=== PATIENT | female | born 1945 ===

== ENCOUNTER 2017-02-23 07:35 | Day surgery (SDC) | payer MEDICARE, MEDICAID ==
[2017-02-14 12:06] VITALS: BMI 34.5
[2017-02-23] MEDS ORDERED: Lactated Ringer's 1,000 ML IV ONE (14:15)
[2017-02-23] MEDS ORDERED: Bupivacaine/Epi 0.25%-1:200,000 10 ml PF inj IJ ONE (14:15)
[2017-02-23] MEDS ORDERED: Lidocaine 2% Inj (20ml) ONE (14:15)
[2017-02-23] MEDS ORDERED: ceFAZolin IV 2 gm in Dextrose 1 GM/50 ML BAG IVPB ONE (14:16)
[2017-02-23] MEDS ORDERED: Midazolam 2 MG/2 ML VIAL ONE (14:19)
[2017-02-23] MEDS ORDERED: Propofol 10 mg/ml Inj (20 ML) ONE (14:19)
--- NOTE | 2017-02-23 15:02 | MAM ---
PROCEDURE: Knee localization procedure. HISTORY: LEFT BREAST NEEDLE LOCALIZATION COMPARISON: None TECHNIQUE: Standard protocol for this study/examination. FINDINGS: Informed consent obtained Time-out procedure performed. Sterile technique utilized. Needle localization procedure employing 5 cm hookwire. IMPRESSION: Confirmation of the and of the hook wire and the adjacent micro clip. Pathology results are pending.
[2017-02-23] MEDS ORDERED: HYDROmorphone 0.5 mg/0.5 ml ISec IVP PRN (15:06)
[2017-02-23] MEDS ORDERED: HYDROmorphone 0.5 mg/0.5 ml ISec ONE (15:18)
[2017-02-23] MEDS ORDERED: Oxycodone/Acetaminophen 5/325 mg Tab PO PRN (15:29)
--- NOTE | 2017-02-23 15:44 | OP ---
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 PROCEDURE PERFORMED: Needle localization left excisional breast biopsy. SURGEON: Vincent Miller MD ANESTHESIA: General. ESTIMATED BLOOD LOSS: 30 mL. POSTOPERATIVE CONDITION: Stable. INDICATIONS FOR SURGERY: This is a 71-year-old female who presents with a diagnosis of carcinoma in situ with the central portion of the left breast diagnosed by an ultrasound-guided needle biopsy. Sh e now presents for a wider excision of the area to determine the extent of the carcinoma in situ by u ndergoing needle localization and open breast biopsy. PROCEDURE: The patient taken to the operating room after the lesion was localized in the radiologic suite. General anesthesia administered and the left breast was prepped and draped. A generous curvi linear incision was made over the nipple near the wire and superior and inferior flaps were raised in cluding the wire which was then transected. This was carried down to the chest wall and a large wedg e of tissue was removed. Bleeding was controlled using the Bovie. A chest wall blood vessel was rep aired. Wound was irrigated with saline. After irrigation took place, generous tissue flaps were powell sed using the Bovie and adjacent tissue transfer closure was performed using multiple layers of Monoc ryl, subcuticular Monocryl, and skin clips. The patient tolerated procedure well, [facility]. Vincent Miller MD cc: [id number] TT: 02/23/2017 15:42:37 jn
[2017-02-23 16:20] VITALS: O2SAT 99
[2017-02-23 17:06] VITALS: BP 160/60; PULSE 77; RESP 18; TEMP 97
== END 2017-02-23 17:08 | disposition home or self-care (01) ==
LOC: C.SDS 07:35
PROVIDERS: ATTEND Surgery
DX: D05.92 Unspecified type of carcinoma in situ of left breast (principal)
CPT/HCPCS: 19125; 19281; 88307; J0690; J2250; J2704; J3010; J7120

== ENCOUNTER 2017-08-16 17:14 | Observation (INO) | payer MEDICARE, MEDICAID ==
[2017-08-16 17:15] VITALS: BMI 34.5
[2017-08-16] MEDS ORDERED: Enoxaparin 40 mg Syringe SC STA (17:31)
--- NOTE | 2017-08-16 17:36 | C.PDOC ---
History Of Present Illness 71 year old female brought to ED by EMS from Dr. Ardon's office for evaluation of new onset of rapid A-fib at 150bpm. Pt c/o palpitations for 2 days. Had been referred to Dr. Ardon for SLOW heart rhythem without bradycardia noted on prior EKG's. No history of rapid A- fib in the past. Given Cardizem IV bolus without drip en route from Dr. Ardon's office. Pt recently had recent normal cardiac catherization with normal EF. Denies shortness of breath, headache, fever, chills cough, nausea, vomiting, diaphoresis, jaw pain, back pain, lower extremity pain/swelling, recent travels , recent surgery, or recent prolonged immobilization. Time Seen by Provider: 08/16/17 17:30 Chief Complaint (Nursing): Palpitations History Per: Patient History/Exam Limitations: no limitations Onset/Duration Of Symptoms: Hrs Current Symptoms Are (Timing): Still Present Reports Recently: Treated By A Physician Recent travel outside of the [place]: No Additional History Per: Patient Past Medical History Reviewed: Historical Data, Nursing Documentation, Vital Signs Vital Signs: Last Vital Signs Temp 98.8 F 08/16/17 17:19 Pulse 101 H 08/16/17 18:42 Resp 18 08/16/17 18:42 BP 120/50 L 08/16/17 18:42 Pulse Ox 97 08/16/17 18:42 - Medical History PMH: Asthma, Fractures (left ankle orif), HTN, Hypercholesterolemia, TIA (2 yeras ago) Surgical History: Endoscopy - [facility] Procedures CORONAR ARTERIOGR-2 CATH (02/08/12) LEFT HEART CARDIAC CATH (02/08/12) RT & LT HEART ANGIOCARD (02/08/12) Family History: States: Unknown Family Hx - Social History Hx Alcohol Use: No Hx Substance Use: No Review Of Systems Except As Marked, All Systems Reviewed And Found Negative. Constitutional: Negative for: Fever, Chills Cardiovascular: Positive for: Palpitations. Negative for: Chest Pain, Edema, Light Headedness Respiratory: Negative for: Cough, Shortness of Breath Gastrointestinal: Negative for: Nausea, Vomiting, Abdominal Pain, Diarrhea Skin: Negative for: Rash, Other Neurological: Negative for: Weakness, Numbness, Headache, Dizziness Physical Exam - Physical Exam Appears: Well, Non-toxic, No Acute Distress Skin: Normal Color, Warm, Dry Head: Atraumatic, Normacephalic Eye(s): bilateral: Normal Inspection, PERRL, EOMI Oral Mucosa: Moist Neck: Normal ROM, Supple Chest: Symmetrical Cardiovascular: Rhythm Regular, No Murmur Respiratory: Normal Breath Sounds, No Rales, No Rhonchi, No Wheezing Gastrointestinal/Abdominal: Soft, No Tenderness Back: No CVA Tenderness Extremity: Normal ROM, No Pedal Edema, No Deformity Neurological/Psych: Oriented x3, Normal Speech, Normal Cognition ED Course And Treatment - Laboratory Results Result Diagrams: 08/16/17 17:50 08/16/17 17:50 Lab Interpretation: Normal (trop neg.) ECG: Interpreted By Me ECG Rhythm: Atrial Fibrillation ECG Interpretation: Normal Rate From EC O2 Sat by Pulse Oximetry: 98 (RA) Pulse Ox Interpretation: Normal - Radiology CXR: Interpreted by Me CXR Interpretation: Yes: No Acute Disease, Infiltrates Progress Note: cardizem PO and lovenox SQ Reevaluation Time: 19:22 Reassessment Condition: Improved - Physician Consult Information Outcome Of Conversation: 1600: d/w Dr. Ardon- Cardio- prior to arrivanl. 1914: d /w Dr. Pyle- PMD, ok to Tele Obs. Medical Decision Making Medical Decision Making: new onset AF h/o normal cardiac cath and normal EJF Disposition Doctor Will See Patient In The: Hospital Counseled Patient/Family Regarding: Studies Performed, Diagnosis - Disposition Disposition: HOSPITALIZED Disposition Time: 18:29 Condition: GOOD - Clinical Impression Clinical Impression: New onset of headaches after age 52 - Scribe Statement The provider has reviewed the documentation as recorded by the Elvis Byrd All medical record entries made by the Elvis were at my direction and personally dictated by me. I have reviewed the chart and agree that the record accurately reflects my personal performance of the history, physical exam, medical decision making, and the department course for this patient. I have also personally directed, reviewed, and agree with the discharge instructions and disposition.
[2017-08-16] MEDS ORDERED: Enoxaparin 100 mg Syringe SC STA (17:37)
[2017-08-16 17:59] LABS: BASO % 0.5 % (0.0-2.0); EOS # 0.2 K/uL (0.0-0.7); EOS % 2.5 % (0.0-4.0); HEMATOCRIT 36.1 % (34.0-47.0); LYMPH # 2.2 K/uL (1.0-4.3); LYMPH % 30.3 % (20.0-40.0); MEAN CELL VOLUME 89.1 fL (81.0-99.0); MEAN CORPUSCULAR HEMOGLOBIN 29.8 pg (27.0-31.0); MEAN CORPUSCULAR HGB CONC 33.4 g/dL (33.0-37.0); MEAN PLATELET VOLUME 8.9 fL (7.2-11.7); MONO # 0.5 K/uL (0.0-0.8); MONO % 7.1 % (0.0-10.0); NRBC % 0.1 % (0.0-2.0); RED CELL DISTRIBUTION WIDTH 14.2 % (11.5-14.5); WHITE BLOOD COUNT 7.1 K/uL (4.8-10.8)
--- NOTE | 2017-08-16 18:09 | RAD ---
HISTORY: SOB COMPARISON: None available. TECHNIQUE: Chest, one view. FINDINGS: LUNGS: Biapical pleural thickening. No focal consolidation. Please note that chest x-ray has limited sensitivity for the detection of pulmonary masses. PLEURA: No significant pleural effusion identified. No definite pneumothorax . CARDIOVASCULAR: Heart size appears within normal limits. OSSEOUS STRUCTURES: Degenerative changes of the spine. VISUALIZED UPPER ABDOMEN: Unremarkable. OTHER FINDINGS: None. IMPRESSION: Biapical pleural thickening.
[2017-08-16 18:18] LABS: CHLORIDE 107 mmol/L (98-107); SODIUM 138 mmol/L (132-148)
[2017-08-16 18:19] LABS: POTASSIUM 4.2 mmol/L (3.6-5.2)
[2017-08-16 18:21] LABS: ALB/GLOB RATIO 1.3 (1.0-2.1); ALKALINE PHOSPHATASE 85 U/L (38-126); AST/SGOT 21 U/L (14-36); BILIRUBIN,TOTAL 0.6 mg/dL (0.2-1.3); BLOOD UREA NITROGEN 17 mg/dL (7-17); CARBON DIOXIDE 21 mmol/L (22-30); GFR AFRICAN-AMERICAN > 60; GLUCOSE,RANDOM 89 mg/dL (65-105); TOTAL PROTEIN 6.7 g/dL (6.3-8.3)
[2017-08-16 18:22] LABS: ALT/SGPT 22 U/L (9-52); CALCIUM 8.4 mg/dl (8.6-10.4)
[2017-08-16] MEDS ORDERED: Albuterol HFA 90 mcg/actuation (8 g) IH PRN (22:44)
[2017-08-16] MEDS ORDERED: Oxycodone/Acetaminophen 5/325 mg Tab ONE (23:15)
[2017-08-16] MEDS: Oxycodone/Acetaminophen 5/325 mg Tab PO PRN (23:15)
--- NOTE | 2017-08-16 23:23 | CP.PCM.PN ---
Subjective - Date & Time of Evaluation Date of Evaluation: 08/16/17 Time of Evaluation: 23:22 - Subjective Subjective: Patient for AURY cardioversion tomorrow Objective - Vital Signs/Intake and Output Vital Signs (last 24 hours): Temp Pulse Resp BP Pulse Ox 98.8 F 105 H 16 111/56 L 99 08/16/17 17:19 08/16/17 23:04 08/16/17 23:04 08/16/17 23:04 08/16/17 23:04 - Medications Medications: Current Medications Albuterol (Ventolin Hfa 90 Mcg/Actuation (8 G)) 2 puff IH RQ6 PRN PRN Reason: Shortness of Breath Diltiazem HCl (Cardizem) 60 mg PO Q8H [facility] Docusate Sodium (Colace) 100 mg PO DAILY [facility] Enoxaparin Sodium (Lovenox) 60 mg SC Q12 [facility] Losartan Potassium (Cozaar) 50 mg PO DAILY [facility] Metoprolol Tartrate (Lopressor) 50 mg PO BID [facility] Montelukast Sodium (Singulair) 10 mg PO DAILY [facility] Oxycodone/Acetaminophen (Percocet 5/325 Mg Tab) 2 tab PO Q4H PRN PRN Reason: Pain, moderate (4-7) Stop: 08/19/17 22:49 Rosuvastatin Calcium (Crestor) 2.5 mg PO HS [facility] Fluticasone/Salmeterol (Advair Diskus 250/50) 1 puff IH RQ12 [facility] - Labs Labs: 08/16/17 17:50 08/16/17 17:50 PT 11.3 SECONDS (9.7-12.2) 08/16/17 17:50 INR 1.0 08/16/17 17:50 APTT 28 SECONDS (21-34) 08/16/17 17:50
[2017-08-17] MEDS ORDERED: Atropine 0.4 mg/ml Inj (1 mL) ONE (07:36)
[2017-08-17] MEDS ORDERED: Propofol 10 mg/ml Inj (20 ML) ONE (07:36)
[2017-08-17] MEDS ORDERED: Esmolol 100 mg/10ml Inj IV ONE (07:36)
[2017-08-17] MEDS ORDERED: Albuterol HFA 90 mcg/actuation (8 g) ONE (07:36)
[2017-08-17] MEDS ORDERED: Lidocaine 4% (Laryng-O-Jet) Kit MM ONE (08:03)
[2017-08-17] MEDS: Fluticasone-Salmeterol 250-50mcg Diskus IH SCH ×2 (09:17→19:30)
[2017-08-17] MEDS ORDERED: Enoxaparin 60 mg Syringe SC SCH (10:00)
--- NOTE | 2017-08-17 10:30 | CP.PCM.PN ---
Subjective - Date & Time of Evaluation Date of Evaluation: 08/17/17 Time of Evaluation: 10:28 - Subjective Subjective: Patient s/p AURY and cardioversion to NSR Start Eliquis 5mg po bid for 6 weeks Overnight observation D/c in am if stable Objective - Vital Signs/Intake and Output Vital Signs (last 24 hours): Temp Pulse Resp BP Pulse Ox 98 F 105 H 20 140/87 97 08/17/17 07:20 08/17/17 07:20 08/17/17 07:20 08/17/17 07:20 08/17/17 07:20 - Medications Medications: Current Medications Albuterol (Ventolin Hfa 90 Mcg/Actuation (8 G)) 2 puff IH RQ6 PRN PRN Reason: Shortness of Breath Diltiazem HCl (Cardizem) 60 mg PO Q8H [facility] Last Admin: 08/17/17 03:20 Dose: 60 mg Docusate Sodium (Colace) 100 mg PO DAILY [facility] Enoxaparin Sodium (Lovenox) 60 mg SC Q12 [facility] Losartan Potassium (Cozaar) 50 mg PO DAILY [facility] Metoprolol Tartrate (Lopressor) 50 mg PO BID [facility] Montelukast Sodium (Singulair) 10 mg PO DAILY [facility] Oxycodone/Acetaminophen (Percocet 5/325 Mg Tab) 2 tab PO Q4H PRN PRN Reason: Pain, moderate (4-7) Stop: 08/19/17 22:49 Last Admin: 08/16/17 23:15 Dose: 2 tab Pantoprazole Sodium (Protonix Inj) 40 mg IVP DAILY [facility] Rosuvastatin Calcium (Crestor) 2.5 mg PO HS [facility] Fluticasone/Salmeterol (Advair Diskus 250/50) 1 puff IH RQ12 [facility] Last Admin: 08/17/17 09:17 Dose: Not Given - Labs Labs: 08/16/17 17:50 08/16/17 17:50 PT 11.3 SECONDS (9.7-12.2) 08/16/17 17:50 INR 1.0 08/16/17 17:50 APTT 28 SECONDS (21-34) 08/16/17 17:50
[2017-08-17 13:45] LABS: CHLORIDE 106 mmol/L (98-107); POTASSIUM 4.1 mmol/L (3.6-5.2); SODIUM 136 mmol/L (132-148)
[2017-08-17 13:47] LABS: ALKALINE PHOSPHATASE 67 U/L (38-126); AST/SGOT 45 U/L (14-36); BILIRUBIN,TOTAL 0.5 mg/dL (0.2-1.3); CARBON DIOXIDE 20 mmol/L (22-30); GFR AFRICAN-AMERICAN > 60; TOTAL PROTEIN 7.7 g/dL (6.3-8.3)
[2017-08-17 13:48] LABS: ALT/SGPT 26 U/L (9-52); BLOOD UREA NITROGEN 14 mg/dL (7-17); GLUCOSE,RANDOM 110 mg/dL (65-105); MAGNESIUM 1.9 mg/dL (1.6-2.3); PHOSPHOROUS 3.6 mg/dL (2.5-4.5)
--- NOTE | 2017-08-17 15:04 | CP.PCM.PN ---
Subjective - Date & Time of Evaluation Date of Evaluation: 08/17/17 Time of Evaluation: 15:00 - Subjective Subjective: PROGRESS NOTE. Attending: Dr. MARTINEZ This is a 71 year old female, originally from [place], with past medical history of asthma, HTN, HLD, breast cancer, presenting with new onset atrial fibrillation. patient had previously been seeing Dr. Ardon for "chest pain." However, she says that he told her it was non cardiac in origin and and instead related to a pinched nerve. She was told to follow up with Dr. Martinez. On day of admission, she instead went to see Dr. Ardon because she was feeling short of breath. Dr. Ardon saw that she was very tachy with a fib and sent her to [facility]. Her only symptom was shortness of breath. She denies ever being diagnosed with a fib before. PMH: Breast cancer, s/p radiation tx (completed) and lumpectomy, asthma, HTN, HLD, GERD PSH: lumpectomy Allergies: NKDA FH: Breast cancer, epilepsy Home meds: losartan, simvastatin, vitamin D/calcium, pantoprazole, metoprolol, singulair Social hx: Former smoker. No drinking. No drug use. From [place]. Objective - Vital Signs/Intake and Output Vital Signs (last 24 hours): Temp Pulse Resp BP Pulse Ox 97.8 F 55 L 20 111/54 L 99 08/17/17 13:30 08/17/17 13:30 08/17/17 13:30 08/17/17 13:30 08/17/17 13:30 - Medications Medications: Current Medications Albuterol (Ventolin Hfa 90 Mcg/Actuation (8 G)) 2 puff IH RQ6 PRN PRN Reason: Shortness of Breath Apixaban (Eliquis) 5 mg PO BID [facility] Last Admin: 08/17/17 10:45 Dose: 5 mg Diltiazem HCl (Cardizem) 60 mg PO Q8H [facility] Last Admin: 08/17/17 11:43 Dose: Not Given Docusate Sodium (Colace) 100 mg PO DAILY [facility] Last Admin: 08/17/17 11:44 Dose: Not Given Losartan Potassium (Cozaar) 50 mg PO DAILY [facility] Last Admin: 08/17/17 11:44 Dose: Not Given Metoprolol Tartrate (Lopressor) 50 mg PO BID [facility] Last Admin: 08/17/17 11:57 Dose: 50 mg Montelukast Sodium (Singulair) 10 mg PO DAILY [facility] Last Admin: 08/17/17 11:46 Dose: Not Given Oxycodone/Acetaminophen (Percocet 5/325 Mg Tab) 2 tab PO Q4H PRN PRN Reason: Pain, moderate (4-7) Stop: 08/19/17 22:49 Last Admin: 08/16/17 23:15 Dose: 2 tab Pantoprazole Sodium (Protonix Inj) 40 mg IVP DAILY [facility] Last Admin: 08/17/17 11:45 Dose: Not Given Rosuvastatin Calcium (Crestor) 2.5 mg PO HS [facility] Fluticasone/Salmeterol (Advair Diskus 250/50) 1 puff IH RQ12 [facility] Last Admin: 08/17/17 09:17 Dose: Not Given - Labs Labs: 08/16/17 17:50 08/17/17 13:00 PT 11.3 SECONDS (9.7-12.2) 08/16/17 17:50 INR 1.0 08/16/17 17:50 APTT 28 SECONDS (21-34) 08/16/17 17:50 - Constitutional Appears: Non-toxic, No Acute Distress - Head Exam Head Exam: ATRAUMATIC, NORMAL INSPECTION, NORMOCEPHALIC - Eye Exam Eye Exam: EOMI - ENT Exam ENT Exam: Mucous Membranes Moist - Respiratory Exam Respiratory Exam: NORMAL BREATHING PATTERN. absent: Respiratory Distress - Cardiovascular Exam Cardiovascular Exam: REGULAR RHYTHM, +S1, +S2 - GI/Abdominal Exam GI & Abdominal Exam: Soft, Normal Bowel Sounds. absent: Tenderness - Neurological Exam Neurological Exam: Alert, Awake, Oriented x3 - Psychiatric Exam Psychiatric exam: Normal Affect, Normal Mood - Skin Skin Exam: Dry, Intact, Normal Color, Warm Assessment and Plan - Assessment and Plan (Free Text) Assessment: This is a 71 yo female presenting with new onset a fib 1. New onset a fib -cardioverted to sinus rhythm -cardio consult. recs appreciated -will chesk tsh. -continue eliquis 5 po bid -continue cardizem 60 q 8 2. hx of asthma -continue singulair -continue advair -continue albuterol 3. hx of htn -continue losartan 50 daily -continue lopressor bid 4. hx of HLD -continue crestor 5 GI/DVT ppx -protonix daily -eliquis BID discussed with Dr. Martinez
[2017-08-17] MEDS: Oxycodone/Acetaminophen 5/325 mg Tab PO PRN (16:28)
--- NOTE | 2017-08-17 21:40 | CARD ---
APPROVED REPORT EXAM: Transesophageal echocardiogram with color flow Doppler and Synchronized Cardioversion. INDICATION Atrial Fibrillation Mitral Valve E/A ratio0.0 TDI E/Lateral E'0.0E/Medial E'0.0 Reason For Test : Rule out Intracardiac Thrombus. PROCEDURE After obtaining informed consent, patient underwent transesophageal echo in the [employer]. Type of Sedation : Conscious Sedation Sedation was provided by anesthesiologist. Sedation was achieved with intravenously. The AURY was performed complications. Synchronized Cardioversion acheived with 120 Joules after 1 attempt(s). Rhythm following Synchronized Cardioversion: Normal Sinus Rhythm Throughout the procedure, the blood pressure, pulse oximetry, cardiac rhythm, and rate were monitored. The patient tolerated the procedure without adverse effects. Recovery from conscious sedation was uneventful and vital signs were stable. LEFT VENTRICLE The left ventricle is normal size. The left ventricular function is normal. The left ventricular ejection fraction is within the normal range. There is normal LV segmental wall motion. There is no ventricular septal defect visualized. There is no left ventricular aneurysm. RIGHT VENTRICLE The right ventricle is normal size. The right ventricular systolic function is normal. ATRIA The left atrium is moderately dilated. The right atrium is moderately dilated. The interatrial septum is intact with no evidence for an atrial septal defect. AORTIC VALVE The aortic valve is normal in structure. No aortic regurgitation is present. There is no aortic valvular stenosis. There is no aortic valvular vegetation. MITRAL VALVE The mitral valve is normal in structure. There is no evidence of mitral valve prolapse. There is no mitral valve stenosis. There is no mitral valve regurgitation noted. TRICUSPID VALVE The tricuspid valve is normal in structure. There is mild tricuspid regurgitation. There is no tricuspid valve prolapse or vegetation. PULMONIC VALVE The pulmonary valve is normal in structure. GREAT VESSELS The aortic root is normal in size. <Conclusion> AURY findings as described Successful electrical cardioversion from A fib to NSR
[2017-08-17] MEDS ORDERED: Rosuvastatin Calcium 2.5 mg Tab PO SCH (22:00)
--- NOTE | 2017-08-18 00:29 | CARD ---
APPROVED REPORT EKG Measurement Heart [id number] <Conclusion> Atrial fibrillation Abnormal ECG
--- NOTE | 2017-08-18 08:19 | CP.PCM.PN ---
Subjective - Date & Time of Evaluation Date of Evaluation: 08/18/17 Time of Evaluation: 08:18 - Subjective Subjective: Given prior hx of bradycardia will d/c Cardizem Increase Metoprolol to 75 mg po bid HTN management Eliquis 5 mg po bid for 6 weeks if she maintains Sinus rhythm otherwise may need life long anticoagulation PMH: Breast cancer, s/p radiation tx (completed) and lumpectomy, asthma, HTN, HLD, GERD PSH: lumpectomy Allergies: NKDA FH: Breast cancer, epilepsy Home meds: losartan, simvastatin, vitamin D/calcium, pantoprazole, metoprolol, singulair Social hx: Former smoker. No drinking. No drug use. From [place]. Physical examination - Constitutional Appears: Non-toxic, No Acute Distress - Head Exam Head Exam: ATRAUMATIC, NORMAL INSPECTION, NORMOCEPHALIC - Eye Exam Eye Exam: EOMI - ENT Exam ENT Exam: Mucous Membranes Moist - Respiratory Exam Respiratory Exam: NORMAL BREATHING PATTERN. absent: Respiratory Distress - Cardiovascular Exam Cardiovascular Exam: REGULAR RHYTHM, +S1, +S2 - GI/Abdominal Exam GI & Abdominal Exam: Soft, Normal Bowel Sounds. absent: Tenderness - Neurological Exam Neurological Exam: Alert, Awake, Oriented x3 - Psychiatric Exam Psychiatric exam: Normal Affect, Normal Mood - Skin Skin Exam: Dry, Intact, Normal Color, Warm Objective - Vital Signs/Intake and Output Vital Signs (last 24 hours): Temp Pulse Resp BP Pulse Ox 97.9 F 57 L 18 155/79 H 97 08/18/17 07:45 08/18/17 07:45 08/18/17 07:45 08/18/17 07:45 08/18/17 07:45 Intake and Output: 08/18/17 08/18/17 06:59 18:59 Intake Total 240 Balance 240 - Medications Medications: Current Medications Albuterol (Ventolin Hfa 90 Mcg/Actuation (8 G)) 2 puff IH RQ6 PRN PRN Reason: Shortness of Breath Anastrozole (Arimidex 1 Mg Tab) 1 mg PO DAILY [facility] Apixaban (Eliquis) 5 mg PO BID [facility] Last Admin: 08/17/17 18:09 Dose: 5 mg Docusate Sodium (Colace) 100 mg PO DAILY [facility] Last Admin: 08/17/17 11:44 Dose: Not Given Losartan Potassium (Cozaar) 50 mg PO DAILY [facility] Last Admin: 08/17/17 11:44 Dose: Not Given Metoprolol Tartrate (Lopressor) 75 mg PO BID [facility] Montelukast Sodium (Singulair) 10 mg PO DAILY [facility] Last Admin: 08/17/17 11:46 Dose: Not Given Oxycodone/Acetaminophen (Percocet 5/325 Mg Tab) 2 tab PO Q4H PRN PRN Reason: Pain, moderate (4-7) Stop: 08/19/17 22:49 Last Admin: 08/17/17 16:28 Dose: 2 tab Pantoprazole Sodium (Protonix Inj) 40 mg IVP DAILY [facility] Last Admin: 08/17/17 11:45 Dose: Not Given Pneumococcal Polyvalent Vaccine (Pneumovax 23 Vaccine) 0.5 ml IM .ONCE ONE Stop: 08/19/17 10:01 Rosuvastatin Calcium (Crestor) 2.5 mg PO HS [facility] Last Admin: 08/17/17 21:20 Dose: 2.5 mg Fluticasone/Salmeterol (Advair Diskus 250/50) 1 puff IH RQ12 [facility] Last Admin: 08/17/17 19:30 Dose: Not Given - Labs Labs: 08/16/17 17:50 08/17/17 13:00 PT 11.3 SECONDS (9.7-12.2) 08/16/17 17:50 INR 1.0 08/16/17 17:50 APTT 28 SECONDS (21-34) 08/16/17 17:50 Assessment and Plan - Assessment and Plan (Free Text) Assessment: This is a 71 yo female presenting with new onset a fib 1. New onset a fib -cardioverted to sinus rhythm -continue eliquis 5 po bid 2. hx of asthma -continue singulair -continue advair -continue albuterol 3. hx of htn -continue losartan 50 daily -continue lopressor 75 bid 4. hx of HLD -continue crestor 5 GI/DVT ppx -protonix daily -eliquis BID
[2017-08-18] MEDS: Fluticasone-Salmeterol 250-50mcg Diskus IH SCH (10:39)
--- NOTE | 2017-08-18 11:18 | CP.PCM.PN ---
Subjective - Date & Time of Evaluation Date of Evaluation: 08/18/17 Time of Evaluation: 11:00 - Subjective Subjective: ANALYSIS SPECIALIST NOTES 71 yr old female admitted for afib patient seen today, meir ramos chest pain, sob, palpitations , dizziness No overnigh t events recoreded on monitor seen by Dr. Pyle today and cleared patient for discharge home today and f/u with Dr. Pyle office and Dr. Campos office discharge plan discussed with patient who understands and agrees with plan Objective - Vital Signs/Intake and Output Vital Signs (last 24 hours): Temp Pulse Resp BP Pulse Ox 97.9 F 57 L 18 155/79 H 97 08/18/17 07:45 08/18/17 07:45 08/18/17 07:45 08/18/17 07:45 08/18/17 07:45 Intake and Output: 08/18/17 08/18/17 06:59 18:59 Intake Total 240 Balance 240 - Medications Medications: Current Medications Albuterol (Ventolin Hfa 90 Mcg/Actuation (8 G)) 2 puff IH RQ6 PRN PRN Reason: Shortness of Breath Anastrozole (Arimidex 1 Mg Tab) 1 mg PO DAILY [facility] Last Admin: 08/18/17 10:06 Dose: 1 mg Apixaban (Eliquis) 5 mg PO BID [facility] Last Admin: 08/18/17 10:17 Dose: 5 mg Docusate Sodium (Colace) 100 mg PO DAILY [facility] Last Admin: 08/18/17 10:07 Dose: Not Given Losartan Potassium (Cozaar) 50 mg PO DAILY [facility] Last Admin: 08/18/17 10:05 Dose: 50 mg Metoprolol Tartrate (Lopressor) 75 mg PO BID [facility] Last Admin: 08/18/17 10:06 Dose: 75 mg Montelukast Sodium (Singulair) 10 mg PO [facility] Oxycodone/Acetaminophen (Percocet 5/325 Mg Tab) 2 tab PO Q4H PRN PRN Reason: Pain, moderate (4-7) Stop: 08/19/17 22:49 Last Admin: 08/17/17 16:28 Dose: 2 tab Pantoprazole Sodium (Protonix Inj) 40 mg IVP DAILY [facility] Last Admin: 08/18/17 10:05 Dose: 40 mg Pneumococcal Polyvalent Vaccine (Pneumovax 23 Vaccine) 0.5 ml IM .ONCE ONE Stop: 08/19/17 10:01 Rosuvastatin Calcium (Crestor) 2.5 mg PO HS [facility] Last Admin: 08/17/17 21:20 Dose: 2.5 mg Fluticasone/Salmeterol (Advair Diskus 250/50) 1 puff IH RQ12 [facility] Last Admin: 08/18/17 10:39 Dose: Not Given - Labs Labs: 08/16/17 17:50 08/17/17 13:00 PT 11.3 SECONDS (9.7-12.2) 08/16/17 17:50 INR 1.0 08/16/17 17:50 APTT 28 SECONDS (21-34) 08/16/17 17:50
[2017-08-18] MEDS ORDERED: Pneumococcal 23-Valent Vaccine IM ONE ×2 (11:35→11:45)
[2017-08-18 11:58] VITALS: BP 123/77; PULSE 58; RESP 20; TEMP 98.1; O2SAT 96
--- NOTE | 2017-08-18 16:46 | CARD ---
APPROVED REPORT EXAM: Two-dimensional and M-mode echocardiogram with Doppler and color Doppler. Other Information Quality : GoodRhythm : NSR INDICATION Atrial Fibrillation 2D DIMENSIONS IVSd1.3 (0.7-1.1cm)LVDd3.3 (3.9-5.9cm) PWd1.3 (0.7-1.1cm)LVDs2.3 (2.5-4.0cm) FS (%) 30.5 %LVEF (%)59.3 (>50%) M-Mode DIMENSIONS Left Atrium (MM)4.65 (2.5-4.0cm)Aortic Root3.07 (2.2-3.7cm) Aortic Cusp Exc.1.67 (1.5-2.0cm) Mitral Valve E/A ratio0.0 TDI E/Lateral E'0.0E/Medial E'0.0 Tricuspid Valve TR Peak [id number] Peak Gr.[id number] LEFT VENTRICLE The left ventricle is normal size. There is mild concentric left ventricular hypertrophy. Left ventricle systolic function is normal. The Ejection Fraction is 55-60%. There is normal LV segmental wall motion. Tissue Doppler imaging reveals abnormal left ventricular diastolic dysfunction. RIGHT VENTRICLE The right ventricle is normal size. There is normal right ventricular wall thickness. The right ventricular systolic function is normal. ATRIA The left atrium size is normal. The right atrium size is normal. The interatrial septum is intact with no evidence for an atrial septal defect. AORTIC VALVE The aortic valve is normal in structure. No aortic regurgitation is present. There is no aortic valvular stenosis. There is no aortic valvular vegetation. MITRAL VALVE The mitral valve is normal in structure. There is no evidence of mitral valve prolapse. There is no mitral valve stenosis. Mitral regurgitation is mild. TRICUSPID VALVE The tricuspid valve is normal in structure. There is mild tricuspid regurgitation. Right ventricular systolic pressure is estimated at 40-50 mmHg. There is mild-moderate pulmonary hypertension. PULMONIC VALVE The pulmonic valve is not well visualized. There is no pulmonic valvular regurgitation. GREAT VESSELS The aortic root is normal in size. PERICARDIAL EFFUSION There is no significant pericardial effusion. <Conclusion> Left ventricle systolic function is normal. The Ejection Fraction is 55-60%. Hypertensive heart disease. Diastolic dysfunction. No aortic regurgitation is present. Mitral regurgitation is mild. There is mild tricuspid regurgitation. There is mild-moderate pulmonary hypertension. There is no pulmonic valvular regurgitation.
[2017-08-19] MEDS ORDERED: Pneumococcal 23-Valent Vaccine IM ONE (10:00)
--- NOTE | 2017-08-19 18:11 | HP ---
HISTORY OF PRESENT ILLNESS: Ms. Nunez was admitted to the hospital with chief complaint of atrial fibrillation, new onset, clinical history of hypertension. The patient came to the ER, advised admission, said to have arthritis. The patient uses metoprolol 50 b.i.d. PHYSICAL EXAMINATION: VITAL SIGNS: Blood pressure , temperature 98, pulse rate 90 radial. HEENT: Within normal limits. NECK: Supple. CHEST: Symmetrical. HEART: Regular. ABDOMEN: Soft. EXTREMITIES: No edema. IMPRESSION: The patient suffers from atrial fibrillation, hypertension. Patient getting bedrest, anticoagulation, cardiology evaluation. Marcell Crews MD
--- NOTE | 2017-08-20 21:08 | CARD ---
APPROVED REPORT EKG Measurement Heart [id number] <Conclusion> Normal sinus rhythm Normal ECG
== END 2017-08-18 12:00 | disposition home or self-care (01) ==
LOC: C.ER 17:14 → C.9E 18:29 → C.6T 08-17 13:25
PROVIDERS: ADMIT Internal Medicine Pulmonary Disease; ATTEND Internal Medicine Pulmonary Disease
DX: I48.91 Unspecified atrial fibrillation (principal); I10 Essential (primary) hypertension; K21.9 Gastro-esophageal reflux disease without esophagitis; J45.909 Unspecified asthma, uncomplicated; E78.5 Hyperlipidemia, unspecified; Z92.3 Personal history of irradiation; Z85.3 Personal history of malignant neoplasm of breast; Z87.891 Personal history of nicotine dependence; M19.90 Unspecified osteoarthritis, unspecified site
CPT/HCPCS: 71010; 80053; 83735; 83880; 84100; 84443; 84484; 85025; 85610; 85730; 90732; 93005; 93306; 93312; 96372; 99285; C9113; G0009; G0378; J1650

== ENCOUNTER 2017-09-12 12:46 | Day surgery (SDC) | payer MEDICARE, MEDICAID ==
[2017-09-05 08:30] VITALS: BMI 39.3
[2017-09-12] MEDS ORDERED: Lactated Ringer's 1,000 ML IV ONE ×2 (17:06)
[2017-09-12] MEDS ORDERED: ceFAZolin IV 1 gm in Dextrose 1 GM/50 ML BAG IVPB ONE (17:12)
[2017-09-12] MEDS ORDERED: Midazolam 2 MG/2 ML VIAL ONE (17:12)
[2017-09-12] MEDS ORDERED: Lidocaine 1% Inj (20ml) ONE (17:12)
[2017-09-12] MEDS ORDERED: Bupivacaine HCl 0.25% PF (10 ml) Inj ONE (17:12)
[2017-09-12] MEDS ORDERED: Propofol 10 mg/ml Inj (20 ML) ONE (17:13)
[2017-09-12] MEDS ORDERED: Succinylcholine Chloride 20 mg/ml Syr (5 ml) IV ONE (17:15)
[2017-09-12] MEDS ORDERED: Oxycodone/Acetaminophen 5/325 mg Tab PO PRN (18:04)
[2017-09-12] MEDS ORDERED: HYDROmorphone 0.5 mg/0.5 ml ISec ONE (18:16)
[2017-09-12] MEDS: HYDROmorphone 0.5 mg/0.5 ml ISec IVP PRN ×2 (18:16→18:37)
[2017-09-12 20:11] VITALS: BP 165/59; PULSE 79; RESP 17; TEMP 97.2; O2SAT 93
--- NOTE | 2017-09-12 23:24 | OP ---
PROCEDURE DATE: 09/12/2017 PREOPERATIVE DIAGNOSIS: Bilateral breast mass. POSTOPERATIVE DIAGNOSIS: Left breast lipoma. PROCEDURE PERFORMED 1. Wide and deep excision of right breast mass with adjacent tissue transfer closure. 2. Left breast excisional biopsy. SURGEON: Dr. Miller. ANESTHESIA: General endotracheal. ESTIMATED BLOOD LOSS: 50 mL. POSTOPERATIVE CONDITION: Stable. INDICATIONS FOR SURGERY: This is a 71-year-old female presents with a hard inferior right breast mass and a smaller mass in the left breast not seen on mammogram but painful and both in need of needle biopsy. GROSS FINDINGS: On the right, there was a hard mass and indurated which was removed with normal tissue at its borders was also marked, in case the specimen came back malignant. A whole new tray was used for the left side; however, only a lipoma was found during this biopsy. PROCEDURE: The patient taken to the operating room, general anesthesia was administered. Both breasts were prepped and draped. Attention was turned to the right breast first and inferior mass measuring approximately 3 x 3 cm. A generous elliptical incision was made surrounding it. Tissue flaps were raised superiorly and inferiorly down to the breast fascia and was removed. Bleeding was controlled using the Bovie. Intercostal blood vessel was noted to be bleeding and was repaired using Prolene. The wound was irrigated with copious amounts of saline solution. Generous tissue flaps were raised using a Bovie and an advancement flap closure greater than 30 sq cm was performed using multiple layers of Monocryl, subcuticular Monocryl and skin clips. On the left, simple incision was made over the mass and it was dissected free and removed. Bleeding was controlled using the Bovie. A simple closure with Monocryl and clips were performed. The patient tolerated the procedure well, returned to recovery room in stable condition. Vincent Miller MD
== END 2017-09-12 19:55 | disposition home or self-care (01) ==
LOC: C.SDS 12:46
PROVIDERS: ATTEND Surgery
DX: N63.0 Unspecified lump in unspecified breast (principal)
CPT/HCPCS: 19101; 19120; 88304; 88307; J0690; J1170; J2250; J2704; J3010; J7120

== ENCOUNTER 2017-09-26 10:16 | Inpatient (IN) | payer MEDICARE, MEDICAID ==
[2017-09-05 08:30] VITALS: BMI 39.3
[2017-09-26] MEDS ORDERED: Lactated Ringer's 1,000 ML IV ONE ×2 (13:30→16:03)
[2017-09-26] MEDS ORDERED: ceFAZolin IV 2 gm in Dextrose 2 GM/50 ML BAG IVPB ONE (15:44)
[2017-09-26] MEDS: HYDROmorphone 0.5 mg/0.5 ml ISec IVP PRN ×3 (17:32→18:20)
[2017-09-26] MEDS ORDERED: Albuterol HFA 90 mcg/actuation (8 g) IH PRN (17:52)
--- NOTE | 2017-09-26 18:13 | CP.PCM.PN ---
Subjective - Date & Time of Evaluation Date of Evaluation: 09/26/17 Time of Evaluation: 17:59 - Subjective Subjective: Medicine Progress Note Patient is a 71 year old female who presents today after bilateral mastectomy with Dr Miller. The patient has history of breast cancer, asthma, HTN and A fib. Patient was seen and examined in the PACU after her procedure. She is alert, awake and oriented. Patient is complaining of pain in her chest from the surgery. Denies palpitations, shortness of breath, headache, dizziness, and abdominal pain. PMHx: Breast cancer s/p radiation tx and lumpectomy, asthma, HTN, GERD, A fib Surgical Hx: lumpectomy Family Hx: Breast cancer, epilepsy Social Hx: Former tobacco use, denies EtOH use, denies illicit drug use Allergies: NKDA Objective - Vital Signs/Intake and Output Vital Signs (last 24 hours): Temp Pulse Resp BP Pulse Ox 97.4 F L 51 L 20 154/85 H 100 09/26/17 10:38 09/26/17 10:38 09/26/17 10:38 09/26/17 10:38 09/26/17 10:38 - Medications Medications: Current Medications Albuterol (Ventolin Hfa 90 Mcg/Actuation (8 G)) 2 puff IH [id number] PRN PRN Reason: Shortness of Breath Anastrozole (Arimidex 1 Mg Tab) 1 mg PO DAILY [facility] Apixaban (Eliquis) 5 mg PO BID [facility] Docusate Sodium (Colace) 100 mg PO BID [facility] Docusate Sodium (Colace) 100 mg PO DAILY PRN PRN Reason: Constipation Home Med (Simvastatin [Simvastatin]) 10 mg PO HS [facility] Hydromorphone HCl (Dilaudid) 0.5 mg IVP Q5M PRN PRN Reason: Pain, severe (8-10) Stop: 09/26/17 19:24 Dextrose/Sodium Chloride (Dextrose 5%/0.45% Ns 1000 Ml) 1,000 mls @ 80 mls/hr IV .[id number] [facility] Cefazolin Sodium/Dextrose (Ancef Iv 1 Gm Duplex) 1 gm in 50 mls @ 100 mls/hr IVPB Q8 [facility] Ketorolac Tromethamine (Toradol) 30 mg IVP Q6 PRN PRN Reason: pain 8-10 Stop: 10/01/17 17:26 Losartan Potassium (Cozaar) 50 mg PO DAILY [facility] Metoprolol Tartrate (Lopressor) 75 mg PO BID [facility] Ondansetron HCl (Zofran Inj) 4 mg IVP ONCE PRN PRN Reason: Nausea/Vomiting Stop: 09/26/17 19:25 Ondansetron HCl (Zofran Inj) 4 mg IVP Q6 PRN PRN Reason: Nausea/Vomiting Oxycodone/Acetaminophen (Percocet 5/325 Mg Tab) 2 tab PO Q4H PRN PRN Reason: pain Stop: 09/29/17 17:26 Pantoprazole Sodium (Protonix Inj) 40 mg IVP DAILY [facility] Fluticasone/Salmeterol (Advair Diskus 250/50) 1 puff IH Q12 PRN PRN Reason: Shortness of Breath - Constitutional Appears: Non-toxic, No Acute Distress - Head Exam Head Exam: ATRAUMATIC, NORMOCEPHALIC - Eye Exam Eye Exam: EOMI, Normal appearance, PERRL Pupil Exam: NORMAL ACCOMODATION - ENT Exam ENT Exam: Mucous Membranes Moist, Normal Exam - Neck Exam Neck Exam: Normal Inspection - Respiratory Exam Respiratory Exam: Chest Wall Tenderness (anterior chest sore from surgery ), Clear to Ausculation Bilateral, NORMAL BREATHING PATTERN. absent: Rales, Rhonchi, Wheezes, Respiratory Distress - Cardiovascular Exam Cardiovascular Exam: REGULAR RHYTHM (@65bpm on tele monitor ), +S1, +S2. absent : Tachycardia, Irregular Rhythm, Murmur - GI/Abdominal Exam GI & Abdominal Exam: Soft, Normal Bowel Sounds. absent: Distended, Firm, Guarding, Tenderness - Extremities Exam Extremities Exam: Full ROM, Normal Inspection. absent: Pedal Edema, Tenderness - Neurological Exam Neurological Exam: Alert, Awake, Oriented x3 - Psychiatric Exam Psychiatric exam: Normal Affect, Normal Mood - Skin Skin Exam: Dry, Intact, Normal Color, Warm Additional comments: Chest bandage dry and clean Assessment and Plan - Assessment and Plan (Free Text) Assessment: Hx Breast cancer s/p bilateral mastectomy on 09/26/[address] Miller consulted Heme/onc Dr Cohn consulted- help appreciated Continue home med Anastrozole 1mg PO daily Pain management per surgeon PT mary eduardo Currently rate controlled Patient diagnosed in July and was seen by Dr Ardon at that time. Continue home meds: Eliquis 5mg PO BID (restart on 09/27) Metoprolol 75mg PO BID Hx Asthma SpO2 100%, well controlled Ventolin 2puff INH q6h prn SOB Advair 250/50 1 puff INH q12h HTN BP elevated after surgery. Given Hydralazine 10mg IV stat and Losartan 50mg PO x1 dose Continue home meds: Metoprolol 75mg PO BID Losartan 50mg PO daily Monitor and adjust meds as needed Prophylactic measures Eliquis 5mg PO BID (restart on 09/27) SCDs Protonix 40mg IV daily Management per Dr Crews
[2017-09-26] MEDS: ceFAZolin IV 1 gm in Dextrose 1 GM/50 ML BAG IVPB SCH (22:32)
[2017-09-26] MEDS: Rosuvastatin Calcium 2.5 mg Tab PO SCH (22:33)
[2017-09-26] MEDS: Dextrose 5%/0.45% NS 1,000 ML IV SCH (22:33)
--- NOTE | 2017-09-27 03:48 | OP ---
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 PROCEDURES PERFORMED: 1. Right modified radical mastectomy. 2. Left simple mastectomy (prophylactic). SURGEON: Vincent Miller MD ANESTHESIA: General. ESTIMATED BLOOD LOSS: 140 mL. POSTOPERATIVE CONDITION: Stable. INDICATION FOR SURGERY: A 71-year-old female who is status post a bilateral breast biopsy 3 weeks ago. Findings on the left included a benign tumor; however, findings on the right revealed a mucinous carcinoma of the inferior outer quadrant. Treatment options were discussed with the patient including breast-conserving therapy versus mastectomy versus mastectomy with prophylactic mastectomy on the left. The patient was very adamant that she wanted bilateral mastectomy. So, she is scheduled for a right modified radical mastectomy and left simple mastectomy today. GROSS FINDINGS: During the right modified radical mastectomy, some abnormally large lymph nodes were encountered in the right axilla. It was not clear whether these were reactive on the previous biopsy or possibly malignant. The right tumor was close to the chest wall and a portion of the mastectomy incision was on the inferior chest wall due to the location of the tumor. Because of this, a large advancement flap closure had to be performed prior to closure of the mastectomy, measuring approximately 70 to 80 sq. cm. DESCRIPTION OF PROCEDURE: The patient was taken to the operating room, general anesthesia was administered. Both breasts, chest wall, and neck were prepped and draped. Attention was first turned to the left prophylactic mastectomy. A standard mastectomy incision was made, fishmouth-type, surrounding the nipple. Superior and inferior flaps were raised using the Bovie down to the chest wall fascia. Bleeding was controlled using the Bovie. The breast was then taken off the chest wall musculature using the Bovie, and specimen was removed. Wound was irrigated with sterile water solution. A simple closure was performed with interrupted Monocryl and skin clips. Attention was then turned to the right side. A generous elliptical incision was made, some of it going to the chest wall immediately and would completely surround the previous biopsy site. This incision was carried into the right axilla. Superior flaps were raised first down to the chest wall fracture; and inferior flaps were then raised, some along the chest wall medially. The breast was then taken off the chest wall and abdominal fascia using the Bovie. blood vessel, which was bleeding, was repaired with Prolene. Next, the axillary dissection was carried out by removing all tissue, all contents inferior to the axillary vein, medial to the latissimus dorsi muscle, and lateral to the serratus anterior. Both the long thoracic nerve and the thoracodorsal artery and nerve were identified and preserved. The wound was irrigated with saline. Advancement flaps were raised medially in the breast incision and an advancement flap closure of approximately 8-cm was performed medially with multiple layers of Monocryl. Eliseo drains were left in both wounds prior to closure. The remaining portion of wound was closed with Monocryl and skin clips. The patient tolerated the procedure well and returned to recovery room in stable condition. Vincent Miller MD
[2017-09-27] MEDS: Oxycodone/Acetaminophen 5/325 mg Tab PO PRN ×4 (03:55→22:13)
[2017-09-27] MEDS: ceFAZolin IV 1 gm in Dextrose 1 GM/50 ML BAG IVPB SCH ×3 (05:29→21:20)
[2017-09-27] MEDS: Dextrose 5%/0.45% NS 1,000 ML IV SCH ×3 (06:02→19:34)
[2017-09-27] MEDS: Fluticasone-Salmeterol 250-50mcg Diskus IH PRN (08:23)
[2017-09-27] MEDS ORDERED: Enoxaparin 40 mg Syringe SC SCH (10:00)
[2017-09-27 17:47] LABS: BASO # 0.1 K/uL (0.0-0.2); BASO % 0.5 % (0.0-2.0); EOS # 0.1 K/uL (0.0-0.7); EOS % 1.4 % (0.0-4.0); LYMPH # 2.4 K/uL (1.0-4.3); LYMPH % 24.5 % (20.0-40.0); MEAN CELL VOLUME 88.5 fL (81.0-99.0); MEAN CORPUSCULAR HEMOGLOBIN 29.1 pg (27.0-31.0); MEAN CORPUSCULAR HGB CONC 32.9 g/dL (33.0-37.0); MEAN PLATELET VOLUME 9.1 fL (7.2-11.7); MONO # 0.9 K/uL (0.0-0.8); MONO % 9.3 % (0.0-10.0); RED CELL DISTRIBUTION WIDTH 14.2 % (11.5-14.5); WHITE BLOOD COUNT 9.9 K/uL (4.8-10.8)
[2017-09-27 18:02] LABS: ALB/GLOB RATIO 1.3 (1.0-2.1); BILIRUBIN,TOTAL 0.5 mg/dL (0.2-1.3); CALCIUM 8.4 mg/dl (8.6-10.4); POTASSIUM 4.2 mmol/L (3.6-5.2); TOTAL PROTEIN 6.3 g/dL (6.3-8.3)
[2017-09-27] MEDS: Rosuvastatin Calcium 2.5 mg Tab PO SCH (21:20)
--- NOTE | 2017-09-28 01:08 | CP.PCM.CON ---
History of Present Illness - History of Present Illness History of Present Illness: 71 year old female with a history of HTN, afib, left DCIS s/p lumpectomy, radiation, on aromatase inhibitor, diagnosed with right breast mucinous carcinoma, s/p right mastectomy with LN dissection and prophylactic left mastectomy. The patient reports to feeling well post surgery. She has mild surgical site discomfort but notes the pain is well controlled. Past medical history: HTN, afib, breast cancer Past surgical history: lumpectomy, b/l mastectomy Family history: Sister with breast cancer 30s Social history: Denies tobacco, alcohol, and illicit drug use. Allergies: Oral and IV contrast Review of systems: All remaining review of systems including HEENT, cardiovascular, respiratory, gastrointestinal, genitourinary, musculoskeletal, dermatologic, neurologic, and psychiatric are negative unless mentioned in the HPI. Past Patient History - Past Medical History & Family History Past Medical History?: Yes - Past Social History Smoking Status: Former Smoker - CARDIAC Hx Cardiac Disorders: Yes Hx Cardia Arrhythmia: Yes (ATRIAL FIB.) Hx Hypercholesterolemia: Yes Hx Hypertension: Yes - PULMONARY Hx Respiratory Disorders: Yes Hx Asthma: Yes (Last attack 3 years ago) - NEUROLOGICAL Hx Neurological Disorder: Yes Hx Transient Ischemic Attacks (TIA): Yes (2 years ago) - HEENT Hx HEENT Problems: No Other/Comment: wears glasses - RENAL Hx Chronic Kidney Disease: No - ENDOCRINE/METABOLIC Hx Endocrine Disorders: No - HEMATOLOGICAL/ONCOLOGICAL Hx Blood Disorders: Yes Hx Cancer: Yes (Breast CA on PO med ) - INTEGUMENTARY Hx Dermatological Problems: Yes Other/Comment: left breast biopsy site with felipe in place - MUSCULOSKELETAL/RHEUMATOLOGICAL Hx Musculoskeletal Disorders: Yes Hx Back Pain: Yes Hx Falls: No Hx Fractures: Yes (ORIF left ankle) Hx Herniated Disk: Yes (Lumbar) Hx Osteoarthritis: Yes - GASTROINTESTINAL Hx Gastrointestinal Disorders: No - GENITOURINARY/GYNECOLOGICAL Hx Genitourinary Disorders: Yes (Urinary frequency) Other/Comment: HX: OVARIAN CYST AND FALLOPIAN TUBE REMOVED 49 YEARS AGO-PER NOTES. - PSYCHIATRIC Hx Psychophysiologic Disorder: No Hx Substance Use: No - SURGICAL HISTORY Hx Surgeries: Yes Hx Breast Biopsy: Yes (bilateral) Hx Mastectomy: Yes (09/26/17 bilateral) Other/Comment: HX;removal ovarian cyst and fallopian tube 49 years ago. HX: Left breast lymphadectomy from breast CA. HX: AURY 08/17/17 - ANESTHESIA Hx Anesthesia: Yes Hx Anesthesia Reactions: No Hx Malignant Hyperthermia: No Has any member of the family had a problem w/ anesthesia?: No Meds Allergies/Adverse Reactions: Allergies Allergy/AdvReac Type Severity Reaction Status Date / Time Iodinated Contrast- Oral and Allergy Intermediate SHORTNESS Verified 08/16/17 17 :25 IV Dye OF BREATH [Iodinated Contrast Media - Oral and] - Medications Medications: Current Medications Albuterol (Ventolin Hfa 90 Mcg/Actuation (8 G)) 2 puff IH RQ6 PRN PRN Reason: Shortness of Breath Anastrozole (Arimidex 1 Mg Tab) 1 mg PO DAILY [facility] Last Admin: 09/27/17 10:43 Dose: 1 mg Apixaban (Eliquis) 5 mg PO BID [facility] Docusate Sodium (Colace) 100 mg PO BID [facility] Last Admin: 09/27/17 18:20 Dose: 100 mg Docusate Sodium (Colace) 100 mg PO DAILY PRN PRN Reason: Constipation Dextrose/Sodium Chloride (Dextrose 5%/0.45% Ns 1000 Ml) 1,000 mls @ 80 mls/hr IV .[id number] [facility] Last Admin: 09/27/17 19:34 Dose: Not Given Cefazolin Sodium/Dextrose (Ancef Iv 1 Gm Duplex) 1 gm in 50 mls @ 100 mls/hr IVPB Q8 [facility] Last Admin: 09/27/17 21:20 Dose: 100 mls/hr Ketorolac Tromethamine (Toradol) 30 mg IVP Q6 PRN PRN Reason: pain 8-10 Stop: 10/01/17 17:26 Last Admin: 09/26/17 21:34 Dose: 30 mg Losartan Potassium (Cozaar) 50 mg PO DAILY [facility] Last Admin: 09/27/17 10:44 Dose: 50 mg Metoprolol Tartrate (Lopressor) 75 mg PO BID [facility] Last Admin: 09/27/17 18:20 Dose: 75 mg Ondansetron HCl (Zofran Inj) 4 mg IVP Q6 PRN PRN Reason: Nausea/Vomiting Oxycodone/Acetaminophen (Percocet 5/325 Mg Tab) 2 tab PO Q4H PRN PRN Reason: pain Stop: 09/29/17 17:26 Last Admin: 09/27/17 22:13 Dose: 2 tab Pantoprazole Sodium (Protonix Inj) 40 mg IVP DAILY [facility] Last Admin: 09/27/17 10:48 Dose: 40 mg Rosuvastatin Calcium (Crestor) 2.5 mg PO HS [facility] Last Admin: 09/27/17 21:20 Dose: 2.5 mg Fluticasone/Salmeterol (Advair Diskus 250/50) 1 puff IH RQ12 PRN PRN Reason: Shortness of Breath Last Admin: 09/27/17 08:23 Dose: 1 puff Physical Exam - Head Exam Head Exam: ATRAUMATIC - Eye Exam Eye Exam: Normal appearance - ENT Exam ENT Exam: Mucous Membranes Dry - Respiratory Exam Respiratory Exam: NORMAL BREATHING PATTERN - Cardiovascular Exam Cardiovascular Exam: +S1, +S2 - GI/Abdominal Exam GI & Abdominal Exam: Normal Bowel Sounds - Extremities Exam Extremities exam: Positive for: normal inspection - Neurological Exam Neurological exam: Oriented x3 - Psychiatric Exam Psychiatric exam: Normal Affect, Normal Mood - Skin Skin Exam: Warm Results - Vital Signs Recent Vital Signs: Last Vital Signs Temp 98.4 F 09/27/17 15:14 Pulse 67 09/27/17 19:48 Resp 20 09/27/17 15:14 BP 124/63 09/27/17 19:48 Pulse Ox 99 09/27/17 15:14 - Labs Result Diagrams: 09/27/17 17:43 09/27/17 17:43 Labs: Laboratory Results - last 24 hr 09/27/17 09/27/17 09/27/17 06:31 11:38 16:48 WBC RBC Hgb Hct MCV MCH MCHC RDW Plt Count MPV Neut % (Auto) Lymph % (Auto) Phillips % (Auto) Eos % (Auto) Baso % (Auto) Neut # Lymph # Phillips # Eos # Baso # Sodium Potassium Chloride Carbon Dioxide Anion Gap BUN Creatinine Est GFR ( Amer) Est GFR (Non-Af Amer) POC Glucose (mg/dL) 116 H 128 H 125 H Random Glucose Calcium Total Bilirubin AST ALT Alkaline Phosphatase Total Protein Albumin Globulin Albumin/Globulin Ratio 09/27/17 09/27/17 09/27/17 17:43 17:43 21:40 WBC 9.9 RBC 3.39 L Hgb 9.9 L D Hct 30.0 L MCV 88.5 MCH 29.1 MCHC 32.9 L RDW 14.2 Plt Count 250 MPV 9.1 Neut % (Auto) 64.3 Lymph % (Auto) 24.5 Phillips % (Auto) 9.3 Eos % (Auto) 1.4 Baso % (Auto) 0.5 Neut # 6.4 Lymph # 2.4 Phillips # 0.9 H Eos # 0.1 Baso # 0.1 Sodium 136 Potassium 4.2 Chloride 102 Carbon Dioxide 27 Anion Gap 12 BUN 20 H Creatinine 1.2 Est GFR ( Amer) 54 Est GFR (Non-Af Amer) 45 POC Glucose (mg/dL) 112 H Random Glucose 106 H Calcium 8.4 L Total Bilirubin 0.5 AST 15 ALT 29 Alkaline Phosphatase 58 Total Protein 6.3 Albumin 3.6 Globulin 2.7 Albumin/Globulin Ratio 1.3 Assessment & Plan (1) Breast cancer Assessment and Plan: s/p mastectomy with axillary LN dissection f/u final path possible portacath depending on LN involvment case discussed with Dr. Miller Status: Acute (2) Anemia Assessment and Plan: surgical blood loss Thank you for this interesting consult. Status: Acute
[2017-09-28] MEDS: ceFAZolin IV 1 gm in Dextrose 1 GM/50 ML BAG IVPB SCH ×2 (05:35→21:38)
[2017-09-28] MEDS: Dextrose 5%/0.45% NS 1,000 ML IV SCH ×2 (05:44→08:27)
[2017-09-28] MEDS: Fluticasone-Salmeterol 250-50mcg Diskus IH PRN ×2 (07:36→19:23)
--- NOTE | 2017-09-28 14:59 | CON ---
DATE: 09/27/2017 HISTORY OF PRESENT ILLNESS: A 71-year-old female with history of hypertension, back pain, spinal stenosis and has a chief complaint of invasion of malignant breast cancer. The patient for biopsies. The patient is ready for surgery. SOCIAL HISTORY: The patient is nonsmoker. PHYSICAL EXAMINATION: GENERAL: Patient is awake, alert, oriented. VITAL SIGNS: Temperature 98, pulse 90. HEENT: Within normal limits. NECK: Supple. CHEST: Symmetrical. HEART: Regular. ABDOMEN: Soft. EXTREMITIES: No edema. IMPRESSION: The patient suffers from breast cancer, hypertension, back pain. The patient is getting blood pressure medications. I am going to discuss with Oncology and Surgery. Marcell Crews MD
[2017-09-28] MEDS: Oxycodone/Acetaminophen 5/325 mg Tab PO PRN (17:33)
[2017-09-28] MEDS: Rosuvastatin Calcium 2.5 mg Tab PO SCH (21:38)
--- NOTE | 2017-09-28 22:28 | CP.PCM.PN ---
Subjective - Date & Time of Evaluation Date of Evaluation: 09/28/17 Time of Evaluation: 19:30 - Subjective Subjective: Mild post op pain Objective - Vital Signs/Intake and Output Vital Signs (last 24 hours): Temp Pulse Resp BP Pulse Ox 98.5 F 55 L 20 163/69 H 98 09/28/17 15:25 09/28/17 15:25 09/28/17 15:25 09/28/17 17:39 09/28/17 15:25 Intake and Output: 09/28/17 09/29/17 18:59 06:59 Intake Total 600 Output Total 45 Balance 555 - Medications Medications: Current Medications Albuterol (Ventolin Hfa 90 Mcg/Actuation (8 G)) 2 puff IH RQ6 PRN PRN Reason: Shortness of Breath Anastrozole (Arimidex 1 Mg Tab) 1 mg PO DAILY [facility] Last Admin: 09/27/17 10:43 Dose: 1 mg Apixaban (Eliquis) 5 mg PO BID [facility] Docusate Sodium (Colace) 100 mg PO BID [facility] Last Admin: 09/28/17 17:33 Dose: 100 mg Docusate Sodium (Colace) 100 mg PO DAILY PRN PRN Reason: Constipation Cefazolin Sodium/Dextrose (Ancef Iv 1 Gm Duplex) 1 gm in 50 mls @ 100 mls/hr IVPB Q8 [facility] Last Admin: 09/28/17 21:38 Dose: 100 mls/hr Losartan Potassium (Cozaar) 50 mg PO DAILY [facility] Last Admin: 09/28/17 10:30 Dose: 50 mg Metoprolol Tartrate (Lopressor) 75 mg PO BID [facility] Last Admin: 09/28/17 17:39 Dose: 75 mg Ondansetron HCl (Zofran Inj) 4 mg IVP Q6 PRN PRN Reason: Nausea/Vomiting Oxycodone/Acetaminophen (Percocet 5/325 Mg Tab) 2 tab PO Q4H PRN PRN Reason: pain Stop: 09/29/17 17:26 Last Admin: 09/28/17 17:33 Dose: 2 tab Pantoprazole Sodium (Protonix Inj) 40 mg IVP DAILY [facility] Last Admin: 09/27/17 10:48 Dose: 40 mg Rosuvastatin Calcium (Crestor) 2.5 mg PO HS [facility] Last Admin: 09/28/17 21:38 Dose: 2.5 mg Fluticasone/Salmeterol (Advair Diskus 250/50) 1 puff IH RQ12 PRN PRN Reason: Shortness of Breath Last Admin: 09/28/17 19:23 Dose: 1 puff - Labs Labs: 09/27/17 17:43 09/27/17 17:43 - Head Exam Head Exam: ATRAUMATIC - Eye Exam Eye Exam: Normal appearance - ENT Exam ENT Exam: Mucous Membranes Dry - Respiratory Exam Respiratory Exam: NORMAL BREATHING PATTERN - Cardiovascular Exam Cardiovascular Exam: +S1, +S2 - GI/Abdominal Exam GI & Abdominal Exam: Normal Bowel Sounds - Extremities Exam Extremities Exam: Normal Inspection Assessment and Plan (1) Breast cancer Assessment & Plan: outpatient f/u of final pathology report Status: Acute (2) Anemia Status: Acute
[2017-09-29] MEDS: ceFAZolin IV 1 gm in Dextrose 1 GM/50 ML BAG IVPB SCH ×2 (05:32→13:35)
[2017-09-29] MEDS: Oxycodone/Acetaminophen 5/325 mg Tab PO PRN (05:35)
[2017-09-29 09:21] VITALS: PULSE 54; RESP 18; TEMP 98.3; O2SAT 99
[2017-09-29 09:41] VITALS: BP 154/85
== END 2017-09-29 14:45 | disposition home or self-care (01) | DRG 583 ==
LOC: C.9S 10:16 → EEVIPCON 10:16 → C.6T 19:34
PROVIDERS: ADMIT Surgery; ATTEND Surgery
PROC: 0HTV0ZZ Resection of Bilateral Breast, Open Approach (ICD-10-PCS; principal; 2017-09-26 13:15)
DX: C50.911 Malignant neoplasm of unspecified site of right female breast (principal); I48.91 Unspecified atrial fibrillation; D64.9 Anemia, unspecified; G40.909 Epilepsy, unspecified, not intractable, without status epilepticus; I10 Essential (primary) hypertension; J45.909 Unspecified asthma, uncomplicated

== ENCOUNTER 2017-10-17 09:49 | Emergency (ER) | payer MEDICARE, MEDICAID ==
[2017-10-17 09:49] VITALS: BMI 39.3
[2017-10-17 09:59] VITALS: RESP 20; TEMP 98.2; O2SAT 97
--- NOTE | 2017-10-17 11:37 | C.PDOC ---
History Of Present Illness 71 y/o female s/p mastectomy bilateral 09-26-17, by Dr. Miller. The patient noticed today upon awakening the bed sheets were saturated from the left chest wall. The patient denies fever and chill. Time Seen by Provider: 10/17/17 10:17 Chief Complaint (Nursing): Wound Check History Per: Patient History/Exam Limitations: no limitations Onset/Duration Of Symptoms: Days Ago Current Symptoms Are (Timing): Still Present Additional History Per: Patient Past Medical History Reviewed: Historical Data, Nursing Documentation, Vital Signs Vital Signs: Last Vital Signs Temp 98.2 F 10/17/17 09:58 Pulse 58 L 10/17/17 11:46 Resp 20 10/17/17 11:46 BP 148/75 10/17/17 11:46 Pulse Ox 97 10/17/17 12:40 - Medical History PMH: Asthma (Last attack 3 years ago), Cardia Arrhythmia (ATRIAL FIB.), Fractures (ORIF left ankle), HTN, Hypercholesterolemia, TIA (2 years ago) Denies: Chronic Kidney Disease Surgical History: Endoscopy - [facility] Procedures CORONAR ARTERIOGR-2 CATH (02/08/12) LEFT HEART CARDIAC CATH (02/08/12) RESECTION OF BILATERAL BREAST, OPEN APPROACH (09/26/17) RT & LT HEART ANGIOCARD (02/08/12) Family History: States: No Known Family Hx - Social History Hx Alcohol Use: No Hx Substance Use: No - Immunization History Hx Tetanus Toxoid Vaccination: No Hx Influenza Vaccination: Yes Hx Pneumococcal Vaccination: Yes Review Of Systems Except As Marked, All Systems Reviewed And Found Negative. Constitutional: Positive for: Other Skin: Positive for: Other ( bilateral incisions to the chest) Physical Exam - Physical Exam Appears: Non-toxic, No Acute Distress Skin: Warm, Dry Head: Atraumatic, Normacephalic Oral Mucosa: Moist Throat: Normal Neck: Supple Chest: No Deformity, Tenderness ( bilateral incisions to chest which are healing and tenderness middle aspect of the mastecomy in surgical site ), Other (no gross swelling and no erythema, incision yanes are clean and intact. Increased tenderness in middle of left incision tor, no gross dischage noted. ) Cardiovascular: Rhythm Regular Respiratory: Normal Breath Sounds Gastrointestinal/Abdominal: Normal Exam Back: Normal Inspection Extremity: Capillary Refill (2< sec.) Neurological/Psych: Oriented x3, Normal Speech, Normal Cognition ED Course And Treatment O2 Sat by Pulse Oximetry: 97 (RA) Progress Note: Upon assesssment wound check was done. Attempted to reach out to Dr. Miller who is on vaction no coverage available. Discussed with The ER Director Dr. roman, ER director and suggested to treat patient and have follow up. Will start keflex for possible beginning of chest wall infection and advised to reach Dr. Willson for immediate follow up. Patient to return to ER if symptom worsens or progresses. Disposition Counseled Patient/Family Regarding: Studies Performed, Diagnosis, Need For Followup, Rx Given - Disposition Referrals: Vincent Miller MD [Staff Provider] - Disposition: HOME/ ROUTINE Disposition Time: 11:35 Condition: STABLE Additional Instructions: follow up with Dr. Miller in 2 days call to make an appointment take medications as prescribed return to hospital if symptoms worsens or progress Prescriptions: Cephalexin [cephalexin] 500 mg PO QID #40 cap Instructions: Surgical Site Infections (ED) Forms: [facility] ([place]), General Discharge Instructions - Clinical Impression Clinical Impression: Local infection of wound, Visit for wound check - Scribe Statement The provider has reviewed the documentation as recorded by the Scribe Meka Blackwood
[2017-10-17 11:47] VITALS: BP 148/75; PULSE 58
== END 2017-10-17 11:47 | disposition home or self-care (01) ==
LOC: C.ER 09:49
DX: T81.4XXA Infection following a procedure, initial encounter (principal); E78.00 Pure hypercholesterolemia, unspecified; I10 Essential (primary) hypertension; I48.91 Unspecified atrial fibrillation; Z86.73 Personal history of transient ischemic attack (TIA), and cerebral infarction without residual deficits

== ENCOUNTER 2017-11-07 09:28 | Inpatient (IN) | payer MEDICARE, MEDICAID ==
[2017-11-07 09:29] VITALS: BMI 39.3
[2017-11-07] MEDS ORDERED: Sodium Chloride 0.9% 1,000 ML IV SCH (10:00)
--- NOTE | 2017-11-07 10:03 | C.PDOC ---
History Of Present Illness 72 y/o female with PMHx of Breast carcinoma presents to ED sent by Dr. Miller to OR for draining seroma on left breast. Patient had a breast biopsy in September where draining was noted, patient had antibiotics but draining continued and Dr. Miller now wants seroma to be drained. Patient denies any other complaints at this time. Time Seen by Provider: 11/07/17 09:43 Chief Complaint (Nursing): Medical Clearance History Per: Patient History/Exam Limitations: no limitations Onset/Duration Of Symptoms: Days Current Symptoms Are (Timing): Still Present Past Medical History Reviewed: Historical Data, Nursing Documentation, Vital Signs Vital Signs: Last Vital Signs Temp 98.4 F 11/07/17 09:32 Pulse 68 11/07/17 09:32 Resp 18 11/07/17 09:32 BP 171/74 H 11/07/17 09:32 Pulse Ox 97 11/07/17 12:33 - Medical History PMH: Asthma (Last attack 3 years ago), Cardia Arrhythmia (ATRIAL FIB.), Fractures (ORIF left ankle), HTN, Hypercholesterolemia, TIA (2 years ago) Surgical History: Endoscopy - [facility] Procedures CORONAR ARTERIOGR-2 CATH (02/08/12) LEFT HEART CARDIAC CATH (02/08/12) RESECTION OF BILATERAL BREAST, OPEN APPROACH (09/26/17) RT & LT HEART ANGIOCARD (02/08/12) Family History: States: No Known Family Hx - Social History Hx Alcohol Use: No Hx Substance Use: No - Immunization History Hx Tetanus Toxoid Vaccination: No Hx Influenza Vaccination: Yes Hx Pneumococcal Vaccination: Yes Review Of Systems Constitutional: Negative for: Fever, Chills Gastrointestinal: Negative for: Nausea, Vomiting Skin: Negative for: Rash Neurological: Negative for: Weakness, Numbness Physical Exam - Physical Exam Appears: Non-toxic, No Acute Distress Skin: Warm, Dry, No Rash Head: Atraumatic, Normacephalic Oral Mucosa: Moist Neck: Normal ROM, Supple Chest: Other (Left breast has dry dressing) Cardiovascular: Rhythm Regular Respiratory: Normal Breath Sounds, No Rales, No Rhonchi, No Wheezing Gastrointestinal/Abdominal: Soft, No Tenderness, No Guarding, No Rebound Back: No CVA Tenderness Extremity: Normal ROM, Capillary Refill (<2 seconds) Neurological/Psych: Oriented x3 ED Course And Treatment - Laboratory Results Result Diagrams: 11/07/17 10:41 11/07/17 10:41 Lab Interpretation: No Acute Changes ECG: Interpreted By Me ECG Rhythm: Sinus Rhythm Rate From EC O2 Sat by Pulse Oximetry: 97 (RA) Pulse Ox Interpretation: Normal - Radiology CXR: Interpreted by Me CXR Interpretation: Yes: No Acute Disease Progress Note: Treated with IVF NSS and NPO for OR Reassessment Condition: Unchanged - Physician Consult Information Physician Contacted: Vincent Miller Outcome Of Conversation: admit to OR Medical Decision Making Medical Decision Making: Plan: Preo op labs, Disposition Discussed With DrGeovanna: Vincent Miller Doctor Will See Patient In The: Hospital - Disposition Disposition: HOSPITALIZED Disposition Time: 10:30 Condition: STABLE - POA Present On Arrival: None - Clinical Impression Clinical Impression: Cellulitis of breast, Seroma after procedure, Breast cancer - PA / PRESS WASHER / Resident Statement MD/DO has reviewed & agrees with the documentation as recorded. - Scribe Statement The provider has reviewed the documentation as recorded by the Lisethibnito Sims All medical record entries made by the Lisethibnito were at my direction and personally dictated by me. I have reviewed the chart and agree that the record accurately reflects my personal performance of the history, physical exam, medical decision making, and the department course for this patient. I have also personally directed, reviewed, and agree with the discharge instructions and disposition. Decision To Admit - Pt Status Changed To: Hospital Disposition Of: SDS- Endo,OR,Cath,IR - . Bed Request Type: Same Day Surgery Admitting Physician: Vincent Miller Patient Diagnosis: Cellulitis of breast, Seroma after procedure, Breast cancer
[2017-11-07] MEDS ORDERED: Sodium Chloride 0.9% 1,000 ML ONE (10:11)
[2017-11-07 10:27] LABS: SQUAMOUS EPITHIAL 2 /hpf (0-5); URINE BACTERIA OCC (<OCC); URINE BILIRUBIN NEGATIVE (NEGATIVE); URINE BLOOD 2+ (NEGATIVE); URINE CLARITY Clear (Clear); URINE COLOR Yellow (YELLOW); URINE GLUCOSE (UA) NORMAL (Normal); URINE LEUKOCYTE ESTERASE 1+ Leu/uL (Negative); URINE NITRATE NEGATIVE (NEGATIVE); URINE PROTEIN NEGATIVE (NEGATIVE); URINE UROBILINOGEN NORMAL mg/dL (0.2-1.0)
[2017-11-07 10:46] LABS: BASO # 0.1 K/uL (0.0-0.2); BASO % 1.1 % (0.0-2.0); EOS # 0.1 K/uL (0.0-0.7); EOS % 0.8 % (0.0-4.0); HEMOGLOBIN 10.4 g/dL (11.0-16.0); LYMPH # 1.8 K/uL (1.0-4.3); LYMPH % 19.5 % (20.0-40.0); MEAN CELL VOLUME 87.2 fL (81.0-99.0); MEAN CORPUSCULAR HEMOGLOBIN 29.8 pg (27.0-31.0); MEAN CORPUSCULAR HGB CONC 34.2 g/dL (33.0-37.0); MEAN PLATELET VOLUME 9.3 fL (7.2-11.7); MONO # 0.8 K/uL (0.0-0.8); MONO % 9.2 % (0.0-10.0); NEUT # 6.4 K/uL (1.8-7.0); NEUT % 69.4 % (50.0-75.0); RBC 3.5 Mil/uL (3.80-5.20); WHITE BLOOD COUNT 9.2 K/uL (4.8-10.8)
[2017-11-07 10:58] LABS: ALB/GLOB RATIO 1.1 (1.0-2.1); ALBUMIN 3.9 g/dL (3.5-5.0); ALT/SGPT 13 U/L (9-52); AST/SGOT 18 U/L (14-36); BLOOD UREA NITROGEN 13 mg/dL (7-17); CALCIUM 8.9 mg/dl (8.6-10.4); GFR AFRICAN-AMERICAN > 60; GFR NON-AFRICAN AMERICAN > 60
--- NOTE | 2017-11-07 11:26 | RAD ---
HISTORY: SOB COMPARISON: Chest x-ray performed 08/16/17 TECHNIQUE: Chest PA and lateral FINDINGS: Examination limited by habitus. LUNGS: Biapical pleural thickening. No focal consolidation. Please note that chest x-ray has limited sensitivity for the detection of pulmonary masses. PLEURA: No significant pleural effusion identified. No definite pneumothorax . CARDIOVASCULAR: The cardiomediastinal silhouette appears within normal limits of size. OSSEOUS STRUCTURES: No acute osseous abnormality identified. VISUALIZED UPPER ABDOMEN: Unremarkable. OTHER FINDINGS: None. IMPRESSION: Biapical pleural thickening.
[2017-11-07] MEDS ORDERED: Bupivacaine HCl 0.25% PF (10 ml) Inj ONE ×2 (13:37→13:38)
[2017-11-07] MEDS ORDERED: ceFAZolin IV 2 gm in Dextrose 2 GM/50 ML BAG IVPB ONE (13:38)
[2017-11-07] MEDS ORDERED: Lidocaine 1% Inj (20ml) ONE (13:38)
[2017-11-07] MEDS ORDERED: Lactated Ringer's 1,000 ML IV ONE ×2 (14:06)
[2017-11-07] MEDS ORDERED: Propofol 10 mg/ml Inj (20 ML) ONE (14:32)
[2017-11-07] MEDS ORDERED: HYDROmorphone 0.5 mg/0.5 ml ISec IVP PRN (15:05)
[2017-11-07] MEDS ORDERED: ceFAZolin IV 1 gm in Dextrose 1 GM/50 ML BAG IVPB SCH (16:00)
[2017-11-07] MEDS: Dextrose 5%/0.45% NS 1,000 ML IV SCH (19:18)
[2017-11-07] MEDS: ceFAZolin IV 1 gm in Dextrose 1 GM/50 ML BAG IVPB SCH (21:59)
[2017-11-07] MEDS: Oxycodone/Acetaminophen 5/325 mg Tab PO PRN (22:05)
[2017-11-08 01:13] VITALS: RESP 20; TEMP 98.5
--- NOTE | 2017-11-08 01:28 | OP ---
PROCEDURE DATE: 11/07/2017 PREOPERATIVE DIAGNOSIS: Seroma over the left chest wall. POSTOPERATIVE DIAGNOSIS: Seroma over the left chest wall. PROCEDURE PERFORMED: Incision and drainage of seroma over the left chest wall. SURGEON: Vincent Miller MD. ANESTHESIA: General. ESTIMATED BLOOD LOSS: 20 mL. POSTOPERATIVE CONDITION: Stable. INDICATION FOR SURGERY: This is a 72-year-old female who is one month status post bilateral mastectomy. She has developed a seroma over the left chest wall, which appears to be becoming infected, and she is now admitted for drainage under anesthesia. DESCRIPTION OF PROCEDURE: The patient was taken to the operating room, general anesthesia was administered, and the left chest wall was prepped and draped. The area which was draining was opened using a clamp and a Bovie. Once it was adequately opened, the seroma was easily drained and cultured. It was irrigated with copious amounts of saline solution. Bleeding was controlled using the Bovie. A larger bleeder on chest wall was repaired. The wound was irrigated with saline and closed with skin clips. Patient tolerated the procedure well and returned to the recovery room in stable condition. Vincent Miller MD
[2017-11-08] MEDS: Dextrose 5%/0.45% NS 1,000 ML IV SCH ×2 (03:30→09:39)
[2017-11-08 06:50] LABS: BASO % 0.5 % (0.0-2.0); EOS # 0.1 K/uL (0.0-0.7); EOS % 1.9 % (0.0-4.0); HEMOGLOBIN 9.5 g/dL (11.0-16.0); LYMPH # 1.9 K/uL (1.0-4.3); LYMPH % 27.5 % (20.0-40.0); MEAN CELL VOLUME 87.6 fL (81.0-99.0); MEAN CORPUSCULAR HGB CONC 34.2 g/dL (33.0-37.0); MEAN PLATELET VOLUME 9.4 fL (7.2-11.7); MONO # 0.7 K/uL (0.0-0.8); MONO % 9.7 % (0.0-10.0); NEUT # 4.1 K/uL (1.8-7.0); NEUT % 60.4 % (50.0-75.0); RBC 3.16 Mil/uL (3.80-5.20); RED CELL DISTRIBUTION WIDTH 13.7 % (11.5-14.5); WHITE BLOOD COUNT 6.8 K/uL (4.8-10.8)
[2017-11-08] MEDS: ceFAZolin IV 1 gm in Dextrose 1 GM/50 ML BAG IVPB SCH ×2 (06:54→14:28)
[2017-11-08] MEDS: Oxycodone/Acetaminophen 5/325 mg Tab PO PRN (06:57)
[2017-11-08 07:01] LABS: BLOOD UREA NITROGEN 13 mg/dL (7-17); CALCIUM 8.7 mg/dl (8.6-10.4); GFR AFRICAN-AMERICAN > 60; GFR NON-AFRICAN AMERICAN > 60
[2017-11-08] MEDS ORDERED: Potassium Chloride 20 mEq ER Tab PO STA (07:16)
[2017-11-08] MEDS ORDERED: Fluticasone-Salmeterol 250-50mcg Diskus IH PRN (07:30)
[2017-11-08 08:23] VITALS: BP 158/68; PULSE 70; O2SAT 98
[2017-11-08] MEDS ORDERED: Pantoprazole 40 mg EC Tab PO SCH (10:00)
--- NOTE | 2017-11-08 10:16 | CP.PCM.CON ---
History of Present Illness - History of Present Illness History of Present Illness: Medicine consult note for Dr. Cresw: Patient is a 72 year old female with a PMH of Afib, asthma, HTN,, hyperlipidemia , TIA (2 years ago), and breast cancer which she is currently undergoing treatment with Dr. Abiel Cohn (heme/onc). Patient has bilateral mastectomy in September and developed a seroma post surgery. Yesterday this seroma was drained by Dr. Miller in the OR. Patient admits to slight pain at this area today which is controlled with medications. She denies fever/chills, headaches, changes in vision, N/V, abdominal pain, numbness/tinlging, leg edema, or calf tenderness. Past medical history: Afib, asthma, HTN,, hyperlipidemia, TIA (2 years ago), and breast cancer Past surgical history: lumpectomy, b/l mastectomy Family history: Sister with breast cancer 30s Allergies: Oral and IV contrast Medications: Simvastatin 10mg PO HS, Protonix 40mg PO daily, Endocet 10/325mg 1 tab PO Q6 hours prn, Lopressor 75mg PO BID, Losartan 50mg PO daily. Advair, Colace 100mg PO daily, Eliquis 5mg PO BID, Anastrozole 1mg PO daily, Ventolin HFA Social history: Denies tobacco, alcohol, and illicit drug use. PMD: Dr. Eleonora Aranda/onc: Dr. Cohn Review of Systems - Constitutional Constitutional: absent: Chills, Fever - EENT Eyes: absent: Blurred Vision, Change in Vision - Cardiovascular Cardiovascular: absent: Chest Pain, Chest Pain at Rest, Diaphoresis, Leg Edema, Palpitations, Syncope - Respiratory Respiratory: absent: Cough, Dyspnea - Gastrointestinal Gastrointestinal: absent: Abdominal Pain, Nausea, Vomiting - Genitourinary Genitourinary: absent: Change in Urinary Stream, Difficulty Urinating Past Patient History - Past Medical History & Family History Past Medical History?: Yes - Past Social History Smoking Status: Former Smoker - CARDIAC Hx Cardia Arrhythmia: Yes (ATRIAL FIB.) Hx Hypercholesterolemia: Yes Hx Hypertension: Yes - PULMONARY Hx Asthma: Yes (Last attack 3 years ago) - NEUROLOGICAL Hx Transient Ischemic Attacks (TIA): Yes (2 years ago) - HEENT Hx HEENT Problems: No Other/Comment: wears glasses - RENAL Hx Chronic Kidney Disease: No - ENDOCRINE/METABOLIC Hx Endocrine Disorders: No - HEMATOLOGICAL/ONCOLOGICAL Hx Blood Disorders: Yes Hx Cancer: Yes (R Breast CA on PO med) - INTEGUMENTARY Hx Dermatological Problems: Yes Other/Comment: left breast biopsy site with felipe in place - MUSCULOSKELETAL/RHEUMATOLOGICAL Hx Falls: Yes (3 weeks ago) Hx Fractures: Yes (ORIF left ankle) - GASTROINTESTINAL Hx Gastrointestinal Disorders: No - GENITOURINARY/GYNECOLOGICAL Hx Genitourinary Disorders: Yes (Urinary frequency) Other/Comment: HX: OVARIAN CYST AND FALLOPIAN TUBE REMOVED 49 YEARS AGO-PER NOTES. - PSYCHIATRIC Hx Substance Use: No - SURGICAL HISTORY Hx Surgeries: Yes Hx Breast Biopsy: Yes (bilateral) Hx Mastectomy: Yes (09/26/17 bilateral) Other/Comment: HX;removal ovarian cyst and fallopian tube 49 years ago. HX: Left breast lymphadectomy from breast CA. HX: AURY 08/17/17 - ANESTHESIA Hx Anesthesia: Yes Hx Anesthesia Reactions: No Hx Malignant Hyperthermia: No Has any member of the family had a problem w/ anesthesia?: No Meds Allergies/Adverse Reactions: Allergies Allergy/AdvReac Type Severity Reaction Status Date / Time Iodinated Contrast- Oral and Allergy Intermediate SHORTNESS Verified 10/17/17 09 :58 IV Dye OF BREATH [Iodinated Contrast Media - Oral and] - Medications Medications: Current Medications Anastrozole (Arimidex 1 Mg Tab) 1 mg PO DAILY [facility] Last Admin: 11/08/17 09:44 Dose: 1 mg Docusate Sodium (Colace) 100 mg PO BID [facility] Last Admin: 11/08/17 09:40 Dose: 100 mg Dextrose/Sodium Chloride (Dextrose 5%/0.45% Ns 1000 Ml) 1,000 mls @ 80 mls/hr IV .[id number] [facility] Last Admin: 11/08/17 09:39 Dose: 80 mls/hr Cefazolin Sodium/Dextrose (Ancef Iv 1 Gm Duplex) 1 gm in 50 mls @ 100 mls/hr IVPB Q8H [facility] Last Admin: 11/08/17 06:54 Dose: 100 mls/hr Losartan Potassium (Cozaar) 50 mg PO DAILY [facility] Last Admin: 11/08/17 09:41 Dose: 50 mg Metoprolol Tartrate (Lopressor) 75 mg PO BID [facility] Last Admin: 01/18/18 09:40 Dose: 75 mg Ondansetron HCl (Zofran Inj) 4 mg IVP Q6 PRN PRN Reason: Nausea/Vomiting Oxycodone/Acetaminophen (Percocet 5/325 Mg Tab) 1 tab PO Q4H PRN PRN Reason: pain Stop: 11/10/17 15:01 Last Admin: 11/08/17 06:57 Dose: 1 tab Pantoprazole Sodium (Protonix Ec Tab) 40 mg PO DAILY [facility] Last Admin: 11/08/17 09:40 Dose: 40 mg Rosuvastatin Calcium (Crestor) 5 mg PO HS [facility] Stop: 11/08/17 22:01 Last Admin: 11/07/17 22:04 Dose: 5 mg Fluticasone/Salmeterol (Advair Diskus 250/50) 1 puff IH RQ12 PRN PRN Reason: Shortness of Breath Physical Exam - Constitutional Appears: Non-toxic, No Acute Distress - Head Exam Head Exam: ATRAUMATIC, NORMAL INSPECTION - Eye Exam Eye Exam: EOMI - ENT Exam ENT Exam: Mucous Membranes Moist - Respiratory Exam Respiratory Exam: Clear to Auscultation Bilateral, NORMAL BREATHING PATTERN. absent: Respiratory Distress - Cardiovascular Exam Cardiovascular Exam: Irregular Rhythm, +S1, +S2. absent: Tachycardia, JVD Additional comments: Chest exam - s/p b/l mastectomy, drain in place, dressing c/d/i - GI/Abdominal Exam GI & Abdominal Exam: Normal Bowel Sounds, Soft. absent: Distended, Firm, Guarding, Tenderness - Extremities Exam Extremities exam: Positive for: normal inspection. Negative for: calf tenderness, pedal edema - Back Exam Back exam: NORMAL INSPECTION. absent: CVA tenderness (L), CVA tenderness (R), paraspinal tenderness - Neurological Exam Neurological exam: Alert, CN II-XII Intact, Normal Gait, Oriented x3 - Psychiatric Exam Psychiatric exam: Normal Affect, Normal Mood Results - Vital Signs Recent Vital Signs: Last Vital Signs Temp 98.5 F 11/08/17 08:21 Pulse 70 11/08/17 08:21 Resp 20 11/08/17 08:21 BP 158/68 H 11/08/17 09:40 Pulse Ox 98 11/08/17 08:21 - Labs Result Diagrams: 11/08/17 06:39 11/08/17 06:39 Labs: Laboratory Results - last 24 hr 11/07/17 11/07/17 11/07/17 10:11 10:41 10:41 WBC 9.2 RBC 3.50 L Hgb 10.4 L Hct 30.5 L MCV 87.2 MCH 29.8 MCHC 34.2 RDW 14.0 Plt Count 245 MPV 9.3 Neut % (Auto) 69.4 Lymph % (Auto) 19.5 L [place] % (Auto) 9.2 Eos % (Auto) 0.8 Baso % (Auto) 1.1 Neut # 6.4 Lymph # 1.8 [place] # 0.8 Eos # 0.1 Baso # 0.1 Sodium 136 Potassium 4.2 Chloride 101 Carbon Dioxide 25 Anion Gap 14 BUN 13 Creatinine 0.8 Est GFR ( Amer) > 60 Est GFR (Non-Af Amer) > 60 Random Glucose 98 Calcium 8.9 Total Bilirubin 0.8 AST 18 ALT 13 Alkaline Phosphatase 70 Total Protein 7.3 Albumin 3.9 Globulin 3.4 Albumin/Globulin Ratio 1.1 Urine Color Yellow Urine Clarity Clear Urine pH 6.0 Ur Specific [place] 1.012 Urine Protein Negative Urine Glucose (UA) Normal Urine Ketones Negative Urine Blood 2+ H Urine Nitrate Negative Urine Bilirubin Negative Urine Urobilinogen Normal Ur Leukocyte Esterase 1+ H Urine WBC (Auto) 12 H Urine RBC (Auto) 1 Ur Squamous Epith Cells 2 Urine Bacteria Occ H Blood Type Antibody Screen 11/07/17 11/08/17 11/08/17 10:41 06:39 06:39 WBC 6.8 RBC 3.16 L Hgb 9.5 L Hct 27.7 L MCV 87.6 MCH 30.0 MCHC 34.2 RDW 13.7 Plt Count 238 MPV 9.4 Neut % (Auto) 60.4 Lymph % (Auto) 27.5 [place] % (Auto) 9.7 Eos % (Auto) 1.9 Baso % (Auto) 0.5 Neut # 4.1 Lymph # 1.9 [place] # 0.7 Eos # 0.1 Baso # 0.0 Sodium 133 Potassium 3.5 L Chloride 101 Carbon Dioxide 26 Anion Gap 10 BUN 13 Creatinine 0.7 Est GFR ( Amer) > 60 Est GFR (Non-Af Amer) > 60 Random Glucose 108 H Calcium 8.7 Total Bilirubin AST ALT Alkaline Phosphatase Total Protein Albumin Globulin Albumin/Globulin Ratio Urine Color Urine Clarity Urine pH Ur Specific [place] Urine Protein Urine Glucose (UA) Urine Ketones Urine Blood Urine Nitrate Urine Bilirubin Urine Urobilinogen Ur Leukocyte Esterase Urine WBC (Auto) Urine RBC (Auto) Ur Squamous Epith Cells Urine Bacteria Blood Type O POSITIVE Antibody Screen Negative Assessment & Plan - Assessment and Plan (Free Text) Assessment: Breast seroma All Surgical and pain management per Dr. Miller Seroma drainage POD #1 pain controlled with medications Hypokalemia K 3.5 KCl 40 meq x 1 dose given today Atrial fibrillation Rate controlled. Patient is to resume Eliquis 5mg PO BID. Was held for one day preop Patient was taking Eliquis for the last two months only once a day. It was explained to the patient that she should be taking twice a day. Will given the patient a new script for Eliquis. Breast Cancer Anastrozole 1mg PO daily Continue to follow up with Dr. Cohn outpatient Hypertension Controlled Losartan 50mg PO daily Lopressor 75mg PO BID Hyperlipidemia Crestor 5mg PO HS Asthma Controlled Advair Albuterol treatments prn SOB Prophylactic Measures on Eliquis SCDS Protonix Colace 100mg PO BID Discussed with Dr. Crews. All medical management per Dr. Crews.
[2017-11-08] MEDS ORDERED: Albuterol 0.083% Inhal Sol (2.5 mg/3 mL) UD INH PRN (11:26)
--- NOTE | 2017-11-08 12:05 | CARD ---
APPROVED REPORT EKG Measurement Heart [id number] <Conclusion> Sinus rhythm with premature supraventricular complexes Nonspecific T wave abnormality Abnormal ECG
[2017-11-08] MEDS ORDERED: Fluticasone-Salmeterol 250-50mcg Diskus IH SCH (20:00)
--- NOTE | 2017-11-09 07:46 | CON ---
DATE: 11/08/2017 HISTORY OF PRESENT ILLNESS: Ms. Nunez was admitted to the hospital with chief complaint of seroma of the breast after breast cancer surgery. Patient has atrial fibrillation, degenerative arthritis. Patient needs Eliquis and Percocet. Patient is a nonsmoker. PHYSICAL EXAMINATION: GENERAL: Patient is awake, alert, and oriented. VITAL SIGNS: Temperature 98, pulse 90. HEENT: Within normal limits. NECK: Supple. CHEST: Symmetrical. HEART: Regular. BREASTS: There is a dressing on the breast with a drain. ABDOMEN: Soft. EXTREMITIES: No edema. ASSESSMENT AND PLAN: Patient suffered from seroma of the breast, status post mastectomy for breast cancer. Patient will restart Eliquis. Pain medication as needed. Marcell Crews MD
== END 2017-11-08 14:00 | disposition home or self-care (01) | DRG 921 ==
LOC: C.ER 09:28 → C.SDS 10:22 → C.9S 15:00 → C.3T 19:04
PROVIDERS: ADMIT Surgery; ATTEND Surgery
PROC: 0W980ZZ Drainage of Chest Wall, Open Approach (ICD-10-PCS; principal; 2017-11-07 15:15)
DX: L76.34 Postprocedural seroma of skin and subcutaneous tissue following other procedure (principal); I48.91 Unspecified atrial fibrillation; E87.6 Hypokalemia; Y83.9 Surgical procedure, unspecified as the cause of abnormal reaction of the patient, or of later complication, without mention of misadventure at the time of the procedure; I10 Essential (primary) hypertension; J45.909 Unspecified asthma, uncomplicated; M19.90 Unspecified osteoarthritis, unspecified site; N61.0 Mastitis without abscess; Z80.3 Family history of malignant neoplasm of breast; E78.00 Pure hypercholesterolemia, unspecified; E78.5 Hyperlipidemia, unspecified; Z90.13 Acquired absence of bilateral breasts and nipples; Z85.3 Personal history of malignant neoplasm of breast; Z86.73 Personal history of transient ischemic attack (TIA), and cerebral infarction without residual deficits; Z87.891 Personal history of nicotine dependence

== ENCOUNTER 2018-01-30 09:19 | Inpatient (IN) | payer MEDICARE, MEDICAID ==
[2018-01-25 09:36] VITALS: BMI 34.9
[2018-01-30 10:39] LABS: INR 1.1; PROTHROMBIN TIME 12.4 SECONDS (9.7-12.2)
[2018-01-30] MEDS ORDERED: Lactated Ringer's 1,000 ML IV ONE (12:50)
[2018-01-30] MEDS ORDERED: Propofol 10 mg/ml Inj (20 ML) ONE (12:57)
[2018-01-30] MEDS ORDERED: ceFAZolin 1 gm in NS 0 GM/0 ML BAG IVPB ONE (12:57)
[2018-01-30] MEDS ORDERED: Bupivacaine HCl 0.5% PF (30 ml) Inj ONE (12:57)
[2018-01-30] MEDS ORDERED: Midazolam 2 MG/2 ML VIAL ONE (12:57)
[2018-01-30] MEDS ORDERED: Lactated Ringer's 1,000 ML IV SCH (13:45)
[2018-01-30] MEDS: Magnesium Sulfate 1 gm in D5W 1 GM/100 ML BAG IVPB SCH ×2 (18:16→19:22)
[2018-01-30] MEDS ORDERED: Fluticasone-Salmeterol 250-50mcg Diskus IH PRN (22:04)
[2018-01-30] MEDS ORDERED: Albuterol HFA 90 mcg/actuation (8 g) IH PRN ×2 (22:04→23:33)
[2018-01-30 22:16] VITALS: RESP 20
--- NOTE | 2018-01-30 23:27 | OP ---
PROCEDURE DATE: 01/30/2018 PREOPERATIVE DIAGNOSIS: Metastatic lymph node at the right axilla. POSTOPERATIVE DIAGNOSIS: Metastatic lymph node at the right axilla. PROCEDURE PERFORMED: Attempted excision of metastatic lymph node at the right axilla. SURGEON: Vincent Miller MD ANESTHESIA: General. ESTIMATED BLOOD LOSS: Zero. POSTOPERATIVE CONDITION: Guarded. HISTORY OF PRESENT ILLNESS: This is a 72-year-old female who presented after bilateral mastectomy, found to have what appeared to be a metastatic lymph node on a CAT scan which was performed recently. She was scheduled of excavation at her right axilla and removal. DESCRIPTION OF PROCEDURE: The patient was taken to the operating room, placed on a monitor, found to be in rapid atrial flutter. She was given medications including sedatives and Esmolol, however, the rapid atrial flutter persisted. For this reason, the procedure was abandoned. The patient was reported to the recovery room. A cardiology consult was obtained, and she would be admitted to a monitored bed. Vincent Miller MD
[2018-01-31 07:58] LABS: BASO # 0.1 K/uL (0.0-0.2); BASO % 0.7 % (0.0-2.0); EOS # 0.2 K/uL (0.0-0.7); EOS % 2.6 % (0.0-4.0); HEMOGLOBIN 11.4 g/dL (11.0-16.0); LYMPH # 1.6 K/uL (1.0-4.3); LYMPH % 21.1 % (20.0-40.0); MEAN CELL VOLUME 86.3 fL (81.0-99.0); MEAN CORPUSCULAR HEMOGLOBIN 29.1 pg (27.0-31.0); MEAN CORPUSCULAR HGB CONC 33.7 g/dL (33.0-37.0); MEAN PLATELET VOLUME 9.6 fL (7.2-11.7); MONO # 0.4 K/uL (0.0-0.8); MONO % 5.8 % (0.0-10.0); NEUT # 5.2 K/uL (1.8-7.0); NEUT % 69.8 % (50.0-75.0); RBC 3.92 Mil/uL (3.80-5.20); RED CELL DISTRIBUTION WIDTH 15.5 % (11.5-14.5); WHITE BLOOD COUNT 7.4 K/uL (4.8-10.8)
[2018-01-31] MEDS ORDERED: EXEMESTANE 25 MG PO SCH ×2 (10:00)
[2018-01-31] MEDS ORDERED: Albuterol HFA 90 mcg/actuation (8 g) INH SCH (10:00)
[2018-01-31 10:15] LABS: BLOOD UREA NITROGEN 13 mg/dL (7-17); CALCIUM 9.2 mg/dl (8.6-10.4); GFR AFRICAN-AMERICAN > 60; GFR NON-AFRICAN AMERICAN > 60
[2018-01-31] MEDS: Pantoprazole 40 mg EC Tab PO SCH (10:22)
[2018-01-31] MEDS: Fluticasone-Salmeterol 250-50mcg Diskus IH SCH ×2 (10:54→20:10)
--- NOTE | 2018-01-31 13:36 | CP.PCM.PN ---
Subjective - Date & Time of Evaluation Date of Evaluation: 01/31/18 Time of Evaluation: 08:00 - Subjective Subjective: PGY 2 medicine progress note for Dr. Crews: Patient was seen and examined at bedside this morning. She denie chest pain or palpitatoins and stated that she feels fine. She reported that she is taking Xarelto but does not know why she is taking this medication. She was supposed to have cancer lymph node removal with Dr. Miller but was noted be in Afib/ Atrial flutter. The procedure was cancelled. Patient with a history of A fib but she does not know what this is. Past medical history: Afib, asthma, HTN,, hyperlipidemia, TIA (2 years ago), and breast cancer Past surgical history: lumpectomy, b/l mastectomy Family history: Sister with breast cancer 30s Allergies: Oral and IV contrast Medications: Simvastatin 10mg PO HS, Protonix 40mg PO daily, Endocet 10/325mg 1 tab PO Q6 hours prn, Lopressor 75mg PO BID, Losartan 50mg PO daily. Advair, Colace 100mg PO daily, Eliquis 5mg PO BID, Anastrozole 1mg PO daily, Ventolin HFA Social history: Denies tobacco, alcohol, and illicit drug use. PMD: Dr. Crews Heme/onc: Dr. Cohn Objective - Vital Signs/Intake and Output Vital Signs (last 24 hours): Temp Pulse Resp BP Pulse Ox 98.1 F 100 H 20 134/83 96 01/31/18 08:27 01/31/18 08:27 01/31/18 08:27 01/31/18 08:27 01/31/18 08:27 Intake and Output: 01/31/18 01/31/18 06:59 18:59 Intake Total 120 480 Balance 120 480 - Medications Medications: Current Medications Albuterol (Ventolin Hfa 90 Mcg/Actuation (8 G)) 2 puff IH RQ4 PRN PRN Reason: Shortness of Breath Diltiazem HCl (Cardizem) 30 mg PO QID [facility] Last Admin: 01/31/18 10:23 Dose: 30 mg Docusate Sodium (Colace) 100 mg PO BID [facility] Last Admin: 01/31/18 10:28 Dose: 100 mg Home Med (Exemestane [Exemestane]) 25 mg PO DAILY [facility] Last Admin: 01/31/18 10:30 Dose: Not Given Losartan Potassium (Cozaar) 50 mg PO DAILY [facility] Last Admin: 01/31/18 10:22 Dose: 50 mg Metoprolol Tartrate (Lopressor) 50 mg PO BID [facility] Last Admin: 01/31/18 10:22 Dose: 50 mg Montelukast Sodium (Singulair) 10 mg PO HS [facility] Last Admin: 01/30/18 22:28 Dose: 10 mg Oxybutynin Chloride (Ditropan Tab) 10 mg PO DAILY [facility] Last Admin: 01/31/18 10:23 Dose: 10 mg Oxycodone/Acetaminophen (Percocet 5/325 Mg Tab) 1 tab PO Q6 PRN PRN Reason: Pain, moderate (4-7) Pantoprazole Sodium (Protonix Ec Tab) 40 mg PO DAILY [facility] Last Admin: 01/31/18 10:22 Dose: 40 mg Rivaroxaban (Xarelto) 20 mg PO DAILY [facility] Last Admin: 01/31/18 10:23 Dose: 20 mg Rosuvastatin Calcium (Crestor) 10 mg PO HS [facility] Last Admin: 01/30/18 22:28 Dose: 10 mg Fluticasone/Salmeterol (Advair Diskus 250/50) 1 puff IH RQ12 [facility] Last Admin: 01/31/18 10:54 Dose: Not Given Zolpidem Tartrate (Ambien) 5 mg PO HS PRN PRN Reason: Insomnia Last Admin: 01/30/18 23:05 Dose: 5 mg - Labs Labs: 01/31/18 07:46 01/31/18 07:46 PT 12.4 SECONDS (9.7-12.2) H 01/30/18 10:26 INR 1.1 01/30/18 10:26 APTT 27 SECONDS (21-34) 01/30/18 10:26 - Constitutional Appears: Non-toxic, No Acute Distress - Head Exam Head Exam: ATRAUMATIC, NORMAL INSPECTION - Eye Exam Eye Exam: EOMI, PERRL Pupil Exam: NORMAL ACCOMODATION - ENT Exam ENT Exam: Mucous Membranes Moist - Respiratory Exam Respiratory Exam: Clear to Ausculation Bilateral, NORMAL BREATHING PATTERN. absent: Respiratory Distress - Cardiovascular Exam Cardiovascular Exam: Irregular Rhythm, +S1, +S2 - GI/Abdominal Exam GI & Abdominal Exam: Firm, Soft, Normal Bowel Sounds. absent: Distended, Guarding, Tenderness - Extremities Exam Extremities Exam: Normal Inspection - Back Exam Back Exam: NORMAL INSPECTION - Neurological Exam Neurological Exam: Alert, Awake, CN II-XII Intact, Oriented x3 Neuro motor strength exam: Right Lower Extremity: 11/22 - Psychiatric Exam Psychiatric exam: Normal Affect, Normal Mood - Skin Skin Exam: Dry, Intact, Normal Color, Warm Assessment and Plan - Assessment and Plan (Free Text) Assessment: Atrial fibrillation with A flutter at time. Patient is tachycardic Xarelto 20mg PO daily Cardiology consulted, Dr. Owens Breast Cancer Anastrozole 1mg PO daily [address] Cohn consulted, help appreciated Hypertension Controlled Losartan 50mg PO daily Lopressor 75mg PO BID Hyperlipidemia Crestor 5mg PO HS Asthma Controlled Advair Albuterol treatments prn SOB Singulair 10mg PO HS Insomnia Ambien 5mg PO HS Prophylactic Measures on Eliquis SCDS Protonix 40mg PO daily Colace 100mg PO BID Discussed with Dr. Crews. All medical management per Dr. Crews.
--- NOTE | 2018-01-31 14:37 | CP.PCM.CON ---
History of Present Illness - History of Present Illness History of Present Illness: ASKED TO SEE PT BY DR [facility] 72 y/o female noted to have rapid a flutter prior to undergoing mass resection from right breast tissue. Surgery was held off and pt transfered to tele unit. pt denies hx of svt. She denies palp, lh, dizziness, cp, cough, fever, chills. pt states that she felt sob yesterday after waking up, before leaving for hospital. sob was sudden in onset. she thought her symptoms were due to asthma. she denies isabelle, le pain, erythema. additionally pt was on low dose eliquis at home for dvt prophylaxis. originally pts hr was 150, she was given iv verapamil with improvement in hr. started on oral cardizem. today her hr is ranging between 80-120. prior echo shows mild LAE. Review of Systems - Constitutional Constitutional: As Per HPI. absent: Anorexia, Chills, Daytime Sleepiness, Excessive Sweating, Fatigue, Fever, Frequent Falls, Headache, Increased Appetite , Lethargy, Malaise, Night Sweats, Snoring, Sleep Apnea, Weight Gain, Weight Loss, Weakness, Other - EENT Eyes: As Per HPI. absent: Blind Spots, Blurred Vision, Change in Vision, Decreased Night Vision, Diplopia, Discharge, Dry Eye, Exophthalmos, Floaters, Irritation, Itchy Eyes, Loss of Peripheral Vision, Pain, Photophobia, Requires Corrective Lenses, Sees Flashes, Spots in Vision, Tunnel Vision, Other Visual Disturbances, Loss of Vision, Other Ears: As Per HPI. absent: Decreased Hearing, Ear Discharge, Ear Pain, Tinnitus , Abnormal Hearing, Disequilibrium, Dizziness, Other Nose/Mouth/Throat: As Per HPI. absent: Epistaxis, Nasal Congestion, Nasal Discharge, Nasal Obstruction, Nasal Trauma, Nose Pain, Post Nasal Drip, Sinus Pain, Sinus Pressure, Bleeding Gums, Change in Voice, Dental Pain, Dry Mouth, Dysphagia, Halitosis, Hoarsness, Lip Swelling, Mouth Lesions, Mouth Pain, Odynophagia, Sore Throat, Throat Swelling, Tongue Swelling, Facial Pain, Neck Pain, Neck Mass, Other - Breasts Breasts: As Per HPI. absent: Change in Shape, Mass, Pain, Nipple Discharge, Nipple Inversion, Skin Changes, Swelling, Other - Cardiovascular Cardiovascular: As Per HPI, Dyspnea, Rapid Heart Rate. absent: Acrocyanosis, Chest Pain, Chest Pain at Rest, Chest Pain with Activity, Claudication, Diaphoresis, Dyspnea on Exertion, Edema, Irregular Heart Rhythm, Pain Radiating to Arm/Neck/Jaw, Leg Edema, Leg Ulcers, Lightheadedness, Orthopnea, Palpitations , Paroxysmal Nocturnal Dyspnea, Pedal Edema, Radiating Pain, Slow Heart Rate, Syncope, Other - Respiratory Respiratory: As Per HPI, Wheezing. absent: Cough, Dyspnea, Hemoptysis, Dyspnea on Exertion, Snoring, Stridor, Pain on Inspiration, Chest Congestion, Excessive Mucous Production, Change in Mucous Color, Pain with Coughing, Other - Gastrointestinal Gastrointestinal: As Per HPI. absent: Abdominal Pain, Belching, Bloating, Change in Bowel Habits, Change in Stool Character, Coffee Ground Emesis, Constipation, Cramping, Diarrhea, Dyspepsia, Dysphagia, Early Satiety, Excessive Flatus, Fecal Incontinence, Heartburn, Hematemesis, Hematochezia, Loose Stools, Melena, Nausea, Odynophagia, Temesmus, Vomiting, Other - Genitourinary Genitourinary: As Per HPI. absent: Change in Urinary Stream, Difficulty Urinating, Dysuria, Flank Pain, Hematuria, Pyuria, Nocturia, Urinary Incontinence, Urinary Frequency, Urinary Hesitance, Urinary Urgency, Voiding Freq/Small Amts, Freq UTI, Hx Renal/Bladder Calculi, Hx /Renal Surgery, Bladder Distension, Other - Reproductive: Female Reproductive:Female: As Per HPI. absent: Amenorrhea, Amenorrhea/ Control, Currently Menstual, Cycle <21 Days, Cycle >35 Days, Cycle Variable, Menses 1-7 Days, Menses >/= 8 Days, Menses Variable, Cycle > 4 Weeks Between, No Menses for 6 Months, Heavy Menses, Light Menses, Normal Menses, Spotting Between Cycles , S/P Hysterectomy, Menopausal, Post Menopausal, Premenarche, Abnormal Vaginal Bleeding, Dysmenorrhea, Dyspareunia, Genital Lesions, Genital Pruritis, Pelvic Pain, Prolapse Symptoms, Sexual Dysfunction, Vaginal Discharge, Vaginal Dryness , Vaginal Odor, Vaginal Pruritis, Other - Menstruation Menstruation: As Per HPI. absent: Amenorrhea, Amenorrhea/ Control, Currently Menstual, Cycle <21 Days, Cycle >35 Days, Cycle Variable, Menses 1-7 Days, Menses >/= 8 Days, Menses Variable, Cycle > 4 Weeks Between, No Menses for 6 Months, Heavy Menses, Light Menses, Normal Menses, Spotting Between Cycles , S/P Hysterectomy, Menopausal, Post Menopausal, Premenarche, Abnormal Vaginal Bleeding, Dysmenorrhea, Other - Integumentary Integumentary: As Per HPI. absent: Acne, Alopecia, Bleeding Lesions, Change in Hair, Change in Nails, Change in Pigmentation, Changing Lesions, Dry Skin, Erythema, Furuncle, Hirsutism, Lesions, New Lesions, Non-Healing Lesions, Photosensitivity, Pruritus, Rash, Skin Pain, Skin Ulcer, Sores, Striae, Swelling , Unusual Bruising, Wounds, Jaundice, Other - Neurological Neurological: As Per HPI. absent: Abnormal Gait, Abnormal Hearing, Abnormal Movements, Abnormal Speech, Behavioral Changes, Burning Sensations, Confusion, Convulsions, Disequilibrium, Dizziness, Numbness, Focal Weakness, Frequent Falls , Headaches, Lack of Coordination, Loss of Vision, Memory Loss, Paresthesias, Radicular Pain, Sensory Deficit, Syncope, Tingling, Tremor, Vertigo, Weakness, Other Visual Disturbances, Other - Psychiatric Psychiatric: As Per HPI. absent: Abnormal Sleep Pattern, Anhedonia, Anxiety, Auditory Hallucinations, Behavioral Changes, Change in Appetite, Change in Libido, Confusion, Depression, Difficulty Concentrating, Hallucinations, Homicidal Ideation, Hopelessness, Irritability, Memory Loss, Mood Swings, Panic Attacks, Paranoia, Suicidal Ideation, Visual Hallucinations, Tactile Hallucinations, Other - Endocrine Endocrine: As Per HPI. absent: Change in Body Appearance, Change in Libido, Cold Intolorance, Deepening of Voice, Excessive Sweating, Fatigue, Flushing, Heat Intolorance, Increase in Ring/Shoe/Hat Size, Palpitations, Polydipsia, Polyphagia, Polyuria, Other - Hematologic/Lymphatic Hematologic: As Per HPI. absent: Easy Bleeding, Easy Bruising, Lymphadenopathy , Other Past Patient History - Past Medical History & Family History Past Medical History?: Yes - Past Social History Smoking Status: Never Smoked Chewing Tobacco Use: No Cigar Use: No Alcohol: None Drugs: Denies Home Situation {Lives}: With Family Domestic Violence: Negative - CARDIAC Hx Cardiac Disorders: Yes Hx Cardia Arrhythmia: Yes (ATRIAL FIB.) Hx Hypercholesterolemia: Yes Hx Hypertension: Yes - PULMONARY Hx Respiratory Disorders: Yes Hx Asthma: Yes (Last attack 3 years ago) - NEUROLOGICAL Hx Neurological Disorder: Yes Hx Transient Ischemic Attacks (TIA): Yes (2 years ago) - HEENT Hx HEENT Problems: No Other/Comment: wears glasses - RENAL Hx Chronic Kidney Disease: No - ENDOCRINE/METABOLIC Hx Endocrine Disorders: No - HEMATOLOGICAL/ONCOLOGICAL Hx Blood Disorders: Yes Hx Blood Transfusions: No Hx Cancer: Yes (R Breast CA on PO med) - INTEGUMENTARY Hx Dermatological Problems: Yes Other/Comment: left breast biopsy site with felipe in place - MUSCULOSKELETAL/RHEUMATOLOGICAL Hx Falls: No - GASTROINTESTINAL Hx Gastrointestinal Disorders: No - GENITOURINARY/GYNECOLOGICAL Hx Genitourinary Disorders: Yes (Urinary frequency) Other/Comment: HX: OVARIAN CYST AND FALLOPIAN TUBE REMOVED 49 YEARS AGO-PER NOTES. - PSYCHIATRIC Hx Substance Use: No - SURGICAL HISTORY Hx Surgeries: Yes Hx Breast Biopsy: Yes (bilateral) Hx Cardiac Catheterization: Yes Hx Mastectomy: Yes (09/26/17 bilateral) Hx Orthopedic Surgery: Yes Other/Comment: HX;removal ovarian cyst and fallopian tube 49 years ago. HX: Left breast lymphadectomy from breast CA. HX: AURY 08/17/17 - ANESTHESIA Hx Anesthesia: Yes Hx Anesthesia Reactions: No Hx Malignant Hyperthermia: No Has any member of the family had a problem w/ anesthesia?: No Meds Allergies/Adverse Reactions: Allergies Allergy/AdvReac Type Severity Reaction Status Date / Time Iodinated Contrast- Oral and Allergy Intermediate SHORTNESS Verified 10/17/17 09 :58 IV Dye OF BREATH [Iodinated Contrast Media - Oral and] - Medications Medications: Current Medications Albuterol (Ventolin Hfa 90 Mcg/Actuation (8 G)) 2 puff IH RQ4 PRN PRN Reason: Shortness of Breath Apixaban (Eliquis) 5 mg PO Q12 [facility] Docusate Sodium (Colace) 100 mg PO BID [facility] Last Admin: 01/31/18 10:28 Dose: 100 mg Home Med (Exemestane [Exemestane]) 25 mg PO DAILY [facility] Last Admin: 01/31/18 10:30 Dose: Not Given Losartan Potassium (Cozaar) 50 mg PO DAILY [facility] Last Admin: 01/31/18 10:22 Dose: 50 mg Metoprolol Tartrate (Lopressor) 50 mg PO BID [facility] Last Admin: 01/31/18 10:22 Dose: 50 mg Montelukast Sodium (Singulair) 10 mg PO HS [facility] Last Admin: 01/30/18 22:28 Dose: 10 mg Oxybutynin Chloride (Ditropan Tab) 10 mg PO DAILY [facility] Last Admin: 01/31/18 10:23 Dose: 10 mg Oxycodone/Acetaminophen (Percocet 5/325 Mg Tab) 1 tab PO Q6 PRN PRN Reason: Pain, moderate (4-7) Pantoprazole Sodium (Protonix Ec Tab) 40 mg PO DAILY [facility] Last Admin: 01/31/18 10:22 Dose: 40 mg Rosuvastatin Calcium (Crestor) 10 mg PO HS [facility] Last Admin: 01/30/18 22:28 Dose: 10 mg Fluticasone/Salmeterol (Advair Diskus 250/50) 1 puff IH RQ12 [facility] Last Admin: 01/31/18 10:54 Dose: Not Given Verapamil HCl (Calan Tab) 40 mg PO Q8 [facility] Verapamil HCl (Verapamil Inj) 5 mg IVP ONCE ONE Stop: 01/31/18 14:26 Zolpidem Tartrate (Ambien) 5 mg PO HS PRN PRN Reason: Insomnia Last Admin: 01/30/18 23:05 Dose: 5 mg Physical Exam - Constitutional Appears: Well - Head Exam Head Exam: ATRAUMATIC, NORMAL INSPECTION, NORMOCEPHALIC - Eye Exam Eye Exam: EOMI, Normal appearance, PERRL. absent: Conjunctival injection, Nystagmus, Periorbital swelling, Periorbital tenderness, Scleral icterus Pupil Exam: NORMAL ACCOMODATION, PERRL. absent: Fixed, Irregular, Miosis, Mydriatic, Unequal - ENT Exam ENT Exam: Mucous Membranes Moist, Normal Exam. absent: Mucous Membranes Dry, Normal External Ear Exam, Normal Oropharynx, TM's Normal Bilaterally - Neck Exam Neck exam: Positive for: Normal Inspection. Negative for: Full Rom, Lymphadenopathy, Meningismus, Tenderness, Thyromegaly - Respiratory Exam Respiratory Exam: Wheezes, NORMAL BREATHING PATTERN. absent: Accessory Muscle Use, Chest Wall Tenderness, Decreased Breath Sounds, Clear to Auscultation Bilateral, Prolonged Expiratory Phase, Rales, Rhonchi, Respiratory Distress, Stridor - Cardiovascular Exam Cardiovascular Exam: Tachycardia, Irregular Rhythm, +S1, +S2, Systolic Murmur. absent: Bradycardia, Clicks, Diastolic murmur, Gallop, REGULAR RHYTHM, JVD, RRR , Rubs, +S4 - GI/Abdominal Exam GI & Abdominal Exam: Normal Bowel Sounds, Soft. absent: Bruit, Diminished Bowel Sounds, Distended, Firm, Guarding, Hernia, Hyperactive Bowel Sounds, Hypoactive Bowel Sounds, Mass, Organomegaly, Pulsatile Mass, Rebound, Rigid, Tenderness - Rectal Exam Rectal Exam: Deferred - Extremities Exam Extremities exam: Positive for: normal inspection. Negative for: calf tenderness, full ROM, joint swelling, normal capillary refill, pedal edema, tenderness, pedal pulses present - Back Exam Back exam: NORMAL INSPECTION. absent: CVA tenderness (L), CVA tenderness (R), FULL ROM, muscle spasm, paraspinal tenderness, rash noted, tenderness, vertebral tenderness - Neurological Exam Neurological exam: Alert, CN II-XII Intact, Normal Gait, Oriented x3, Reflexes Normal - Psychiatric Exam Psychiatric exam: Normal Affect, Normal Mood - Skin Skin Exam: Dry, Intact, Normal Color, Warm Results - Vital Signs Recent Vital Signs: Last Vital Signs Temp 98.1 F 01/31/18 08:27 Pulse 100 H 01/31/18 08:27 Resp 20 01/31/18 08:27 BP 134/83 01/31/18 08:27 Pulse Ox 96 01/31/18 08:27 - Labs Result Diagrams: 01/31/18 07:46 01/31/18 07:46 Labs: Laboratory Results - last 24 hr 01/31/18 01/31/18 01/31/18 07:46 07:46 07:46 WBC 7.4 RBC 3.92 Hgb 11.4 Hct 33.8 L MCV 86.3 MCH 29.1 MCHC 33.7 RDW 15.5 H Plt Count 216 MPV 9.6 Neut % (Auto) 69.8 Lymph % (Auto) 21.1 Granite % (Auto) 5.8 Eos % (Auto) 2.6 Baso % (Auto) 0.7 Neut # (Auto) 5.2 Lymph # (Auto) 1.6 Granite # (Auto) 0.4 Eos # (Auto) 0.2 Baso # (Auto) 0.1 D-Dimer, Quantitative 366 H Sodium 143 Potassium 4.1 Chloride 107 Carbon Dioxide 22 Anion Gap 19 BUN 13 Creatinine 0.9 Est GFR ( Amer) > 60 Est GFR (Non-Af Amer) > 60 Random Glucose 90 Calcium 9.2 Magnesium 2.4 H - EKG Data EKG Interpreted by: Myself Rate: Tachycardia Assessment & Plan (1) Flutter-fibrillation Status: Acute (2) HTN (hypertension) Status: Acute (3) Dyslipidemia (high LDL; low HDL) Status: Acute (4) LAE (left atrial enlargement) Status: Acute (5) Breast cancer Status: Acute - Assessment and Plan (Free Text) Plan: REPEAT ECHO LE DOPPLERS TO R/O THROMBUS CONT BB'S VERAPIMIL INSTEAD OF CARDIZEM CHANGE TO ELIQUIS XARELTO INTERACTS WITH VERAPIMIL ONCE RATE CONTROLLED AND DVT RULED OUT PT MAY PROCEED TO OR. NOTE PT DEVELOPED AFIB POST INITIAL SURGERY.
[2018-01-31] MEDS: Oxycodone/Acetaminophen 5/325 mg Tab PO PRN (16:11)
[2018-01-31 17:03] LABS: ALB/GLOB RATIO 1.1 (1.0-2.1); ALBUMIN 3.9 g/dL (3.5-5.0); ALT/SGPT 14 U/L (9-52); AST/SGOT 14 U/L (14-36); BLOOD UREA NITROGEN 13 mg/dL (7-17); CALCIUM 8.9 mg/dl (8.6-10.4); GFR AFRICAN-AMERICAN > 60; GFR NON-AFRICAN AMERICAN > 60
[2018-01-31 17:35] LABS: T3 1.54 nmol/L (1.49-2.60)
[2018-01-31] MEDS: guaiFENesin 100 mg/5 ml Syrup UD PO PRN (18:27)
--- NOTE | 2018-02-01 01:47 | CP.PCM.CON ---
History of Present Illness - History of Present Illness History of Present Illness: 72 year old female with a history of right breast cancer (ER/MD pos, HER2 neg) s /p mastectomy with LN dissection and left sided prophylactic mastectomy, with right sided axillary lymphadenopathy, complicated by afib. The patient had an intermediate risk oncotype dx and declined adjuvant chemotherapy. She was started on an aromatase inhibitor. In December, she was found to have right axillary lymphadenopathy and uptake by PET CT. She was to have axillary resection for evaluation of breast cancer recurrence but developed Afib and had her procedure discontinued. Past medical history: Breast cancer Past surgical history: B/L mastectomy Family history: Denies hematologic and oncologic problems Social history: Denies tobacco, alcohol, and illicit drug use. Allergies: Iodine contrast Review of systems: All remaining review of systems including HEENT, cardiovascular, respiratory, gastrointestinal, genitourinary, musculoskeletal, dermatologic, neurologic, and psychiatric are negative unless mentioned in the HPI. Past Patient History - Past Medical History & Family History Past Medical History?: Yes - Past Social History Smoking Status: Never Smoked Chewing Tobacco Use: No Cigar Use: No Alcohol: None Drugs: Denies Home Situation {Lives}: With Family Domestic Violence: Negative - CARDIAC Hx Cardiac Disorders: Yes Hx Cardia Arrhythmia: Yes (ATRIAL FIB.) Hx Hypercholesterolemia: Yes Hx Hypertension: Yes - PULMONARY Hx Respiratory Disorders: Yes Hx Asthma: Yes (Last attack 3 years ago) - NEUROLOGICAL Hx Neurological Disorder: Yes Hx Transient Ischemic Attacks (TIA): Yes (2 years ago) - HEENT Hx HEENT Problems: No Other/Comment: wears glasses - RENAL Hx Chronic Kidney Disease: No - ENDOCRINE/METABOLIC Hx Endocrine Disorders: No - HEMATOLOGICAL/ONCOLOGICAL Hx Blood Disorders: Yes Hx Blood Transfusions: No Hx Cancer: Yes (R Breast CA on PO med) - INTEGUMENTARY Hx Dermatological Problems: Yes Other/Comment: left breast biopsy site with felipe in place - MUSCULOSKELETAL/RHEUMATOLOGICAL Hx Falls: No - GASTROINTESTINAL Hx Gastrointestinal Disorders: No - GENITOURINARY/GYNECOLOGICAL Hx Genitourinary Disorders: Yes (Urinary frequency) Other/Comment: HX: OVARIAN CYST AND FALLOPIAN TUBE REMOVED 49 YEARS AGO-PER NOTES. - PSYCHIATRIC Hx Substance Use: No - SURGICAL HISTORY Hx Surgeries: Yes Hx Breast Biopsy: Yes (bilateral) Hx Cardiac Catheterization: Yes Hx Mastectomy: Yes (09/26/17 bilateral) Hx Orthopedic Surgery: Yes Other/Comment: HX;removal ovarian cyst and fallopian tube 49 years ago. HX: Left breast lymphadectomy from breast CA. HX: AURY 08/17/17 - ANESTHESIA Hx Anesthesia: Yes Hx Anesthesia Reactions: No Hx Malignant Hyperthermia: No Has any member of the family had a problem w/ anesthesia?: No Meds Allergies/Adverse Reactions: Allergies Allergy/AdvReac Type Severity Reaction Status Date / Time Iodinated Contrast- Oral and Allergy Intermediate SHORTNESS Verified 10/17/17 09 :58 IV Dye OF BREATH [Iodinated Contrast Media - Oral and] - Medications Medications: Current Medications Albuterol (Ventolin Hfa 90 Mcg/Actuation (8 G)) 2 puff IH RQ4 PRN PRN Reason: Shortness of Breath Apixaban (Eliquis) 5 mg PO Q12 [facility] Docusate Sodium (Colace) 100 mg PO BID [facility] Last Admin: 01/31/18 18:26 Dose: 100 mg Guaifenesin (Robitussin) 100 mg PO Q4H PRN PRN Reason: Cough Last Admin: 01/31/18 18:27 Dose: 100 mg Home Med (Exemestane [Exemestane]) 25 mg PO DAILY [facility] Losartan Potassium (Cozaar) 50 mg PO DAILY [facility] Metoprolol Tartrate (Lopressor) 50 mg PO BID [facility] Last Admin: 01/31/18 18:27 Dose: 50 mg Montelukast Sodium (Singulair) 10 mg PO HS [facility] Last Admin: 01/31/18 21:18 Dose: 10 mg Oxybutynin Chloride (Ditropan Tab) 10 mg PO DAILY [facility] Last Admin: 01/31/18 10:23 Dose: 10 mg Oxycodone/Acetaminophen (Percocet 5/325 Mg Tab) 1 tab PO Q6 PRN PRN Reason: Pain, moderate (4-7) Last Admin: 01/31/18 16:11 Dose: 1 tab Pantoprazole Sodium (Protonix Ec Tab) 40 mg PO DAILY [facility] Last Admin: 01/31/18 10:22 Dose: 40 mg Rosuvastatin Calcium (Crestor) 10 mg PO HS [facility] Last Admin: 01/31/18 21:18 Dose: 10 mg Fluticasone/Salmeterol (Advair Diskus 250/50) 1 puff IH RQ12 [facility] Last Admin: 04/12/18 20:10 Dose: 1 puff Verapamil HCl (Calan Tab) 40 mg PO Q8 [facility] Last Admin: 01/31/18 21:18 Dose: 40 mg Zolpidem Tartrate (Ambien) 5 mg PO HS PRN PRN Reason: Insomnia Last Admin: 01/31/18 22:08 Dose: 5 mg Physical Exam - Head Exam Head Exam: ATRAUMATIC - Eye Exam Eye Exam: Normal appearance - ENT Exam ENT Exam: Mucous Membranes Dry - Respiratory Exam Respiratory Exam: NORMAL BREATHING PATTERN - Cardiovascular Exam Cardiovascular Exam: +S1, +S2 - GI/Abdominal Exam GI & Abdominal Exam: Normal Bowel Sounds Results - Vital Signs Recent Vital Signs: Last Vital Signs Temp 98 F 01/31/18 23:00 Pulse 90 01/31/18 23:00 Resp 20 01/31/18 23:00 BP 91/51 L 01/31/18 23:00 Pulse Ox 96 01/31/18 23:00 - Labs Result Diagrams: 01/31/18 07:46 01/31/18 16:36 Labs: Laboratory Results - last 24 hr 01/31/18 01/31/18 01/31/18 07:46 07:46 07:46 WBC 7.4 RBC 3.92 Hgb 11.4 Hct 33.8 L MCV 86.3 MCH 29.1 MCHC 33.7 RDW 15.5 H Plt Count 216 MPV 9.6 Neut % (Auto) 69.8 Lymph % (Auto) 21.1 Coke % (Auto) 5.8 Eos % (Auto) 2.6 Baso % (Auto) 0.7 Neut # (Auto) 5.2 Lymph # (Auto) 1.6 Coke # (Auto) 0.4 Eos # (Auto) 0.2 Baso # (Auto) 0.1 D-Dimer, Quantitative 366 H Sodium 143 Potassium 4.1 Chloride 107 Carbon Dioxide 22 Anion Gap 19 BUN 13 Creatinine 0.9 Est GFR ( Amer) > 60 Est GFR (Non-Af Amer) > 60 POC Glucose (mg/dL) Random Glucose 90 Calcium 9.2 Magnesium 2.4 H Total Bilirubin AST ALT Alkaline Phosphatase Total Protein Albumin Globulin Albumin/Globulin Ratio Free T4 Total T3 TSH 3rd Generation 01/31/18 01/31/18 01/31/18 16:22 16:36 16:36 WBC RBC Hgb Hct MCV MCH MCHC RDW Plt Count MPV Neut % (Auto) Lymph % (Auto) Coke % (Auto) Eos % (Auto) Baso % (Auto) Neut # (Auto) Lymph # (Auto) Coke # (Auto) Eos # (Auto) Baso # (Auto) D-Dimer, Quantitative Sodium 142 Potassium 4.4 Chloride 106 Carbon Dioxide 23 Anion Gap 17 BUN 13 Creatinine 0.9 Est GFR ( Amer) > 60 Est GFR (Non-Af Amer) > 60 POC Glucose (mg/dL) 83 Random Glucose 93 Calcium 8.9 Magnesium Total Bilirubin 0.9 AST 14 D ALT 14 Alkaline Phosphatase 70 Total Protein 7.5 Albumin 3.9 Globulin 3.6 Albumin/Globulin Ratio 1.1 Free T4 0.93 Total T3 1.54 TSH 3rd Generation 2.26 01/31/18 21:03 WBC RBC Hgb Hct MCV MCH MCHC RDW Plt Count MPV Neut % (Auto) Lymph % (Auto) Coke % (Auto) Eos % (Auto) Baso % (Auto) Neut # (Auto) Lymph # (Auto) Coke # (Auto) Eos # (Auto) Baso # (Auto) D-Dimer, Quantitative Sodium Potassium Chloride Carbon Dioxide Anion Gap BUN Creatinine Est GFR ( Amer) Est GFR (Non-Af Amer) POC Glucose (mg/dL) 113 H Random Glucose Calcium Magnesium Total Bilirubin AST ALT Alkaline Phosphatase Total Protein Albumin Globulin Albumin/Globulin Ratio Free T4 Total T3 TSH 3rd Generation Assessment & Plan (1) Axillary adenopathy Assessment and Plan: suspicious for breast cancer recurrence lymph node resection canceled due to Afib outpatient reattempt once cleared by cardiology Status: Acute (2) Breast cancer Assessment and Plan: on aromatase inhibitor outpatient axillary LN resection Thank you for this interesting consult. Status: Acute
[2018-02-01] MEDS: guaiFENesin 100 mg/5 ml Syrup UD PO PRN ×2 (06:16→11:52)
[2018-02-01 07:29] LABS: BASO # 0.1 K/uL (0.0-0.2); EOS # 0.2 K/uL (0.0-0.7); EOS % 3.2 % (0.0-4.0); HEMOGLOBIN 11.2 g/dL (11.0-16.0); LYMPH # 1.8 K/uL (1.0-4.3); LYMPH % 23.5 % (20.0-40.0); MEAN CORPUSCULAR HGB CONC 33.7 g/dL (33.0-37.0); MEAN PLATELET VOLUME 9.3 fL (7.2-11.7); MONO # 0.5 K/uL (0.0-0.8); MONO % 6.9 % (0.0-10.0); NEUT # 4.9 K/uL (1.8-7.0); NEUT % 65.4 % (50.0-75.0); RBC 3.86 Mil/uL (3.80-5.20); RED CELL DISTRIBUTION WIDTH 15.7 % (11.5-14.5); WHITE BLOOD COUNT 7.5 K/uL (4.8-10.8)
[2018-02-01] MEDS: Fluticasone-Salmeterol 250-50mcg Diskus IH SCH ×2 (07:45→19:52)
[2018-02-01] MEDS: Pantoprazole 40 mg EC Tab PO SCH (09:48)
[2018-02-01] MEDS ORDERED: Pneumococcal 23-Valent Vaccine IM ONE (10:00)
[2018-02-01] MEDS: EXEMESTANE 25 MG PO SCH (11:48)
--- NOTE | 2018-02-01 12:09 | VASCLAB ---
PROCEDURE: Lower Extremity Venous Duplex Exam. HISTORY: d dimer and cancer and aflutter PRIORS: None. TECHNIQUE: Bilateral common femoral, femoral, popliteal and posterior tibial, peroneal and great saphenous veins were evaluated. Flow was assessed with color Doppler, compressibility, assessment of phasic flow and augmentation response. Report prepared by Stephane Wright, CLARA, RVT FINDINGS: RIGHT: 1. Common Femoral Vein: 1.1. Compressibility - Fully compressible: Thrombus - None : Flow - Phasic: Augmentation -Normal: Reflux - None. 2. Femoral Vein: 2.1. Compressibility - Fully compressible: Thrombus - None : Flow - Phasic: Augmentation -Normal: Reflux - None. 3. Popliteal Vein: 3.1. Compressibility - Fully compressible: Thrombus - None : Flow - Phasic: Augmentation -Normal: Reflux - None. 4. Posterior Tibial Vein: 4.1. Compressibility - Fully compressible: Thrombus - None: Flow - Phasic: Augmentation -Normal: Reflux - None. 5. Peroneal Vein: 5.1. Compressibility - Fully compressible: Thrombus - None: Flow - Phasic: Augmentation -Normal: Reflux - None. 6. Great Saphenous Vein: 6.1. Compressibility - Fully compressible: Thrombus - None: Flow - Phasic: Augmentation - Normal: Reflux - None. LEFT: 1. Common Femoral Vein: 1.1. Compressibility - Fully compressible: Thrombus - None: Flow - Phasic: Augmentation -Normal: Reflux - None. 2. Femoral Vein: 2.1. Compressibility - Fully compressible: Thrombus - None: Flow - Phasic: Augmentation -Normal: Reflux - None. 3. Popliteal Vein: 3.1. Compressibility - Fully compressible: Thrombus - None : Flow - Phasic: Augmentation -Normal: Reflux - None. 4. Posterior Tibial Vein: 4.1. Compressibility - Fully compressible: Thrombus - None: Flow - Phasic: Augmentation -Normal: Reflux - None. 5. Peroneal Vein: 5.1. Compressibility - Fully compressible: Thrombus - None: Flow - Phasic: Augmentation -Normal: Reflux - None. 6. Great Saphenous Vein: 6.1. Compressibility - Fully compressible: Thrombus - None: Flow - Phasic: Augmentation - Normal: Reflux - None. OTHER FINDINGS: Right: None significant. Left: None significant. IMPRESSION: Right: No evidence of deep or superficial vein thrombosis of the right lower extremity. Normal valve function noted of the right side. Left: No evidence of deep or superficial vein thrombosis of the left lower extremity. Normal valve function noted of the left side.
[2018-02-01] MEDS: Oxycodone/Acetaminophen 5/325 mg Tab PO PRN (15:08)
--- NOTE | 2018-02-01 20:13 | CP.PCM.PN ---
Subjective - Date & Time of Evaluation Date of Evaluation: 02/01/18 Time of Evaluation: 11:00 - Subjective Subjective: PGY 2 Med Note- Dr. Crews's service Patient seen and examined in no acute distress. No acute events overnight. Patient denies chest pain, palpitations,shortness of breath, nausea or vomiting at this time. Objective - Vital Signs/Intake and Output Vital Signs (last 24 hours): Temp Pulse Resp BP Pulse Ox 97.7 F 120 H 20 139/88 96 02/01/18 15:15 02/01/18 16:00 02/01/18 15:15 02/01/18 15:15 02/01/18 15:15 - Medications Medications: Current Medications Albuterol (Ventolin Hfa 90 Mcg/Actuation (8 G)) 2 puff IH RQ4 PRN PRN Reason: Shortness of Breath Last Admin: 02/01/18 07:45 Dose: 2 puff Apixaban (Eliquis) 5 mg PO Q12 [facility] Last Admin: 02/01/18 09:49 Dose: 5 mg Docusate Sodium (Colace) 100 mg PO BID [facility] Last Admin: 02/01/18 17:16 Dose: 100 mg Guaifenesin (Robitussin) 100 mg PO Q4H PRN PRN Reason: Cough Last Admin: 02/01/18 11:52 Dose: 100 mg Home Med (Patient's Own Medication) 1 tab PO DAILY [facility] Last Admin: 02/01/18 11:48 Dose: 1 tab Losartan Potassium (Cozaar) 50 mg PO DAILY [facility] Last Admin: 02/01/18 09:48 Dose: 50 mg Metoprolol Tartrate (Lopressor) 50 mg PO BID [facility] Last Admin: 02/01/18 17:16 Dose: 50 mg Montelukast Sodium (Singulair) 10 mg PO HS [facility] Last Admin: 01/31/18 21:18 Dose: 10 mg Oxybutynin Chloride (Ditropan Tab) 10 mg PO DAILY [facility] Last Admin: 02/01/18 09:49 Dose: 10 mg Oxycodone/Acetaminophen (Percocet 5/325 Mg Tab) 1 tab PO Q6 PRN PRN Reason: Pain, moderate (4-7) Last Admin: 02/01/18 15:08 Dose: 1 tab Pantoprazole Sodium (Protonix Ec Tab) 40 mg PO DAILY [facility] Last Admin: 02/01/18 09:48 Dose: 40 mg Rosuvastatin Calcium (Crestor) 10 mg PO HS [facility] Last Admin: 01/31/18 21:18 Dose: 10 mg Fluticasone/Salmeterol (Advair Diskus 250/50) 1 puff IH RQ12 [facility] Last Admin: 02/01/18 19:52 Dose: 1 puff Verapamil HCl (Calan Tab) 40 mg PO Q8 [facility] Last Admin: 02/01/18 15:08 Dose: 40 mg Zolpidem Tartrate (Ambien) 5 mg PO HS PRN PRN Reason: Insomnia Last Admin: 01/31/18 22:08 Dose: 5 mg - Labs Labs: 02/01/18 07:19 01/31/18 16:36 PT 12.4 SECONDS (9.7-12.2) H 01/30/18 10:26 INR 1.1 01/30/18 10:26 APTT 27 SECONDS (21-34) 01/30/18 10:26 - Constitutional Appears: Non-toxic, No Acute Distress - Head Exam Head Exam: ATRAUMATIC, NORMAL INSPECTION - Eye Exam Eye Exam: EOMI, Normal appearance Pupil Exam: NORMAL ACCOMODATION - ENT Exam ENT Exam: Mucous Membranes Moist - Neck Exam Neck Exam: Full ROM - Respiratory Exam Respiratory Exam: NORMAL BREATHING PATTERN - Cardiovascular Exam Cardiovascular Exam: Irregular Rhythm, +S1, +S2 - GI/Abdominal Exam GI & Abdominal Exam: Soft, Normal Bowel Sounds - Extremities Exam Extremities Exam: Full ROM - Back Exam Back Exam: Full ROM - Neurological Exam Neurological Exam: Alert, Awake, CN II-XII Intact - Psychiatric Exam Psychiatric exam: Normal Affect, Normal Mood - Skin Skin Exam: Dry, Warm Assessment and Plan - Assessment and Plan (Free Text) Assessment: Atrial fibrillation with A flutter at time. Patient is tachycardic Xarelto 20mg PO daily stopped due to medication interaction. Switched to Eliquis instead. Cardiology consulted, Dr. Owens . Recommendations for patient to have procedure once rate stabilized. F/U. Venous Dopplers negative F/U Echo Axillary Lymphadenopathy F/U Surgery recommendations once patient is rate controlled. Breast Cancer Anastrozole 1mg PO daily Dr. Cohn consulted, help appreciated Hypertension Controlled Losartan 50mg PO daily Lopressor 75mg PO BID Hyperlipidemia Crestor 5mg PO HS Asthma Controlled Advair Albuterol treatments prn SOB Singulair 10mg PO HS Insomnia Ambien 5mg PO HS Prophylactic Measures on Eliquis SCDS Protonix 40mg PO daily Colace 100mg PO BID Discussed with Dr. Crews. All medical management per Dr. Crews.
--- NOTE | 2018-02-01 22:22 | CP.PCM.PN ---
Subjective - Date & Time of Evaluation Date of Evaluation: 02/01/18 Time of Evaluation: 19:15 - Subjective Subjective: No complaints. Objective - Vital Signs/Intake and Output Vital Signs (last 24 hours): Temp Pulse Resp BP Pulse Ox 97.7 F 120 H 20 139/88 96 02/01/18 15:15 02/01/18 16:00 02/01/18 15:15 02/01/18 15:15 02/01/18 15:15 - Medications Medications: Current Medications Albuterol (Ventolin Hfa 90 Mcg/Actuation (8 G)) 2 puff IH RQ4 PRN PRN Reason: Shortness of Breath Last Admin: 02/01/18 07:45 Dose: 2 puff Apixaban (Eliquis) 5 mg PO Q12 [facility] Last Admin: 02/01/18 21:48 Dose: 5 mg Docusate Sodium (Colace) 100 mg PO BID [facility] Last Admin: 02/01/18 17:16 Dose: 100 mg Guaifenesin (Robitussin) 100 mg PO Q4H PRN PRN Reason: Cough Last Admin: 02/01/18 11:52 Dose: 100 mg Home Med (Patient's Own Medication) 1 tab PO DAILY [facility] Last Admin: 02/01/18 11:48 Dose: 1 tab Losartan Potassium (Cozaar) 50 mg PO DAILY [facility] Last Admin: 02/01/18 09:48 Dose: 50 mg Metoprolol Tartrate (Lopressor) 50 mg PO BID [facility] Last Admin: 02/01/18 17:16 Dose: 50 mg Montelukast Sodium (Singulair) 10 mg PO HS [facility] Last Admin: 02/01/18 21:48 Dose: 10 mg Oxybutynin Chloride (Ditropan Tab) 10 mg PO DAILY [facility] Last Admin: 02/01/18 09:49 Dose: 10 mg Oxycodone/Acetaminophen (Percocet 5/325 Mg Tab) 1 tab PO Q6 PRN PRN Reason: Pain, moderate (4-7) Last Admin: 02/01/18 15:08 Dose: 1 tab Pantoprazole Sodium (Protonix Ec Tab) 40 mg PO DAILY [facility] Last Admin: 02/01/18 09:48 Dose: 40 mg Rosuvastatin Calcium (Crestor) 10 mg PO HS [facility] Last Admin: 02/01/18 21:48 Dose: 10 mg Fluticasone/Salmeterol (Advair Diskus 250/50) 1 puff IH RQ12 [facility] Last Admin: 02/01/18 19:52 Dose: 1 puff Verapamil HCl (Calan Tab) 40 mg PO Q8 [facility] Last Admin: 02/01/18 21:52 Dose: 40 mg Zolpidem Tartrate (Ambien) 5 mg PO HS PRN PRN Reason: Insomnia Last Admin: 02/01/18 21:54 Dose: 5 mg - Labs Labs: 02/01/18 07:19 01/31/18 16:36 PT 12.4 SECONDS (9.7-12.2) H 01/30/18 10:26 INR 1.1 01/30/18 10:26 APTT 27 SECONDS (21-34) 01/30/18 10:26 - Head Exam Head Exam: ATRAUMATIC - Eye Exam Eye Exam: Normal appearance - ENT Exam ENT Exam: Mucous Membranes Dry - Respiratory Exam Respiratory Exam: NORMAL BREATHING PATTERN - Cardiovascular Exam Cardiovascular Exam: +S1, +S2 - GI/Abdominal Exam GI & Abdominal Exam: Normal Bowel Sounds Assessment and Plan (1) Axillary adenopathy Assessment & Plan: biopsy once cleared by cardiology Status: Acute (2) Breast cancer Assessment & Plan: on hormonal therapy rule out recurrence Status: Acute
[2018-02-02] MEDS: guaiFENesin 100 mg/5 ml Syrup UD PO PRN (00:06)
[2018-02-02 08:22] LABS: BASO % 0.5 % (0.0-2.0); EOS # 0.3 K/uL (0.0-0.7); EOS % 3.7 % (0.0-4.0); HEMOGLOBIN 11.3 g/dL (11.0-16.0); LYMPH # 2.1 K/uL (1.0-4.3); LYMPH % 27.6 % (20.0-40.0); MEAN CELL VOLUME 86.2 fL (81.0-99.0); MEAN CORPUSCULAR HGB CONC 33.6 g/dL (33.0-37.0); MEAN PLATELET VOLUME 9.7 fL (7.2-11.7); MONO # 0.5 K/uL (0.0-0.8); NEUT # 4.7 K/uL (1.8-7.0); NEUT % 61.2 % (50.0-75.0); RBC 3.89 Mil/uL (3.80-5.20); RED CELL DISTRIBUTION WIDTH 15.4 % (11.5-14.5); WHITE BLOOD COUNT 7.7 K/uL (4.8-10.8)
[2018-02-02 08:34] LABS: ALB/GLOB RATIO 1.1 (1.0-2.1); ALBUMIN 3.6 g/dL (3.5-5.0); ALT/SGPT 13 U/L (9-52); AST/SGOT 17 U/L (14-36); BLOOD UREA NITROGEN 13 mg/dL (7-17); CALCIUM 9.1 mg/dl (8.6-10.4); GFR AFRICAN-AMERICAN > 60; GFR NON-AFRICAN AMERICAN > 60
[2018-02-02] MEDS: EXEMESTANE 25 MG PO SCH (10:13)
[2018-02-02] MEDS: Pantoprazole 40 mg EC Tab PO SCH (10:14)
[2018-02-02] MEDS: Fluticasone-Salmeterol 250-50mcg Diskus IH SCH ×2 (10:46→19:34)
--- NOTE | 2018-02-02 17:03 | CP.PCM.PN ---
Subjective - Date & Time of Evaluation Date of Evaluation: 02/02/18 Time of Evaluation: 16:56 - Subjective Subjective: pt feels better. hr was controlled however today the hr increased above 100. pt has had aflutter for several months. echo reveals nml cardiac thickening in all jenkins, EF appears falsely low b/c of rapid irregular rate. Objective - Vital Signs/Intake and Output Vital Signs (last 24 hours): Temp Pulse Resp BP Pulse Ox 97.8 F 93 H 20 126/93 H 97 02/02/18 15:25 02/02/18 15:25 02/02/18 15:25 02/02/18 15:25 02/02/18 15:25 Intake and Output: 02/02/18 02/02/18 06:59 18:59 Intake Total 240 Balance 240 - Medications Medications: Current Medications Albuterol (Ventolin Hfa 90 Mcg/Actuation (8 G)) 2 puff IH RQ4 PRN PRN Reason: Shortness of Breath Last Admin: 02/01/18 07:45 Dose: 2 puff Apixaban (Eliquis) 5 mg PO Q12 [facility] Last Admin: 02/02/18 10:14 Dose: 5 mg Diltiazem HCl (Cardizem) 30 mg PO Q6 [facility] Docusate Sodium (Colace) 100 mg PO BID [facility] Last Admin: 02/02/18 10:14 Dose: 100 mg Guaifenesin (Robitussin) 100 mg PO Q4H PRN PRN Reason: Cough Last Admin: 02/02/18 00:06 Dose: 100 mg Home Med (Patient's Own Medication) 1 tab PO DAILY [facility] Last Admin: 02/02/18 10:13 Dose: 1 tab Amiodarone HCl 150 mg/ (Dextrose) 103 mls @ 618 mls/hr IVPB ONCE ONE PRN Reason: Protocol Stop: 02/02/18 16:58 Amiodarone HCl 900 mg/ (Dextrose) 500 mls @ 33.33 mls/hr IV .Q15H1M ONE; 1 MG/ MIN PRN Reason: Protocol Stop: 02/03/18 07:50 Amiodarone HCl 900 mg/ (Dextrose) 500 mls @ 16.66 mls/hr IV .Q24H ONE; 0.5 MG/ MIN PRN Reason: Protocol Stop: 02/03/18 16:49 Losartan Potassium (Cozaar) 50 mg PO DAILY [facility] Last Admin: 02/02/18 10:17 Dose: 50 mg Metoprolol Succinate (Toprol Xl) 50 mg PO Q12 [facility] Montelukast Sodium (Singulair) 10 mg PO HS [facility] Last Admin: 02/01/18 21:48 Dose: 10 mg Oxybutynin Chloride (Ditropan Tab) 10 mg PO DAILY [facility] Last Admin: 02/02/18 12:03 Dose: 10 mg Oxycodone/Acetaminophen (Percocet 5/325 Mg Tab) 1 tab PO Q6 PRN PRN Reason: Pain, moderate (4-7) Last Admin: 02/01/18 15:08 Dose: 1 tab Pantoprazole Sodium (Protonix Ec Tab) 40 mg PO DAILY [facility] Last Admin: 02/02/18 10:14 Dose: 40 mg Rosuvastatin Calcium (Crestor) 10 mg PO HS [facility] Last Admin: 02/01/18 21:48 Dose: 10 mg Fluticasone/Salmeterol (Advair Diskus 250/50) 1 puff IH RQ12 [facility] Last Admin: 02/02/18 10:46 Dose: 1 puff Zolpidem Tartrate (Ambien) 5 mg PO HS PRN PRN Reason: Insomnia Last Admin: 02/01/18 21:54 Dose: 5 mg - Labs Labs: 02/02/18 08:11 02/02/18 08:11 PT 12.4 SECONDS (9.7-12.2) H 01/30/18 10:26 INR 1.1 01/30/18 10:26 APTT 27 SECONDS (21-34) 01/30/18 10:26 - Constitutional Appears: Well - Head Exam Head Exam: ATRAUMATIC, NORMAL INSPECTION, NORMOCEPHALIC - Eye Exam Eye Exam: EOMI, Normal appearance, PERRL. absent: Conjunctival injection, Nystagmus, Periorbital swelling, Periorbital tenderness, Scleral icterus Pupil Exam: NORMAL ACCOMODATION, PERRL - ENT Exam ENT Exam: Mucous Membranes Moist, Normal Exam. absent: Mucous Membranes Dry, Normal External Ear Exam, Normal Oropharynx, TM's Normal Bilaterally - Neck Exam Neck Exam: Full ROM, Normal Inspection. absent: Lymphadenopathy, Meningismus, Tenderness, Thyromegaly - Respiratory Exam Respiratory Exam: Clear to Ausculation Bilateral, NORMAL BREATHING PATTERN. absent: Accessory Muscle Use, Chest Wall Tenderness, Decreased Breath Sounds, Prolonged Expiratory Phase, Rales, Rhonchi, Wheezes, Respiratory Distress, Stridor - Cardiovascular Exam Cardiovascular Exam: Irregular Rhythm, +S1, +S2, Murmur. absent: Bradycardia, Tachycardia, Clicks, Diastolic murmur, Gallop, REGULAR RHYTHM, JVD, RRR, Rubs, + S4 - GI/Abdominal Exam GI & Abdominal Exam: Soft, Normal Bowel Sounds. absent: Bruit, Distended, Firm , Guarding, Rigid, Tenderness, Diminished Bowel Sounds, Hernia, Hyperactive Bowel Sounds, Hypoactive Bowel Sounds, Organomegaly, Pulsatile Mass, Rebound, Mass - Rectal Exam Rectal Exam: Deferred, NORMAL INSPECTION - Extremities Exam Extremities Exam: Full ROM, Normal Capillary Refill, Normal Inspection. absent : Calf Tenderness, Joint Swelling, Pedal Edema, Tenderness - Back Exam Back Exam: NORMAL INSPECTION. absent: CVA tenderness (L), CVA tenderness (R), Full ROM, muscle spasm, paraspinal tenderness, rash noted, tenderness, vertebral tenderness - Neurological Exam Neurological Exam: Alert, Awake, CN II-XII Intact, Normal Gait, Oriented x3. absent: Abnormal Gait, Altered, Motor Sensory Deficit, Reflexes Normal - Psychiatric Exam Psychiatric exam: Normal Affect, Normal Mood. absent: Agitated, Anxious, Depressed, Flat Affect, Homicidal Ideation, Manic, Suicidal Ideation - Skin Skin Exam: Dry, Intact, Normal Color, Warm. absent: Abrasion, Cyanosis, Diaphoretic, Erythema, Mottled, Pallor, Pallor, Petechiae, Rash, Urticaria, Vesicles Assessment and Plan (1) Flutter-fibrillation Status: Acute (2) HTN (hypertension) Status: Acute (3) Dyslipidemia (high LDL; low HDL) Status: Acute (4) LAE (left atrial enlargement) Status: Acute (5) Breast cancer Status: Acute - Assessment and Plan (Free Text) Plan: GIVEN CONTRAST ALLERGY AMIODARONE LOADING AND CHEMICAL CARDIOVERSION IS CONTRAINDICATED. WILL INCREASE TOPROL XL TO 50 Q12. CHANGE TO CARDIZEM CD 240MG DAILY. IF RATE IS CONTROLLED TOMORROW THEN MAY BE D/C TO HOME AND F/U WITH IN 1 WEEK MONITOR BARBARA D/W PT, FAMILY, RN AND PHARMACY STAFF.
[2018-02-02] MEDS: Oxycodone/Acetaminophen 5/325 mg Tab PO PRN (19:31)
[2018-02-02] MEDS: Metoprolol Succinate 50 mg XL Tab PO SCH (22:25)
--- NOTE | 2018-02-03 03:33 | CP.PCM.PN ---
Subjective - Date & Time of Evaluation Date of Evaluation: 02/02/18 Time of Evaluation: 17:15 - Subjective Subjective: No complaints. Objective - Vital Signs/Intake and Output Vital Signs (last 24 hours): Temp Pulse Resp BP Pulse Ox 97.6 F 118 H 20 114/85 97 02/02/18 23:00 02/02/18 23:53 02/02/18 23:00 02/02/18 23:00 02/02/18 23:00 Intake and Output: 02/02/18 02/03/18 18:59 06:59 Intake Total 400 Balance 400 - Medications Medications: Current Medications Albuterol (Ventolin Hfa 90 Mcg/Actuation (8 G)) 2 puff IH RQ4 PRN PRN Reason: Shortness of Breath Last Admin: 02/01/18 07:45 Dose: 2 puff Apixaban (Eliquis) 5 mg PO Q12 [facility] Last Admin: 02/02/18 22:24 Dose: 5 mg Diltiazem HCl (Cardizem Cd) 240 mg PO DAILY [facility] Docusate Sodium (Colace) 100 mg PO BID [facility] Last Admin: 02/02/18 17:52 Dose: 100 mg Guaifenesin (Robitussin) 100 mg PO Q4H PRN PRN Reason: Cough Last Admin: 02/02/18 00:06 Dose: 100 mg Home Med (Patient's Own Medication) 1 tab PO DAILY [facility] Last Admin: 02/02/18 10:13 Dose: 1 tab Losartan Potassium (Cozaar) 50 mg PO DAILY [facility] Last Admin: 02/02/18 10:17 Dose: 50 mg Metoprolol Succinate (Toprol Xl) 50 mg PO Q12 [facility] Last Admin: 02/02/18 22:25 Dose: 50 mg Montelukast Sodium (Singulair) 10 mg PO HS [facility] Last Admin: 02/02/18 22:25 Dose: 10 mg Oxybutynin Chloride (Ditropan Tab) 10 mg PO DAILY [facility] Last Admin: 02/02/18 12:03 Dose: 10 mg Oxycodone/Acetaminophen (Percocet 5/325 Mg Tab) 1 tab PO Q6 PRN PRN Reason: Pain, moderate (4-7) Last Admin: 02/02/18 19:31 Dose: 1 tab Pantoprazole Sodium (Protonix Ec Tab) 40 mg PO DAILY [facility] Last Admin: 02/02/18 10:14 Dose: 40 mg Rosuvastatin Calcium (Crestor) 10 mg PO HS [facility] Last Admin: 02/02/18 22:25 Dose: 10 mg Fluticasone/Salmeterol (Advair Diskus 250/50) 1 puff IH RQ12 [facility] Last Admin: 02/02/18 19:34 Dose: 1 puff Zolpidem Tartrate (Ambien) 5 mg PO HS PRN PRN Reason: Insomnia Last Admin: 02/02/18 22:24 Dose: 5 mg - Labs Labs: 02/02/18 08:11 02/02/18 08:11 PT 12.4 SECONDS (9.7-12.2) H 01/30/18 10:26 INR 1.1 01/30/18 10:26 APTT 27 SECONDS (21-34) 01/30/18 10:26 - Head Exam Head Exam: ATRAUMATIC - Eye Exam Eye Exam: Normal appearance - ENT Exam ENT Exam: Mucous Membranes Dry - Respiratory Exam Respiratory Exam: NORMAL BREATHING PATTERN - Cardiovascular Exam Cardiovascular Exam: +S1, +S2 - GI/Abdominal Exam GI & Abdominal Exam: Normal Bowel Sounds Assessment and Plan (1) Axillary adenopathy Assessment & Plan: biopsy once cleared by cardiology Status: Acute (2) Breast cancer Assessment & Plan: on aromatase inhibitor rule out recurrence Status: Acute
[2018-02-03] MEDS: guaiFENesin 100 mg/5 ml Syrup UD PO PRN ×3 (07:03→23:55)
[2018-02-03 08:56] LABS: BASO # 0.1 K/uL (0.0-0.2); BASO % 0.8 % (0.0-2.0); EOS # 0.2 K/uL (0.0-0.7); EOS % 3.2 % (0.0-4.0); HEMOGLOBIN 11.1 g/dL (11.0-16.0); LYMPH # 1.7 K/uL (1.0-4.3); LYMPH % 26.4 % (20.0-40.0); MEAN CELL VOLUME 85.8 fL (81.0-99.0); MEAN CORPUSCULAR HEMOGLOBIN 29.3 pg (27.0-31.0); MEAN CORPUSCULAR HGB CONC 34.2 g/dL (33.0-37.0); MEAN PLATELET VOLUME 9.2 fL (7.2-11.7); MONO # 0.3 K/uL (0.0-0.8); NEUT # 4.2 K/uL (1.8-7.0); NEUT % 64.6 % (50.0-75.0); RBC 3.79 Mil/uL (3.80-5.20); RED CELL DISTRIBUTION WIDTH 15.8 % (11.5-14.5); WHITE BLOOD COUNT 6.6 K/uL (4.8-10.8)
[2018-02-03 09:11] LABS: ALB/GLOB RATIO 1.1 (1.0-2.1); ALBUMIN 3.7 g/dL (3.5-5.0); ALT/SGPT 7 U/L (9-52); AST/SGOT 17 U/L (14-36); BLOOD UREA NITROGEN 14 mg/dL (7-17); CALCIUM 9.2 mg/dl (8.6-10.4); GFR AFRICAN-AMERICAN > 60; GFR NON-AFRICAN AMERICAN > 60
[2018-02-03] MEDS ORDERED: Verapamil 180 mg ER Tab PO SCH (10:00)
[2018-02-03] MEDS: diltiaZEM 240 mg/24 Hours CD Cap PO SCH (10:45)
[2018-02-03] MEDS: Pantoprazole 40 mg EC Tab PO SCH (10:48)
[2018-02-03] MEDS: Metoprolol Succinate 50 mg XL Tab PO SCH ×2 (10:48→21:42)
[2018-02-03] MEDS: EXEMESTANE 25 MG PO SCH (10:49)
[2018-02-03] MEDS: Fluticasone-Salmeterol 250-50mcg Diskus IH SCH ×2 (11:19→19:31)
--- NOTE | 2018-02-03 11:34 | CARD ---
APPROVED REPORT EXAM: Two-dimensional and M-mode echocardiogram with Doppler and color Doppler. Other Information Quality : GoodRhythm : INDICATION Atrial Fibrillation Rapid A Flutter 2D DIMENSIONS IVSd1.1 (0.7-1.1cm)LVDd4.5 (3.9-5.9cm) PWd1.0 (0.7-1.1cm)LVDs3.2 (2.5-4.0cm) FS (%) 27.3 %LVEF (%)40.0 (>50%) M-Mode DIMENSIONS Left Atrium (MM)4.77 (2.5-4.0cm)Aortic Root1.34 (2.2-3.7cm) Aortic Cusp Exc.1.65 (1.5-2.0cm) Mitral Valve MV E [id number]/sE/A ratio0.0 TDI E/Lateral E'0.0E/Medial E'0.0 Tricuspid Valve TR Peak [id number] Peak Gr.40mmHg <Conclusion> Left ventricle: thickness: normal; size: normal; overall ejection fraction: 35%-40: diastolic filling pressures: elevated Mitral valve: annulus: normal: leaflets: normal: excursion: normal; no significant trans-mitral gradient: moderate incompetence: left atrium: dilated Aortic valve: leaflets: normal: excursion: normal; no significant trans-aortic gradient: No significant incompetence: aortic root: normal Right sided Structures: Pulmonary valve: normal; no significant incompetence; Tricuspid valve: normal; mild incompetence: Intra-cardiac hemodynamics: pulmonary systolic pressures: 50mmHg; central venous pressures: normal No pericardial effusion
[2018-02-03] MEDS: Oxycodone/Acetaminophen 5/325 mg Tab PO PRN (15:54)
--- NOTE | 2018-02-03 17:15 | CP.PCM.PN ---
Subjective - Date & Time of Evaluation Date of Evaluation: 02/03/18 Time of Evaluation: 16:40 - Subjective Subjective: No complaints. Objective - Vital Signs/Intake and Output Vital Signs (last 24 hours): Temp Pulse Resp BP Pulse Ox 98.4 F 76 20 126/69 97 02/03/18 15:30 02/03/18 15:30 02/03/18 15:30 02/03/18 15:30 02/03/18 15:30 Intake and Output: 02/03/18 02/03/18 06:59 18:59 Intake Total 400 Balance 400 - Medications Medications: Current Medications Albuterol (Ventolin Hfa 90 Mcg/Actuation (8 G)) 2 puff IH RQ4 PRN PRN Reason: Shortness of Breath Last Admin: 02/01/18 07:45 Dose: 2 puff Apixaban (Eliquis) 5 mg PO Q12 [facility] Last Admin: 02/03/18 10:48 Dose: 5 mg Diltiazem HCl (Cardizem Cd) 240 mg PO DAILY [facility] Last Admin: 02/03/18 10:45 Dose: 240 mg Docusate Sodium (Colace) 100 mg PO BID [facility] Last Admin: 02/03/18 10:48 Dose: 100 mg Guaifenesin (Robitussin) 100 mg PO Q4H PRN PRN Reason: Cough Last Admin: 02/03/18 15:56 Dose: 100 mg Home Med (Patient's Own Medication) 1 tab PO DAILY [facility] Last Admin: 02/03/18 10:49 Dose: 1 tab Losartan Potassium (Cozaar) 50 mg PO DAILY [facility] Last Admin: 02/03/18 10:48 Dose: 50 mg Metoprolol Succinate (Toprol Xl) 50 mg PO Q12 [facility] Last Admin: 02/03/18 10:48 Dose: 50 mg Montelukast Sodium (Singulair) 10 mg PO HS [facility] Last Admin: 02/02/18 22:25 Dose: 10 mg Oxybutynin Chloride (Ditropan Tab) 10 mg PO DAILY [facility] Last Admin: 02/03/18 12:34 Dose: 10 mg Oxycodone/Acetaminophen (Percocet 5/325 Mg Tab) 1 tab PO Q6 PRN PRN Reason: Pain, moderate (4-7) Last Admin: 02/03/18 15:54 Dose: 1 tab Pantoprazole Sodium (Protonix Ec Tab) 40 mg PO DAILY [facility] Last Admin: 02/03/18 10:48 Dose: 40 mg Rosuvastatin Calcium (Crestor) 10 mg PO HS [facility] Last Admin: 02/02/18 22:25 Dose: 10 mg Fluticasone/Salmeterol (Advair Diskus 250/50) 1 puff IH RQ12 [facility] Last Admin: 02/03/18 11:19 Dose: 1 puff Zolpidem Tartrate (Ambien) 5 mg PO HS PRN PRN Reason: Insomnia Last Admin: 02/02/18 22:24 Dose: 5 mg - Labs Labs: 02/03/18 08:42 02/03/18 08:42 PT 12.4 SECONDS (9.7-12.2) H 01/30/18 10:26 INR 1.1 01/30/18 10:26 APTT 27 SECONDS (21-34) 01/30/18 10:26 - Head Exam Head Exam: ATRAUMATIC - Eye Exam Eye Exam: Normal appearance - ENT Exam ENT Exam: Mucous Membranes Dry - Cardiovascular Exam Cardiovascular Exam: +S1, +S2 - GI/Abdominal Exam GI & Abdominal Exam: Normal Bowel Sounds Assessment and Plan (1) Axillary adenopathy Assessment & Plan: for biopsy cardiology clearance Status: Acute (2) Breast cancer Assessment & Plan: on aromatase inhibitor LN biopsy ? recurrence Status: Acute
--- NOTE | 2018-02-03 21:16 | CARD ---
APPROVED REPORT EKG Measurement Heart [id number] <Conclusion> Atrial fibrillation Nonspecific T wave abnormality Abnormal ECG
[2018-02-03] MEDS ORDERED: Oxycodone/Acetaminophen 5/325 mg Tab PO PRN (22:57)
[2018-02-04 07:33] LABS: BASO % 0.5 % (0.0-2.0); EOS # 0.2 K/uL (0.0-0.7); EOS % 3.5 % (0.0-4.0); HEMOGLOBIN 11.3 g/dL (11.0-16.0); LYMPH # 1.9 K/uL (1.0-4.3); LYMPH % 26.7 % (20.0-40.0); MEAN CELL VOLUME 84.8 fL (81.0-99.0); MEAN CORPUSCULAR HEMOGLOBIN 28.9 pg (27.0-31.0); MEAN CORPUSCULAR HGB CONC 34.1 g/dL (33.0-37.0); MEAN PLATELET VOLUME 9.1 fL (7.2-11.7); MONO # 0.5 K/uL (0.0-0.8); MONO % 6.8 % (0.0-10.0); NEUT # 4.4 K/uL (1.8-7.0); NEUT % 62.5 % (50.0-75.0); RBC 3.89 Mil/uL (3.80-5.20); RED CELL DISTRIBUTION WIDTH 15.5 % (11.5-14.5); WHITE BLOOD COUNT 7.1 K/uL (4.8-10.8)
[2018-02-04 07:55] LABS: ALB/GLOB RATIO 1.1 (1.0-2.1); ALBUMIN 3.9 g/dL (3.5-5.0); ALT/SGPT 12 U/L (9-52); AST/SGOT 25 U/L (14-36); BLOOD UREA NITROGEN 16 mg/dL (7-17); CALCIUM 9.5 mg/dl (8.6-10.4); GFR AFRICAN-AMERICAN > 60; GFR NON-AFRICAN AMERICAN 55
--- NOTE | 2018-02-04 08:16 | CP.PCM.PN ---
Subjective - Date & Time of Evaluation Date of Evaluation: 02/04/18 Time of Evaluation: 10:33 - Subjective Subjective: PGY 2 Medicine Note- Dr. Crews's service Patient seen and examined in no acute distress. No acute events overnight. Patient states that Certified Court Interpreter is to perform "a special test" because her heart rate is not stable. Patient denies chest pain, palpitations,shortness of breath, nausea or vomiting, malaise or headaches at this time. Objective - Vital Signs/Intake and Output Vital Signs (last 24 hours): Temp Pulse Resp BP Pulse Ox 98.3 F 99 H 20 155/72 H 95 02/04/18 07:45 02/04/18 07:45 02/04/18 07:45 02/04/18 07:45 02/04/18 07:45 Intake and Output: 02/04/18 02/04/18 06:59 18:59 Intake Total 480 Balance 480 - Medications Medications: Current Medications Albuterol (Ventolin Hfa 90 Mcg/Actuation (8 G)) 2 puff IH RQ4 PRN PRN Reason: Shortness of Breath Last Admin: 02/01/18 07:45 Dose: 2 puff Apixaban (Eliquis) 5 mg PO Q12 [facility] Last Admin: 02/03/18 21:42 Dose: 5 mg Diltiazem HCl (Cardizem Cd) 240 mg PO DAILY [facility] Last Admin: 02/03/18 10:45 Dose: 240 mg Docusate Sodium (Colace) 100 mg PO BID [facility] Last Admin: 02/03/18 17:46 Dose: 100 mg Guaifenesin (Robitussin) 100 mg PO Q4H PRN PRN Reason: Cough Last Admin: 02/03/18 23:55 Dose: 100 mg Home Med (Patient's Own Medication) 1 tab PO DAILY [facility] Last Admin: 02/03/18 10:49 Dose: 1 tab Losartan Potassium (Cozaar) 50 mg PO DAILY [facility] Last Admin: 02/03/18 10:48 Dose: 50 mg Metoprolol Succinate (Toprol Xl) 50 mg PO Q12 [facility] Last Admin: 02/03/18 21:42 Dose: 50 mg Montelukast Sodium (Singulair) 10 mg PO HS [facility] Last Admin: 02/03/18 21:42 Dose: 10 mg Oxybutynin Chloride (Ditropan Tab) 10 mg PO DAILY [facility] Last Admin: 02/03/18 12:34 Dose: 10 mg Oxycodone/Acetaminophen (Percocet 5/325 Mg Tab) 1 tab PO Q6H PRN PRN Reason: Pain, moderate (4-7) Stop: 02/06/18 22:58 Pantoprazole Sodium (Protonix Ec Tab) 40 mg PO DAILY [facility] Last Admin: 02/03/18 10:48 Dose: 40 mg Rosuvastatin Calcium (Crestor) 10 mg PO HS [facility] Last Admin: 02/03/18 21:42 Dose: 10 mg Fluticasone/Salmeterol (Advair Diskus 250/50) 1 puff IH RQ12 [facility] Last Admin: 02/03/18 19:31 Dose: 1 puff Zolpidem Tartrate (Ambien) 5 mg PO HS PRN PRN Reason: Insomnia Last Admin: 02/03/18 21:42 Dose: 5 mg - Labs Labs: 02/04/18 07:24 02/04/18 07:24 PT 12.4 SECONDS (9.7-12.2) H 01/30/18 10:26 INR 1.1 01/30/18 10:26 APTT 27 SECONDS (21-34) 01/30/18 10:26 - Constitutional Appears: Non-toxic, No Acute Distress - Head Exam Head Exam: ATRAUMATIC, NORMAL INSPECTION - Eye Exam Eye Exam: EOMI, Normal appearance Pupil Exam: NORMAL ACCOMODATION - ENT Exam ENT Exam: Mucous Membranes Moist - Respiratory Exam Respiratory Exam: NORMAL BREATHING PATTERN - Cardiovascular Exam Cardiovascular Exam: Irregular Rhythm, +S1, +S2 - GI/Abdominal Exam GI & Abdominal Exam: Soft, Normal Bowel Sounds - Extremities Exam Extremities Exam: Full ROM, Normal Capillary Refill - Back Exam Back Exam: Full ROM - Neurological Exam Neurological Exam: Alert, Awake, Oriented x3 Neuro motor strength exam: Left Upper Extremity: 5 - Skin Skin Exam: Warm Assessment and Plan - Assessment and Plan (Free Text) Assessment: Atrial fibrillation HR stable currently though labile at times. Patient to have cardioversion performed per Certified Court Interpreter Dr. Owens. F/U On Eliquis Venous Dopplers negative F/U Echo 01/30- EF 40%. Diastolic filling pressures elevated. Refer to complete report. Axillary Lymphadenopathy Patient to have biopsy once rate controlled. Breast Cancer Anastrozole 1mg PO daily Dr. Cohn consulted, help appreciated Hypertension Controlled Losartan 50mg PO daily Lopressor 75mg PO BID Hyperlipidemia Crestor 5mg PO HS Asthma Controlled Advair Albuterol treatments prn SOB Singulair 10mg PO HS Insomnia Ambien 5mg PO HS Prophylactic Measures on Eliquis SCDS Protonix 40mg PO daily Colace 100mg PO BID Discussed with Dr. Crews. All medical management per Dr. Crews.
--- NOTE | 2018-02-04 09:14 | PN ---
DATE: 02/03/2018 The patient is improving. We will monitor the heart rate. Cardiology evaluation to follow up. Marcell Crews MD
[2018-02-04] MEDS: diltiaZEM 240 mg/24 Hours CD Cap PO SCH (10:05)
[2018-02-04] MEDS: Metoprolol Succinate 50 mg XL Tab PO SCH ×2 (10:05→21:29)
[2018-02-04] MEDS: EXEMESTANE 25 MG PO SCH (10:06)
[2018-02-04] MEDS: Pantoprazole 40 mg EC Tab PO SCH (10:06)
[2018-02-04] MEDS: Fluticasone-Salmeterol 250-50mcg Diskus IH SCH ×2 (10:38→19:04)
--- NOTE | 2018-02-04 23:11 | CP.PCM.PN ---
Subjective - Date & Time of Evaluation Date of Evaluation: 02/04/18 Time of Evaluation: 18:15 - Subjective Subjective: No complaints, for possible cardioversion tomorrow Objective - Vital Signs/Intake and Output Vital Signs (last 24 hours): Temp Pulse Resp BP Pulse Ox 97.8 F 80 20 122/69 95 02/04/18 15:46 02/04/18 16:00 02/04/18 15:46 02/04/18 15:46 02/04/18 15:46 - Medications Medications: Current Medications Albuterol (Ventolin Hfa 90 Mcg/Actuation (8 G)) 2 puff IH RQ4 PRN PRN Reason: Shortness of Breath Last Admin: 02/01/18 07:45 Dose: 2 puff Apixaban (Eliquis) 5 mg PO Q12 [facility] Last Admin: 02/04/18 21:29 Dose: 5 mg Diltiazem HCl (Cardizem Cd) 240 mg PO DAILY [facility] Last Admin: 02/04/18 10:05 Dose: 240 mg Docusate Sodium (Colace) 100 mg PO BID [facility] Last Admin: 02/04/18 17:37 Dose: 100 mg Guaifenesin (Robitussin) 100 mg PO Q4H PRN PRN Reason: Cough Last Admin: 02/03/18 23:55 Dose: 100 mg Home Med (Patient's Own Medication) 1 tab PO DAILY [facility] Last Admin: 02/04/18 10:06 Dose: 1 tab Losartan Potassium (Cozaar) 50 mg PO DAILY [facility] Last Admin: 02/04/18 10:06 Dose: 50 mg Metoprolol Succinate (Toprol Xl) 50 mg PO Q12 [facility] Last Admin: 02/04/18 21:29 Dose: 50 mg Montelukast Sodium (Singulair) 10 mg PO HS [facility] Last Admin: 02/04/18 21:29 Dose: 10 mg Oxybutynin Chloride (Ditropan Tab) 10 mg PO DAILY [facility] Last Admin: 02/04/18 10:05 Dose: 10 mg Oxycodone/Acetaminophen (Percocet 5/325 Mg Tab) 1 tab PO Q6H PRN PRN Reason: Pain, moderate (4-7) Stop: 02/06/18 22:58 Pantoprazole Sodium (Protonix Ec Tab) 40 mg PO DAILY [facility] Last Admin: 02/04/18 10:06 Dose: 40 mg Rosuvastatin Calcium (Crestor) 10 mg PO HS [facility] Last Admin: 02/04/18 21:29 Dose: 10 mg Fluticasone/Salmeterol (Advair Diskus 250/50) 1 puff IH RQ12 [facility] Last Admin: 02/04/18 19:04 Dose: 1 puff Zolpidem Tartrate (Ambien) 5 mg PO HS PRN PRN Reason: Insomnia Last Admin: 02/04/18 21:29 Dose: 5 mg - Labs Labs: 02/04/18 07:24 02/04/18 07:24 PT 12.4 SECONDS (9.7-12.2) H 01/30/18 10:26 INR 1.1 01/30/18 10:26 APTT 27 SECONDS (21-34) 01/30/18 10:26 - Head Exam Head Exam: ATRAUMATIC - Eye Exam Eye Exam: Normal appearance - ENT Exam ENT Exam: Mucous Membranes Dry - Respiratory Exam Respiratory Exam: NORMAL BREATHING PATTERN - Cardiovascular Exam Cardiovascular Exam: +S1, +S2 - GI/Abdominal Exam GI & Abdominal Exam: Normal Bowel Sounds Assessment and Plan (1) Axillary adenopathy Assessment & Plan: LN biopsy once cleared by cardio Status: Acute (2) Breast cancer Assessment & Plan: on hormonal therapy ? recurrence in axilla Status: Acute
[2018-02-05 07:29] LABS: BASO % 0.5 % (0.0-2.0); EOS # 0.2 K/uL (0.0-0.7); EOS % 3.1 % (0.0-4.0); HEMOGLOBIN 11.6 g/dL (11.0-16.0); LYMPH # 1.8 K/uL (1.0-4.3); LYMPH % 24.9 % (20.0-40.0); MEAN CELL VOLUME 85.3 fL (81.0-99.0); MEAN CORPUSCULAR HEMOGLOBIN 29.2 pg (27.0-31.0); MEAN CORPUSCULAR HGB CONC 34.2 g/dL (33.0-37.0); MEAN PLATELET VOLUME 9.1 fL (7.2-11.7); MONO # 0.6 K/uL (0.0-0.8); MONO % 8.3 % (0.0-10.0); NEUT # 4.5 K/uL (1.8-7.0); NEUT % 63.2 % (50.0-75.0); RBC 3.97 Mil/uL (3.80-5.20); RED CELL DISTRIBUTION WIDTH 15.5 % (11.5-14.5); WHITE BLOOD COUNT 7.1 K/uL (4.8-10.8)
[2018-02-05] MEDS: Fluticasone-Salmeterol 250-50mcg Diskus IH SCH (07:47)
[2018-02-05 07:54] VITALS: TEMP 97.8
[2018-02-05 08:18] LABS: ALB/GLOB RATIO 1.1 (1.0-2.1); ALBUMIN 3.9 g/dL (3.5-5.0)
[2018-02-05] MEDS: Pantoprazole 40 mg EC Tab PO SCH (10:03)
[2018-02-05] MEDS: diltiaZEM 240 mg/24 Hours CD Cap PO SCH (10:03)
[2018-02-05] MEDS: EXEMESTANE 25 MG PO SCH (10:03)
[2018-02-05] MEDS: Metoprolol Succinate 50 mg XL Tab PO SCH (10:03)
[2018-02-05 16:47] VITALS: BP 117/78; PULSE 71; O2SAT 98
--- NOTE | 2018-02-05 17:16 | CP.PCM.PN ---
Subjective - Date & Time of Evaluation Date of Evaluation: 02/05/18 Time of Evaluation: 10:45 - Subjective Subjective: PGY 2 Medicine Note- Dr. Crews's service Patient seen and examined in no acute distress. Patient was to go for cardioversion but procedure was canceled. Patient denies acute complaints currently. Patient ambulating without difficulty. She denies chest pain, palpitations or shortness of breath. Objective - Vital Signs/Intake and Output Vital Signs (last 24 hours): Temp Pulse Resp BP Pulse Ox 97.8 F 71 20 117/78 98 02/05/18 15:00 02/05/18 15:00 02/05/18 15:00 02/05/18 15:00 02/05/18 15:00 Intake and Output: 02/05/18 02/05/18 06:59 18:59 Intake Total 400 Balance 400 - Labs Labs: 02/05/18 07:19 02/05/18 07:19 PT 12.4 SECONDS (9.7-12.2) H 01/30/18 10:26 INR 1.1 01/30/18 10:26 APTT 27 SECONDS (21-34) 01/30/18 10:26 - Constitutional Appears: Non-toxic, No Acute Distress - Head Exam Head Exam: ATRAUMATIC - Eye Exam Eye Exam: EOMI Pupil Exam: NORMAL ACCOMODATION - ENT Exam ENT Exam: Mucous Membranes Moist - Cardiovascular Exam Cardiovascular Exam: +S1, +S2 - GI/Abdominal Exam GI & Abdominal Exam: Soft, Normal Bowel Sounds - Extremities Exam Extremities Exam: Full ROM - Back Exam Back Exam: Full ROM - Neurological Exam Neurological Exam: Alert, Awake, Normal Gait, Oriented x3 - Psychiatric Exam Psychiatric exam: Normal Affect, Normal Mood - Skin Skin Exam: Intact, Normal Color, Warm Assessment and Plan - Assessment and Plan (Free Text) Assessment: Atrial fibrillation HR stable currently though labile at times. Patient to have cardioversion performed per Three Knife Trimmer Dr. Owens today, however patient's rhythm converted back to sinus rhythm. There are no significant benefits to performing cardioversion since patient has converted back to sinus rhythm. Recommendations to be rate controlled during her procedure. Patient is stable to continue with procedure. On Eliquis Venous Dopplers negative F/U Echo 01/30- EF 40%. Diastolic filling pressures elevated. Refer to complete report. Axillary Lymphadenopathy Surgery may continue with procedure Recommendations for patient to be rate controlled before and during procedure. Breast Cancer Anastrozole 1mg PO [address] Cohn consulted, help appreciated Hypertension Controlled Losartan 50mg PO daily Lopressor 75mg PO BID Hyperlipidemia Crestor 5mg PO HS Asthma Controlled Advair Albuterol treatments prn SOB Singulair 10mg PO HS Insomnia Ambien 5mg PO HS Prophylactic Measures on Eliquis SCDS Protonix 40mg PO daily Colace 100mg PO BID Discussed with Dr. Crews. All medical management per Dr. Crews.
--- NOTE | 2018-02-05 19:32 | CP.PCM.PN ---
Subjective - Date & Time of Evaluation Date of Evaluation: 02/05/18 Time of Evaluation: 11:00 - Subjective Subjective: Seen ambulating, for cardioversion Objective - Vital Signs/Intake and Output Vital Signs (last 24 hours): Temp Pulse Resp BP Pulse Ox 97.8 F 71 20 117/78 98 02/05/18 15:00 02/05/18 15:00 02/05/18 15:00 02/05/18 15:00 02/05/18 15:00 - Labs Labs: 02/05/18 07:19 02/05/18 07:19 PT 12.4 SECONDS (9.7-12.2) H 01/30/18 10:26 INR 1.1 01/30/18 10:26 APTT 27 SECONDS (21-34) 01/30/18 10:26 - Head Exam Head Exam: ATRAUMATIC - Eye Exam Eye Exam: Normal appearance - ENT Exam ENT Exam: Mucous Membranes Dry - Respiratory Exam Respiratory Exam: NORMAL BREATHING PATTERN - Cardiovascular Exam Cardiovascular Exam: +S1, +S2 - GI/Abdominal Exam GI & Abdominal Exam: Normal Bowel Sounds Assessment and Plan (1) Axillary adenopathy Assessment & Plan: for biopsy once cleared by cardiology Status: Acute (2) Breast cancer Assessment & Plan: on hormonal therapy LN biopsy ? recurrence Status: Acute
== END 2018-02-05 17:07 | disposition home or self-care (01) | DRG 841 ==
LOC: C.SDS 09:19 → C.9S 13:27 → C.6T 14:09
PROVIDERS: ADMIT Internal Medicine Pulmonary Disease; ATTEND Internal Medicine Pulmonary Disease
DX: C77.3 Secondary and unspecified malignant neoplasm of axilla and upper limb lymph nodes (principal); I48.92 Unspecified atrial flutter; I48.91 Unspecified atrial fibrillation; G47.00 Insomnia, unspecified; E78.5 Hyperlipidemia, unspecified; J45.909 Unspecified asthma, uncomplicated; Z53.9 Procedure and treatment not carried out, unspecified reason; Z85.3 Personal history of malignant neoplasm of breast; Z86.73 Personal history of transient ischemic attack (TIA), and cerebral infarction without residual deficits; Z90.13 Acquired absence of bilateral breasts and nipples; I51.7 Cardiomegaly; I11.9 Hypertensive heart disease without heart failure

== ENCOUNTER 2018-02-14 09:25 | Inpatient (IN) | payer MEDICARE, MEDICAID ==
[2018-01-25 09:45] VITALS: BMI 34.9
[2018-02-14] MEDS ORDERED: ceFAZolin 1 gm in NS 2 GM/200 ML BAG IVPB ONE (12:07)
[2018-02-14] MEDS ORDERED: Midazolam 2 MG/2 ML VIAL ONE (12:10)
[2018-02-14] MEDS ORDERED: Propofol 10 mg/ml Inj (20 ML) ONE (12:10)
[2018-02-14] MEDS: Bupivacaine HCl 0.25% PF (30 ml) Inj ONE ×2 (12:34→12:50)
[2018-02-14] MEDS ORDERED: HYDROmorphone 0.5 mg/0.5 ml ISec IVP PRN (13:29)
[2018-02-14] MEDS ORDERED: Albuterol 0.083% Inhal Sol (2.5 mg/3 mL) UD INH PRN (15:00)
--- NOTE | 2018-02-14 15:13 | CP.PCM.PN ---
Subjective - Date & Time of Evaluation Date of Evaluation: 02/14/18 Time of Evaluation: 15:12 - Subjective Subjective: PGY [address] Crews: Patient was seen and examined at bedside s/p axillary node dissection. Patient is to get port-a-cath insertion tomorrow with Dr. Miller. Reports minimal pain in axillary region. Denies chest pain, palpitations, SOB. Past medical history: Afib, asthma, HTN,, hyperlipidemia, TIA (2 years ago), and breast cancer Past surgical history: lumpectomy, b/l mastectomy Family history: Sister with breast cancer 30s Allergies: Oral and IV contrast Medications: Simvastatin 10mg PO HS, Protonix 40mg PO daily, Endocet 10/325mg 1 tab PO Q6 hours prn, Lopressor 75mg PO BID, Losartan 50mg PO daily. Advair, Colace 100mg PO daily, Eliquis 5mg PO BID, Anastrozole 1mg PO daily, Ventolin HFA Social history: Denies tobacco, alcohol, and illicit drug use. Objective - Vital Signs/Intake and Output Vital Signs (last 24 hours): Temp Pulse Resp BP Pulse Ox 97.2 F L 84 14 150/81 98 02/14/18 13:27 02/14/18 14:45 02/14/18 14:45 02/14/18 14:45 02/14/18 14:45 Intake and Output: 02/14/18 02/14/18 06:59 18:59 Intake Total 500 Output Total 0 Balance 500 - Medications Medications: Current Medications Albuterol Sulfate (Albuterol 0.083% Inhal Dyana (2.5 Mg/3 Ml) Ud) 2.5 mg INH RQ6 PRN PRN Reason: Wheezing Docusate Sodium (Colace) 100 mg PO BID [facility] Hydromorphone HCl (Dilaudid) 0.5 mg IVP Q5M PRN PRN Reason: Pain, severe (8-10) Stop: 02/14/18 15:30 Last Admin: 02/14/18 14:29 Dose: 0.5 mg Ondansetron HCl (Zofran Inj) 4 mg IVP ONCE PRN PRN Reason: Nausea/Vomiting Stop: 02/14/18 15:30 Ondansetron HCl (Zofran Inj) 4 mg IVP Q6 PRN PRN Reason: Nausea/Vomiting Oxycodone/Acetaminophen (Percocet 5/325 Mg Tab) 2 tab PO Q4H PRN PRN Reason: pain Stop: 02/17/18 13:30 Pantoprazole Sodium (Protonix Inj) 40 mg IVP DAILY [facility] - Constitutional Appears: Non-toxic, No Acute Distress - Head Exam Head Exam: ATRAUMATIC, NORMAL INSPECTION - Eye Exam Eye Exam: EOMI. absent: Scleral icterus Pupil Exam: PERRL - ENT Exam ENT Exam: Mucous Membranes Moist - Respiratory Exam Respiratory Exam: Clear to Ausculation Bilateral, NORMAL BREATHING PATTERN. absent: Rales, Rhonchi, Wheezes - Cardiovascular Exam Cardiovascular Exam: Irregular Rhythm, +S1, +S2 - Extremities Exam Additional comments: Bandaged axillae - c/d/i - bulb drain minimal serosanguinous drainage - Back Exam Back Exam: absent: CVA tenderness (L), CVA tenderness (R) - Neurological Exam Neurological Exam: Alert, Awake, Oriented x3 - Psychiatric Exam Psychiatric exam: Normal Affect, Normal Mood - Skin Skin Exam: Dry, Normal Color, Warm Assessment and Plan - Assessment and Plan (Free Text) Plan: s/p Axillary Lymphadenopathy Dr. Miller, surgical Recommendations for patient to be rate controlled before and during procedure. Pain per surgical management Atrial fibrillation Rate controlled Holding Eliquis - will resume tomorrow Dr. Burnett, x ray consultant per Dr. Miller Breast Cancer Anastrozole 1mg PO daily Hypertension Controlled Losartan 50mg PO daily Lopressor 50mg PO BID Hyperlipidemia Crestor 5mg PO HS Asthma Controlled Advair Albuterol treatments prn SOB Singulair 10mg PO HS Insomnia Ambien 5mg PO HS Prophylactic Measures on Eliquis SCDS Protonix 40mg PO daily Colace 100mg PO BID Discussed with Dr. Crews. All medical management per Dr. Crews.
[2018-02-14] MEDS: Oxycodone/Acetaminophen 5/325 mg Tab PO PRN (17:45)
[2018-02-14] MEDS ORDERED: Albuterol HFA 90 mcg/actuation (8 g) INH PRN (18:00)
[2018-02-14] MEDS ORDERED: Fluticasone-Salmeterol 250-50mcg Diskus IH SCH (20:00)
[2018-02-15] MEDS: Oxycodone/Acetaminophen 5/325 mg Tab PO PRN ×3 (00:01→11:11)
--- NOTE | 2018-02-15 00:36 | OP ---
PROCEDURE DATE: 02/14/2018 PREOPERATIVE DIAGNOSIS: Right axillary mass. PREOPERATIVE DIAGNOSIS: Right axillary mass. PROCEDURE PERFORMED: Right deep axillary limited node dissection with ultrasound-guided right axillary exploration. SURGEON: Vincent Miller MD ANESTHESIA: General. BLOOD LOSS: 30 mL. POSTOPERATIVE CONDITION: Stable. INDICATIONS FOR SURGERY: This is a 72-year-old female, status post bilateral mastectomy with a right axillary node dissection for right breast cancer. She recently underwent a PET scan in which a lymph node in the right axilla lid up and is now admitted for right axillary exploration and removal. GROSS FINDINGS: Upon exploration of the axilla, there was evidence of previous dissection. There was little remaining sosa tissue. However, the remaining tissue was dissected free, and some smaller nodes were sent for specimen, and an effort was made to locate larger node including ultrasound-guided aspiration. However, none could be located. Basically, all three levels of the axilla were addressed, and since no node was found, the nodes removed were sent for specimen, and the procedure was abandoned. DESCRIPTION OF PROCEDURE: The patient was taken to the operating room, general anesthesia was administered. The right axilla was prepped and draped and the right arm extended. Right axillary incision was made. The axillary fascia was divided and the axillary exploration was carried out. All three levels of the axilla were addressed, and the bleeding was controlled using Bovie. Some bleeding from the axillary vein was repaired with Prolene. The ultrasound was then introduced, and the whole area was examined with the ultrasound. However, no distinct large lymph node could be ascertained. The remaining sosa tissue was dissected free and removed. The wound was irrigated with saline. Tissue flap closure was performed with multiple layers of Monocryl, subcuticular Monocryl, and skin clips. The patient tolerated the procedure well. Returned to recovery room in stable condition. Vincent Miller MD
--- NOTE | 2018-02-15 08:11 | CP.PCM.CON ---
History of Present Illness - History of Present Illness History of Present Illness: patient seen/examined. consult to follow. s/p lumpectomy and axillary lymph node dissection. has a history of atrialfibrillation. currently rate controlled. will restart Eliquis 5 mg BID when clear from a surgical standpoint. Past Patient History - Past Medical History & Family History Past Medical History?: Yes - Past Social History Smoking Status: Never Smoked - CARDIAC Hx Cardiac Disorders: Yes Hx Cardia Arrhythmia: Yes (ATRIAL FIB.) Hx Hypercholesterolemia: Yes Hx Hypertension: Yes - PULMONARY Hx Respiratory Disorders: Yes Hx Asthma: Yes (Last attack 3 years ago) - NEUROLOGICAL Hx Neurological Disorder: Yes Hx Transient Ischemic Attacks (TIA): Yes (2 years ago) - HEENT Hx HEENT Problems: No Other/Comment: wears glasses - RENAL Hx Chronic Kidney Disease: No - ENDOCRINE/METABOLIC Hx Endocrine Disorders: No - HEMATOLOGICAL/ONCOLOGICAL Hx Blood Disorders: Yes Hx Blood Transfusions: No Hx Cancer: Yes (R Breast CA on PO med) - INTEGUMENTARY Hx Dermatological Problems: Yes Other/Comment: left breast biopsy site with felipe in place - MUSCULOSKELETAL/RHEUMATOLOGICAL Hx Falls: Yes - GASTROINTESTINAL Hx Gastrointestinal Disorders: No - GENITOURINARY/GYNECOLOGICAL Hx Genitourinary Disorders: Yes (Urinary frequency) Other/Comment: HX: OVARIAN CYST AND FALLOPIAN TUBE REMOVED 49 YEARS AGO-PER NOTES. - PSYCHIATRIC Hx Substance Use: No - SURGICAL HISTORY Hx Surgeries: Yes Hx Breast Biopsy: Yes (bilateral) Hx Cardiac Catheterization: Yes Hx Mastectomy: Yes (09/26/17 bilateral) Hx Orthopedic Surgery: Yes Other/Comment: HX;removal ovarian cyst and fallopian tube 49 years ago. HX: Left breast lymphadectomy from breast CA. HX: AURY 08/17/17 - ANESTHESIA Hx Anesthesia: Yes Hx Anesthesia Reactions: No Hx Malignant Hyperthermia: No Meds Allergies/Adverse Reactions: Allergies Allergy/AdvReac Type Severity Reaction Status Date / Time Iodinated Contrast- Oral and Allergy Intermediate SHORTNESS Verified 10/17/17 09 :58 IV Dye OF BREATH [Iodinated Contrast Media - Oral and] - Medications Medications: Current Medications Albuterol (Ventolin Hfa 90 Mcg/Actuation (8 G)) 1 puff INH RBID PRN PRN Reason: Shortness of Breath Albuterol Sulfate (Albuterol 0.083% Inhal Dyana (2.5 Mg/3 Ml) Ud) 2.5 mg INH RQ6 PRN PRN Reason: Wheezing Anastrozole (Arimidex 1 Mg Tab) 1 mg PO DAILY [facility] Docusate Sodium (Colace) 100 mg PO BID [facility] Last Admin: 02/14/18 20:11 Dose: 100 mg Losartan Potassium (Cozaar) 50 mg PO DAILY [facility] Metoprolol Tartrate (Lopressor) 50 mg PO BID [facility] Last Admin: 02/14/18 20:12 Dose: 50 mg Montelukast Sodium (Singulair) 10 mg PO DAILY [facility] Ondansetron HCl (Zofran Inj) 4 mg IVP Q6 PRN PRN Reason: Nausea/Vomiting Oxybutynin Chloride (Ditropan Xl) 10 mg PO DAILY [facility] Oxycodone/Acetaminophen (Percocet 5/325 Mg Tab) 2 tab PO Q4H PRN PRN Reason: pain Stop: 02/17/18 13:30 Last Admin: 02/15/18 06:36 Dose: 2 tab Pantoprazole Sodium (Protonix Inj) 40 mg IVP DAILY [facility] Rosuvastatin Calcium (Crestor) 5 mg PO HS [facility] Last Admin: 02/14/18 22:32 Dose: 5 mg Fluticasone/Salmeterol (Advair Diskus 250/50) 1 puff IH RQ12 [facility] Last Admin: 02/15/18 07:56 Dose: Not Given Results - Vital Signs Recent Vital Signs: Last Vital Signs Temp 97.9 F 02/15/18 04:10 Pulse 62 02/15/18 04:11 Resp 20 02/15/18 04:10 BP 130/70 02/15/18 04:10 Pulse Ox 97 02/15/18 04:10
--- NOTE | 2018-02-15 08:11 | CP.PCM.CON ---
Past Patient History - Past Medical History & Family History Past Medical History?: Yes - Past Social History Smoking Status: Never Smoked - CARDIAC Hx Cardiac Disorders: Yes Hx Cardia Arrhythmia: Yes (ATRIAL FIB.) Hx Hypercholesterolemia: Yes Hx Hypertension: Yes - PULMONARY Hx Respiratory Disorders: Yes Hx Asthma: Yes (Last attack 3 years ago) - NEUROLOGICAL Hx Neurological Disorder: Yes Hx Transient Ischemic Attacks (TIA): Yes (2 years ago) - HEENT Hx HEENT Problems: No Other/Comment: wears glasses - RENAL Hx Chronic Kidney Disease: No - ENDOCRINE/METABOLIC Hx Endocrine Disorders: No - HEMATOLOGICAL/ONCOLOGICAL Hx Blood Disorders: Yes Hx Blood Transfusions: No Hx Cancer: Yes (R Breast CA on PO med) - INTEGUMENTARY Hx Dermatological Problems: Yes Other/Comment: left breast biopsy site with felipe in place - MUSCULOSKELETAL/RHEUMATOLOGICAL Hx Falls: Yes - GASTROINTESTINAL Hx Gastrointestinal Disorders: No - GENITOURINARY/GYNECOLOGICAL Hx Genitourinary Disorders: Yes (Urinary frequency) Other/Comment: HX: OVARIAN CYST AND FALLOPIAN TUBE REMOVED 49 YEARS AGO-PER NOTES. - PSYCHIATRIC Hx Substance Use: No - SURGICAL HISTORY Hx Surgeries: Yes Hx Breast Biopsy: Yes (bilateral) Hx Cardiac Catheterization: Yes Hx Mastectomy: Yes (09/26/17 bilateral) Hx Orthopedic Surgery: Yes Other/Comment: HX;removal ovarian cyst and fallopian tube 49 years ago. HX: Left breast lymphadectomy from breast CA. HX: AURY 08/17/17 - ANESTHESIA Hx Anesthesia: Yes Hx Anesthesia Reactions: No Hx Malignant Hyperthermia: No Meds Allergies/Adverse Reactions: Allergies Allergy/AdvReac Type Severity Reaction Status Date / Time Iodinated Contrast- Oral and Allergy Intermediate SHORTNESS Verified 10/17/17 09 :58 IV Dye OF BREATH [Iodinated Contrast Media - Oral and] - Medications Medications: Current Medications Albuterol (Ventolin Hfa 90 Mcg/Actuation (8 G)) 1 puff INH RBID PRN PRN Reason: Shortness of Breath Albuterol Sulfate (Albuterol 0.083% Inhal Dyana (2.5 Mg/3 Ml) Ud) 2.5 mg INH RQ6 PRN PRN Reason: Wheezing Anastrozole (Arimidex 1 Mg Tab) 1 mg PO DAILY [facility] Docusate Sodium (Colace) 100 mg PO BID [facility] Last Admin: 02/14/18 20:11 Dose: 100 mg Losartan Potassium (Cozaar) 50 mg PO DAILY [facility] Metoprolol Tartrate (Lopressor) 50 mg PO BID [facility] Last Admin: 02/14/18 20:12 Dose: 50 mg Montelukast Sodium (Singulair) 10 mg PO DAILY [facility] Ondansetron HCl (Zofran Inj) 4 mg IVP Q6 PRN PRN Reason: Nausea/Vomiting Oxybutynin Chloride (Ditropan Xl) 10 mg PO DAILY [facility] Oxycodone/Acetaminophen (Percocet 5/325 Mg Tab) 2 tab PO Q4H PRN PRN Reason: pain Stop: 02/17/18 13:30 Last Admin: 02/15/18 06:36 Dose: 2 tab Pantoprazole Sodium (Protonix Inj) 40 mg IVP DAILY [facility] Rosuvastatin Calcium (Crestor) 5 mg PO HS [facility] Last Admin: 02/14/18 22:32 Dose: 5 mg Fluticasone/Salmeterol (Advair Diskus 250/50) 1 puff IH RQ12 [facility] Last Admin: 02/15/18 07:56 Dose: Not Given Results - Vital Signs Recent Vital Signs: Last Vital Signs Temp 97.9 F 02/15/18 04:10 Pulse 62 02/15/18 04:11 Resp 20 02/15/18 04:10 BP 130/70 02/15/18 04:10 Pulse Ox 97 02/15/18 04:10
[2018-02-15 08:23] LABS: BASO # 0.1 K/uL (0.0-0.2); BASO % 0.9 % (0.0-2.0); EOS # 0.1 K/uL (0.0-0.7); EOS % 1.4 % (0.0-4.0); HEMOGLOBIN 10.5 g/dL (11.0-16.0); LYMPH # 1.9 K/uL (1.0-4.3); MEAN CELL VOLUME 85.1 fL (81.0-99.0); MEAN CORPUSCULAR HEMOGLOBIN 28.9 pg (27.0-31.0); MONO # 0.5 K/uL (0.0-0.8); MONO % 7.1 % (0.0-10.0); NEUT # 4.1 K/uL (1.8-7.0); NEUT % 61.6 % (50.0-75.0); NRBC % 0.1 % (0.0-2.0); RBC 3.62 Mil/uL (3.80-5.20); RED CELL DISTRIBUTION WIDTH 15.5 % (11.5-14.5); WHITE BLOOD COUNT 6.6 K/uL (4.8-10.8)
[2018-02-15 08:27] LABS: INR 1.1; PROTHROMBIN TIME 12.7 SECONDS (9.7-12.2)
[2018-02-15 08:29] LABS: BLOOD UREA NITROGEN 16 mg/dL (7-17); CALCIUM 8.9 mg/dl (8.6-10.4); GFR AFRICAN-AMERICAN > 60; GFR NON-AFRICAN AMERICAN 55
--- NOTE | 2018-02-15 09:33 | CP.PCM.PN ---
Subjective - Date & Time of Evaluation Date of Evaluation: 02/15/18 Time of Evaluation: 14:15 - Subjective Subjective: PGY 2 Medicine Progress Note- Dr. Crews's service (Consult) Patient not in room in the morning, nor in the afternoon on second attempt. Could not assess. Objective - Vital Signs/Intake and Output Vital Signs (last 24 hours): Temp Pulse Resp BP Pulse Ox 97.9 F 78 20 122/74 98 02/15/18 09:07 02/15/18 09:07 02/15/18 09:07 02/15/18 09:07 02/15/18 09:07 Intake and Output: 02/15/18 02/15/18 06:59 18:59 Intake Total 150 Output Total 20 Balance 130 - Medications Medications: Current Medications Albuterol (Ventolin Hfa 90 Mcg/Actuation (8 G)) 1 puff INH RBID PRN PRN Reason: Shortness of Breath Albuterol Sulfate (Albuterol 0.083% Inhal Dyana (2.5 Mg/3 Ml) Ud) 2.5 mg INH RQ6 PRN PRN Reason: Wheezing Anastrozole (Arimidex 1 Mg Tab) 1 mg PO DAILY [facility] Docusate Sodium (Colace) 100 mg PO BID [facility] Last Admin: 02/14/18 20:11 Dose: 100 mg Losartan Potassium (Cozaar) 50 mg PO DAILY [facility] Metoprolol Tartrate (Lopressor) 50 mg PO BID [facility] Last Admin: 02/14/18 20:12 Dose: 50 mg Montelukast Sodium (Singulair) 10 mg PO DAILY [facility] Ondansetron HCl (Zofran Inj) 4 mg IVP Q6 PRN PRN Reason: Nausea/Vomiting Oxybutynin Chloride (Ditropan Xl) 10 mg PO DAILY [facility] Oxycodone/Acetaminophen (Percocet 5/325 Mg Tab) 2 tab PO Q4H PRN PRN Reason: pain Stop: 02/17/18 13:30 Last Admin: 02/15/18 06:36 Dose: 2 tab Pantoprazole Sodium (Protonix Inj) 40 mg IVP DAILY [facility] Rosuvastatin Calcium (Crestor) 5 mg PO HS [facility] Last Admin: 02/14/18 22:32 Dose: 5 mg Fluticasone/Salmeterol (Advair Diskus 250/50) 1 puff IH RQ12 [facility] Last Admin: 02/15/18 07:56 Dose: Not Given - Labs Labs: 02/15/18 08:09 02/15/18 08:09 PT 12.7 SECONDS (9.7-12.2) H 02/15/18 08:09 INR 1.1 02/15/18 08:09 APTT 31 SECONDS (21-34) 02/15/18 08:09 - Additional Findings Additional findings: Could not assess- Patient not in the room. Assessment and Plan - Assessment and Plan (Free Text) Assessment: s/p Axillary Lymphadenopathy Dr. Miller, surgical F/U recommendations Atrial fibrillation Rate controlled Dr. Burnett, engineering mathematician consulted per Dr. Miller Breast Cancer Anastrozole 1mg PO daily Hypertension Controlled Losartan 50mg PO daily Lopressor 50mg PO BID Hyperlipidemia Crestor 5mg PO HS Asthma Controlled Advair Albuterol treatments prn SOB Singulair 10mg PO HS Insomnia Ambien 5mg PO HS Prophylactic Measures on Eliquis SCDS Protonix 40mg PO daily Colace 100mg PO BID Discussed with Dr. Crews. All medical management per Dr. Crews.
[2018-02-15] MEDS ORDERED: Oxybutynin XL 10 mg Tab PO SCH (10:00)
[2018-02-15] MEDS ORDERED: Pantoprazole 40 mg EC Tab PO SCH (10:00)
[2018-02-15] MEDS ORDERED: Bupivacaine HCl 0.25% PF (30 ml) Inj ONE (14:07)
[2018-02-15] MEDS ORDERED: Lidocaine/Epinephrine 1% 1:100000 10 ML IJ ONE (14:07)
[2018-02-15] MEDS ORDERED: HEPARIN-NS 5,000 UNITS/500 ML 5,000 UNIT/500 ML BAG IV ONE (14:08)
[2018-02-15] MEDS ORDERED: ceFAZolin 1 gm in NS 2 GM/200 ML BAG IVPB ONE (14:21)
[2018-02-15] MEDS ORDERED: Propofol 10 mg/ml Inj (20 ML) ONE (14:26)
[2018-02-15] MEDS ORDERED: Midazolam 2 MG/2 ML VIAL ONE (14:26)
[2018-02-15] MEDS: Bupivacaine HCl 0.25% PF (30 ml) Inj ONE (14:41)
--- NOTE | 2018-02-15 15:32 | RAD ---
PROCEDURE: Intraoperative Fluoroscopy. HISTORY: BREAST CA FINDINGS: Fluoroscopic assistance was provided. 8.2 seconds fluoroscopy time utilized during this procedure. Radiation dose = 1.18 mGy Please refer to the operative report for additional details.
--- NOTE | 2018-02-15 15:45 | RAD ---
HISTORY: sp portacath COMPARISON: 11/07/2017 FINDINGS: LUNGS: No active pulmonary disease. PLEURA: No significant pleural effusion identified, no pneumothorax apparent. CARDIOVASCULAR: Normal heart size. Left central venous infusion port. OSSEOUS STRUCTURES: No significant abnormalities. VISUALIZED UPPER ABDOMEN: Normal. OTHER FINDINGS: None. IMPRESSION: No active disease.
[2018-02-15 16:18] VITALS: TEMP 97.6
[2018-02-15 16:21] VITALS: BP 154/82; PULSE 78; RESP 20; O2SAT 97
--- NOTE | 2018-02-15 22:03 | CARD ---
APPROVED REPORT EKG Measurement Heart [id number] <Conclusion> Atrial fibrillation Abnormal ECG
--- NOTE | 2018-02-16 00:22 | OP ---
PROCEDURE DATE: 02/15/2018. PREOPERATIVE DIAGNOSIS: Breast cancer. POSTOPERATIVE DIAGNOSIS: Breast cancer. PROCEDURE: Port-A-Cath insertion. SURGEON: Vincent Miller MD. TYPE OF ANESTHESIA: General. ESTIMATED BLOOD LOSS: 30 mL POSTOP CONDITION: Stable. INDICATIONS FOR SURGERY: A 72-year-old female who presented yesterday with a possible metastatic lesion in her right axilla. Today will undergo Port-A-Cath insertion for breast cancer. DESCRIPTION OF PROCEDURE: The patient taken to the operating room. IV sedation was administered. Then the left chest wall was prepped and draped. The left subclavian vein was easily cannulated and a guidewire was inserted. A subcutaneous pocket was created through the puncture site by raising superior and inferior tissue flaps. Bleeding from beneath the flaps was controlled using Bovie and repaired. A catheter was introduced at the level of the vena cava and this was confirmed fluoroscopically. The catheter was connected to subcutaneous ports, this was placed beneath the tissue flaps, and a tissue flap closure was performed in multiple layers of Monocryl, subcuticular Monocryl and glue. The patient tolerated the procedure well. Returned to recovery room in stable condition. Vincent Miller MD
[2018-02-16] MEDS ORDERED: Pneumococcal 23-Valent Vaccine IM ONE (10:00)
== END 2018-02-15 17:24 | disposition home or self-care (01) | DRG 581 ==
LOC: C.SDS 09:25 → C.9S 13:30 → C.6T 19:57
PROVIDERS: ADMIT Surgery; ATTEND Surgery
PROC: 05Q Upper Veins, Repair (ICD-10-PCS; 2018-02-14)
PROC: 0JXD0ZZ Transfer Right Upper Arm Subcutaneous Tissue and Fascia, Open Approach (ICD-10-PCS; 2018-02-14)
PROC: B54MZZZ Ultrasonography of Right Upper Extremity Veins (ICD-10-PCS; 2018-02-14)
PROC: 07B50ZX Excision of Right Axillary Lymphatic, Open Approach, Diagnostic (ICD-10-PCS; principal; 2018-02-14 12:00)
PROC: 0JH63WZ Insertion of Totally Implantable Vascular Access Device into Chest Subcutaneous Tissue and Fascia, Percutaneous Approach (ICD-10-PCS; 2018-02-15)
PROC: 02HV33Z Insertion of Infusion Device into Superior Vena Cava, Percutaneous Approach (ICD-10-PCS; 2018-02-15)
DX: C50.911 Malignant neoplasm of unspecified site of right female breast (principal); E78.00 Pure hypercholesterolemia, unspecified; G47.00 Insomnia, unspecified; I10 Essential (primary) hypertension; I48.91 Unspecified atrial fibrillation; Z79.01 Long term (current) use of anticoagulants; Z86.73 Personal history of transient ischemic attack (TIA), and cerebral infarction without residual deficits

== ENCOUNTER 2018-11-12 08:40 | Inpatient (IN) | payer MEDICARE, MEDICAID ==
[2018-11-12 08:40] VITALS: BMI 34.9
--- NOTE | 2018-11-12 09:38 | C.PDOC ---
History Of Present Illness 73 y/o female, w/PMhx of breast cancer, presents to the ER complaining of right arm lump which has been present for the past 2 months. Patient states that she was evaluated by Dr. Miller and he referred her to the ER. Patient denies having fever and chills. Time Seen by Provider: 11/12/18 09:30 Chief Complaint (Nursing): Abnormal Skin Integrity History Per: Patient History/Exam Limitations: no limitations Onset/Duration Of Symptoms: Days Current Symptoms Are (Timing): Still Present Severity: Moderate Past Medical History Reviewed: Historical Data, Nursing Documentation, Vital Signs Vital Signs: Last Vital Signs Temp 97.6 F 11/12/18 08:47 Pulse 71 11/12/18 08:47 Resp 17 11/12/18 08:47 BP 148/75 11/12/18 08:47 Pulse Ox 99 11/12/18 08:47 - Medical History PMH: Asthma, Cardia Arrhythmia (ATRIAL FIB.), Fractures (ORIF left ankle), HTN, Hypercholesterolemia, TIA Denies: Chronic Kidney Disease Surgical History: [place] [facility] CORONAR ARTERIOGR-2 CATH (02/08/12) DRAINAGE OF CHEST WALL, OPEN APPROACH (11/07/17) LEFT HEART CARDIAC CATH (02/08/12) RESECTION OF BILATERAL BREAST, OPEN APPROACH (09/26/17) RT & LT HEART ANGIOCARD (02/08/12) Family History: States: No Known Family Hx - Social History Hx Alcohol Use: No Hx Substance Use: No - Immunization History Hx Tetanus Toxoid Vaccination: No Hx Influenza Vaccination: Yes Hx Pneumococcal Vaccination: Yes Review Of Systems Except As Marked, All Systems Reviewed And Found Negative. Constitutional: Negative for: Fever, Chills Musculoskeletal: Positive for: Other (right arm lump) Physical Exam - Physical Exam Appears: Non-toxic, No Acute Distress Skin: Normal Color, Warm, Dry Head: Atraumatic, Normacephalic Eye(s): bilateral: Normal Inspection Nose: Normal Oral Mucosa: Moist Neck: Supple Chest: Symmetrical Cardiovascular: Rhythm Regular Respiratory: Normal Breath Sounds, No Rales, No Rhonchi, No Wheezing Gastrointestinal/Abdominal: Soft, No Tenderness, No Guarding, No Rebound Extremity: Normal ROM, Other (questionable lymph node to right arm) Neurological/Psych: Oriented x3, Normal Speech ED Course And Treatment - Laboratory Results Result Diagrams: 11/12/18 10:00 11/12/18 10:20 ECG: Interpreted By Me, Viewed By Me ECG Rhythm: Atrial Fibrillation Rate From EC O2 Sat by Pulse Oximetry: 99 (RA) Pulse Ox Interpretation: Normal - Other Rad CXR X-Ray: Viewed By Me, Read By Radiologist Interpretation: Date of service: 11/12/2018. HISTORY: preop. COMPARISON: 02/15/2018. FINDINGS: LUNGS: No active pulmonary disease. PLEURA: No significant pleural effusion identified, no pneumothorax apparent. CARDIOVASCULAR: No aortic atherosclerotic calcification present. Mild cardiomegaly-similar probable top-normal pulmonary venous congestion status. Left Port-A-Cath insertion tip superior vena cava-similar. OSSEOUS STRUCTURES: Bilateral shoulder arthrosis. VISUALIZED UPPER ABDOMEN: Normal. OTHER FINDINGS: None. IMPRESSION: Mild cardiomegaly-probable top-normal pulmonary venous congestion. Left MediPort insertion with tip superior vena cava as before. Other findings as above. Medical Decision Making Medical Decision Making: Plan: --Labs --EKG --CXR discussed with belén wilks pmd admission Disposition - Disposition Disposition: HOSPITALIZED Disposition Time: 14:00 Condition: STABLE - Clinical Impression Clinical Impression: Localized swelling, mass and lump, right upper limb - Scribe Statement The provider has reviewed the documentation as recorded by the Lisethibe Neil Rosado Provider Attestation: All medical record entries made by the Scribe were at my direction and personally dictated by me. I have reviewed the chart and agree that the record accurately reflects my personal performance of the history, physical exam, medical decision making, and the department course for this patient. I have also personally directed, reviewed, and agree with the discharge instructions and disposition. Decision To Admit - Pt Status Changed To: Hospital Disposition Of: Inpatient - Admit Certification Admit to Inpatient:: After my assessment, the patient will require hospitalization for at least two midnights. This is because of the severity of symptoms shown, intensity of services needed, and/or the medical risk in this patient being treated as an outpatient. - InPatient: Physician Admission Certification: I certify that this patient requires 2 or more midnights of care for the following reason:: surgeon requests admission for or - . Bed Request Type: Regular Admitting Physician: Marcell Crews Patient Diagnosis: Localized swelling, mass and lump, right upper limb
[2018-11-12 10:06] LABS: BASO # 0.1 K/uL (0.0-0.2); NEUT % 65.3 % (50.0-75.0)
[2018-11-12 10:18] LABS: BASO % 0.8 % (0.0-2.0); EOS # 0.2 K/uL (0.0-0.7); EOS % 1.9 % (0.0-4.0); LYMPH # 2.1 K/uL (1.0-4.3); LYMPH % 25.1 % (20.0-40.0); MEAN CELL VOLUME 86.5 fL (81.0-99.0); MEAN CORPUSCULAR HEMOGLOBIN 28.1 pg (27.0-31.0); MEAN CORPUSCULAR HGB CONC 32.4 g/dL (33.0-37.0); MEAN PLATELET VOLUME 8.6 fL (7.2-11.7); MONO # 0.6 K/uL (0.0-0.8); MONO % 6.9 % (0.0-10.0); NEUT # 5.4 K/uL (1.8-7.0); RBC 4.27 Mil/uL (3.80-5.20); RED CELL DISTRIBUTION WIDTH 16.4 % (11.5-14.5); WHITE BLOOD COUNT 8.2 K/uL (4.8-10.8)
[2018-11-12 10:21] LABS: INR 1.1; PROTHROMBIN TIME 11.5 SECONDS (9.7-12.2)
[2018-11-12 10:36] LABS: ALB/GLOB RATIO 1.3 (1.0-2.1); ALT/SGPT 22 U/L (9-52); AST/SGOT 17 U/L (14-36); BLOOD UREA NITROGEN 18 mg/dL (7-17); CALCIUM 9.4 mg/dl (8.6-10.4); GFR NON-AFRICAN AMERICAN > 60
--- NOTE | 2018-11-12 11:00 | RAD ---
Date of service: 11/12/2018 HISTORY: preop COMPARISON: 02/15/2018 FINDINGS: LUNGS: No active pulmonary disease. PLEURA: No significant pleural effusion identified, no pneumothorax apparent. CARDIOVASCULAR: No aortic atherosclerotic calcification present. Mild cardiomegaly-similar probable top-normal pulmonary venous congestion status. Left Port-A-Cath insertion tip superior vena cava-similar. OSSEOUS STRUCTURES: Bilateral shoulder arthrosis. VISUALIZED UPPER ABDOMEN: Normal. OTHER FINDINGS: None. IMPRESSION: Mild cardiomegaly-probable top-normal pulmonary venous congestion. Left MediPort insertion with tip superior vena cava as before. Other findings as above.
--- NOTE | 2018-11-12 14:32 | CP.PCM.PN ---
Subjective - Date & Time of Evaluation Date of Evaluation: 11/12/18 Time of Evaluation: 13:00 - Subjective Subjective: Progress Note for Dr. Crews 73 year old Egyptian female with history of breast cancer s/p mastectomy, asthma, HTN and A fib was sent to the ED from Dr. Miller. Patient was at Dr. Miller's office last Sunday for her right arm mass. She was told it may be infected and need to be surgically removed. She was specially instructed to go to the hospital on 11/12. She first noticed this mass shortly after her mastectomy in September 2017, it grew bigger in a course of a year. Patient reports having pain whenever she moves her right arm. There was no recent trauma to the area. Denies fever, chill, headache, palpitations, shortness of breath, chest pain, dizziness, and abdominal pain. PMHx: Afib, asthma, HTN,, hyperlipidemia, TIA (2 years ago), and breast cancer PSHx: lumpectomy, b/l mastectomy Family Hx: Sister with breast cancer Allergies: Oral and IV contrast Medications: Simvastatin, Losartan, Eliquis, Diltiazem, Ambien, Percocet Social history: Denies tobacco, alcohol, and illicit drug use. Pharmacy: [facility] PMD: Dr. Crews Heme/onc: Dr. Cohn Objective - Vital Signs/Intake and Output Vital Signs (last 24 hours): Temp Pulse Resp BP Pulse Ox 98.4 F 56 L 18 144/79 99 11/12/18 11:11 11/12/18 11:11 11/12/18 11:11 11/12/18 11:11 11/12/18 11:29 - Labs Labs: 11/12/18 10:00 11/12/18 10:20 PT 11.5 SECONDS (9.7-12.2) 11/12/18 10:00 INR 1.1 11/12/18 10:00 APTT 26 SECONDS (21-34) 11/12/18 10:00 - Additional Findings Additional findings: - Constitutional Appears: Non-toxic, No Acute Distress - Head Exam Head Exam: ATRAUMATIC, NORMAL INSPECTION - Eye Exam Eye Exam: EOMI. absent: Scleral icterus Pupil Exam: PERRL - ENT Exam ENT Exam: Mucous Membranes Moist - Respiratory Exam Respiratory Exam: Clear to Ausculation Bilateral, NORMAL BREATHING PATTERN. absent: Rales, Rhonchi, Wheezes - Cardiovascular Exam Cardiovascular Exam: Irregular Rhythm, +S1, +S2 - Extremities Exam Additional comments: Large mobile mass located at right upper arm slightly distal to right axilla. Tender to palpation, dark discoloration on skin over the mass, No active drainage appreciated. - Back Exam Back Exam: absent: CVA tenderness (L), CVA tenderness (R) - Neurological Exam Neurological Exam: Alert, Awake, Oriented x3 - Psychiatric Exam Psychiatric exam: Normal Affect, Normal Mood - Skin Skin Exam: Dry, Warm Additional comments: left chest port a cath Assessment and Plan - Assessment and Plan (Free Text) Assessment: Infect right arm mass -Afebrile, no leukocytosis -Surgery consulted, Dr. Miller -Planned for OR today to remove both mass and portacath -Ancef 1gm IV Q8hr -Percocent 2 tabs Q4 PRN Breast Cancer s/p mastectomy -Monthly outpatient follow up with Dr. Cohn Atrial fibrillation -Cardizem 240mg -Eliquis 5mg BID (hold for surgery) Hypertension -Losartan 50mg Hyperlipidemia -Crestor 5mg Case discussed with attending Dr. Crews
[2018-11-12] MEDS ORDERED: Propofol 10 mg/ml Inj (20 ML) ONE (14:57)
[2018-11-12] MEDS ORDERED: Midazolam 2 MG/2 ML VIAL ONE (14:57)
[2018-11-12] MEDS ORDERED: Lidocaine Hydrochloride 5 ML INJ ONE (14:59)
[2018-11-12] MEDS ORDERED: Lidocaine Hydrochloride 0 ML INJ ONE (15:01)
[2018-11-12] MEDS ORDERED: ceFAZolin 1 gm in NS 2 GM/200 ML BAG IVPB ONE (15:02)
[2018-11-12] MEDS ORDERED: Bupivacaine 0.25% 20 ML INJ IJ ONE (15:02)
[2018-11-12] MEDS ORDERED: HYDROmorphone 0.5 mg/0.5 ml ISec IVP PRN (15:46)
[2018-11-12] MEDS ORDERED: ceFAZolin 1 GM in Sodium Chloride 0.9% 100 ML IVPB SCH (16:00)
[2018-11-12 17:52] VITALS: RESP 20
--- NOTE | 2018-11-12 18:02 | OP ---
PROCEDURE DATE: 11/12/2018 PREOPERATIVE DIAGNOSES: 1. Infected mass of the right axilla. 2. Indwelling Port-A-Cath secondary to breast cancer. POSTOPERATIVE DIAGNOSES: 1. Infected mass of the right axilla. 2. Indwelling Port-A-Cath secondary to breast cancer. PROCEDURES PERFORMED: 1. Wide and deep excision of mass of the right axilla with tissue flap closure. 2. Removal of left chest wall Port-A-Cath. SURGEON: Vincent Miller MD ANESTHESIA: General. BLOOD LOSS: 30 mL. POSTOPERATIVE CONDITION: Stable. INDICATIONS FOR SURGERY: This is a 73-year-old female with bilateral breast cancer status post bilateral mastectomy last year. She completed her course of chemotherapy 2 months ago and was stable until she discovered a mass in her right arm which was very painful recently. She presented to my office, found to have a mass associated with some cellulitis and the decision was made to admit her to the hospital for exploratory surgery to remove the lump or possibly drain an abscess and also remove the Port-A-Cath while she was in the operating room. GROSS FINDINGS: There was a 5 cm mass in the left arm appeared to be consistent with a soft tissue neoplasm, a wide and deep (radical resection) was performed due to the history of breast cancer. PROCEDURE: The patient was taken to the operating room, general anesthesia was administered. An elliptical incision was made surrounding the 5 cm mass in the left arm, was carried down into the fascial layer. Bleeding was controlled using the Bovie. Larger blood vessel was noted to be bleeding, mobilized, repaired with Prolene. Blood flow was confirmed by Doppler. Generous full-thickness tissue flaps were raised. Counter incisions were made and a 32 cm2 advancement flap closure was performed with multiple layers of Monocryl, subcuticular Monocryl and skin clips. Attention was then turned to the left chest wall where an incision was made over the Port-A-Cath and it was removed. Skin was closed with skin felipe. The patient tolerated procedure well. Returned to recovery room in stable condition. Vincent Miller MD SHANTE[facility]
[2018-11-12] MEDS: ceFAZolin 1 GM in Sodium Chloride 0.9% 100 ML IVPB SCH (22:15)
[2018-11-13] MEDS: Oxycodone/Acetaminophen 5/325 mg Tab PO PRN ×2 (00:24→06:20)
[2018-11-13 06:28] LABS: BASO # 0.1 K/uL (0.0-0.2); BASO % 0.7 % (0.0-2.0); EOS # 0.2 K/uL (0.0-0.7); HEMOGLOBIN 12.2 g/dL (11.0-16.0); LYMPH # 2.4 K/uL (1.0-4.3); LYMPH % 31.8 % (20.0-40.0); MEAN CELL VOLUME 86.1 fL (81.0-99.0); MEAN CORPUSCULAR HEMOGLOBIN 28.4 pg (27.0-31.0); MEAN PLATELET VOLUME 8.9 fL (7.2-11.7); MONO # 0.5 K/uL (0.0-0.8); MONO % 7.2 % (0.0-10.0); NEUT # 4.4 K/uL (1.8-7.0); NEUT % 58.3 % (50.0-75.0); NRBC % 0.1 % (0.0-2.0); RBC 4.3 Mil/uL (3.80-5.20); RED CELL DISTRIBUTION WIDTH 16.5 % (11.5-14.5); WHITE BLOOD COUNT 7.5 K/uL (4.8-10.8)
[2018-11-13] MEDS: ceFAZolin 1 GM in Sodium Chloride 0.9% 100 ML IVPB SCH (06:28)
[2018-11-13 06:47] LABS: BLOOD UREA NITROGEN 19 mg/dL (7-17); CALCIUM 9.6 mg/dl (8.6-10.4); GFR NON-AFRICAN AMERICAN > 60
[2018-11-13 07:36] VITALS: BP 139/83; PULSE 76; TEMP 98.1; O2SAT 96
[2018-11-13] MEDS ORDERED: diltiaZEM 240 mg/24 Hours CD Cap PO SCH (10:00)
--- NOTE | 2018-11-13 11:05 | CARD ---
APPROVED REPORT Date of service: 11/12/2018 EKG Measurement Heart [id number] <Conclusion> Atrial fibrillation Abnormal ECG
--- NOTE | 2018-11-13 11:28 | CP.PCM.PN ---
Subjective - Date & Time of Evaluation Date of Evaluation: 11/13/18 Time of Evaluation: 07:00 - Subjective Subjective: PGY2- Progress Note for Dr. Crews Patient seen and examined at bedside. Patient has no complaints. Patient has mild pain over the surgical sites. Patient denies any chest pain, shortness of breath, abdominal pain, nausea, vomiting, diarrhea or constipation. Objective - Vital Signs/Intake and Output Vital Signs (last 24 hours): Temp Pulse Resp BP Pulse Ox 98.1 F 76 20 139/83 96 11/13/18 07:33 11/13/18 07:33 11/13/18 07:33 11/13/18 07:33 11/13/18 07:33 Intake and Output: 11/13/18 11/13/18 06:59 18:59 Intake Total 220 Balance 220 - Labs Labs: 11/13/18 06:20 11/13/18 06:20 PT 11.5 SECONDS (9.7-12.2) 11/12/18 10:00 INR 1.1 11/12/18 10:00 APTT 26 SECONDS (21-34) 11/12/18 10:00 - Constitutional Appears: Non-toxic, No Acute Distress - Head Exam Head Exam: ATRAUMATIC, NORMAL INSPECTION, NORMOCEPHALIC - Eye Exam Eye Exam: EOMI, Normal appearance - ENT Exam ENT Exam: Mucous Membranes Moist - Respiratory Exam Respiratory Exam: Clear to Ausculation Bilateral, NORMAL BREATHING PATTERN - Cardiovascular Exam Cardiovascular Exam: REGULAR RHYTHM, RRR, +S1, +S2 - GI/Abdominal Exam GI & Abdominal Exam: Soft, Normal Bowel Sounds. absent: Tenderness - Extremities Exam Extremities Exam: Normal Inspection - Neurological Exam Neurological Exam: Alert, Awake, Oriented x3 - Psychiatric Exam Psychiatric exam: Normal Affect, Normal Mood - Skin Additional comments: left port a cath site covered in c/d/i dressing right under arm incision covered in c/d/i dressing Assessment and Plan - Assessment and Plan (Free Text) Assessment: Removal of right arm mass, POD #1 -Afebrile, no leukocytosis -Surgery consulted, Dr. Miller -Ancef 1gm IV Q8hr -Percocet 2 tabs Q4 PRN Removal of Port a Cath, POD #1 -Ancef 1gm IV Q8hr -Percocet 2 tabs Q4 PRN Breast Cancer s/p mastectomy -Monthly outpatient follow up with Dr. Cohn Atrial fibrillation -Cardizem 240mg -Eliquis 5mg BID (hold for surgery) Hypertension -Losartan 50mg Hyperlipidemia -Crestor 5mg Dispo: Patient stable for discharge as per Dr. Crews and Dr. Miller. Patient to take Duricef 500mg po BID for 5 days and Tramadol 50mg q6h as needed. Patient will follow up with Dr. Miller next wee. Case discussed with attending Dr. Crews
--- NOTE | 2018-11-14 06:30 | HP ---
HISTORY OF PRESENT ILLNESS: Ms. Renetta Nunez admitted to the hospital with chief complaint of left arm mass, had removal of Port-A-Cath, history of breast cancer. The patient had a mass in the left axilla. The patient advised admission to the hospital. The patient has history of breast cancer. PHYSICAL EXAMINATION: GENERAL: The patient is awake, alert, oriented. VITAL SIGNS: Temperature 98, pulse 90. HEENT: Within normal limit. NECK: Supple. CHEST: Symmetrical there is a Port-A-Cath there is a mass up adjacent to the axilla and the upper arm. ABDOMEN: Soft. EXTREMITIES: No edema. Patient suffers from mass of left arm, Port-A-Cath functioning. evaluation ____. Marcell Crews MD
== END 2018-11-13 11:00 | disposition home or self-care (01) | DRG 572 ==
LOC: C.ER 08:40 → C.3T 10:39
PROVIDERS: ADMIT Internal Medicine Pulmonary Disease; ATTEND Internal Medicine Pulmonary Disease
PROC: 0JBD0ZZ Excision of Right Upper Arm Subcutaneous Tissue and Fascia, Open Approach (ICD-10-PCS; principal; 2018-11-12 16:00)
PROC: 0JPV0WZ Removal of Totally Implantable Vascular Access Device from Upper Extremity Subcutaneous Tissue and Fascia, Open Approach (ICD-10-PCS; 2018-11-12 16:00)
DX: R22.31 Localized swelling, mass and lump, right upper limb (principal); E78.00 Pure hypercholesterolemia, unspecified; I10 Essential (primary) hypertension; J45.909 Unspecified asthma, uncomplicated; I48.91 Unspecified atrial fibrillation; Z86.73 Personal history of transient ischemic attack (TIA), and cerebral infarction without residual deficits; Z85.3 Personal history of malignant neoplasm of breast

== ENCOUNTER 2019-03-10 07:50 | Outpatient (CLI) | payer MEDICARE, MEDICAID | END 2019-03-10 07:51 | disposition home or self-care (01) | LOC: C.CTH 07:50 | DX: C50.119 Malignant neoplasm of central portion of unspecified female breast (principal) ==